=== PATIENT | female | born 1950 | race Caucasian/White ===

== ENCOUNTER 2021-08-31 09:58 | Day surgery (SDC) | payer MEDICARE, OTHER, SELFPAY ==
--- NOTE | 2021-08-31 | EMB_PTH ---
PATIENT: DIONNA BINGHAM [place] [facility] [place][id number] AGE/SX: 71/F ROOM: RE08/31/[address]: Dr. Parul Bangura, MDDOB: 1950 BED: DIS: 08/31/2021 SPEC #: [id number] RECD: 08/31/21 12:12 STATUS: PREMA ANURAG #: [id number] MAVERICK: 08/31/21 00:[address]: Parul Bangura DEPT: SURGICAL PATHOLOGY RECD BY: Sang Velasco ENTERED: 08/31/21 14:09 SP TYPE: ENDOM BX/C CHEPE DR: Dr. Shoshana Overton MD Tissues: Endometrium, NOS Procedures: Surgery Specimen Level IV HEADER OPERATION: Hysteroscopy, D & C Symphion, endometrial polypectomy PRE-OP DIAGNOSIS: PMB, endometrial polyp TISSUE SUBMITTED: Endometrial polyp and curettings MICROSCOPIC DIAGNOSIS Endometrial polyp and curettings: Simple and complex hyperplasia with focal atypia. See comment. DEEPALI:miller 09/01/2021 COMMENT Clinical correlation and appropriate follow up are necessary. Case has been reviewed in consultation with Dr. Lorenz who concurs with the above diagnosis. IDC:[facility] MICROSCOPIC DESCRIPTION Slides are reviewed. GROSS DESCRIPTION Received in fixative is one container labeled with the patient's name and designated endometrial polyp and curettings. The specimen consists of multiple irregular fragments of wiggins-pink soft tissue that in aggregate measure 5 x 3 x 0.6 cm. The entire specimen is submitted in four cassettes. / DEEPALI:miller 08/31/2021 TC:5 CPT: 35096 ADDENDUM ADDENDUM ADDENDUM ADDENDUM ADDENDUM ADDENDUM ADDENDUM ADDENDUM ADDENDUM ADDENDUM ADDENDUM ADDENDUM 10/18/2021 09:40 ADDENDUM 10/18/2021 09:40 ADDENDUM 10/18/2021 09:40 ADDENDUM 10/18/2021 09:40 ADDENDUM 10/18/2021 09:40 This addendum is added to incorporate an outside pathology consultation report. The case was examined at [facility] (#[id number]) and the following diagnosis was rendered. Endometrial polyp, curettings: Well differentiated endometrioid adenocarcinoma, FIGO 1, arising in a background of atypical complex endometrial hyperplasia. Benign endometrial polyp. Please see complete above mentioned consultation report in EMR
--- NOTE | 2021-08-31 10:15 | EKG12_ITS ---
Test Reason : PRE OP Blood Pressure : / mmHG Vent. Rate : 070 BPM Atrial Rate : 070 BPM P-R Int : 154 ms QRS Dur : 076 ms QT Int : 422 ms P-R-T Axes : 066 047 060 degrees QTc Int : 455 ms Normal sinus rhythm Normal ECG Confirmed by SIRISHA ARTEAGA, PEYMAN ([id number]), video editor RICK CORDERO ([id number]) on 09/05/2021 1:16:19 PM Referred By: Parul Bangura Confirmed By:PEYMAN GRIMM MD
[2021-08-31 10:41] VITALS: BP 159/76; PULSE 76; RESP 16; TEMP 37.2; O2SAT 96; BMI 37.0
[2021-08-31] MEDS: Lactated Ringers 1,000 ML 15 ML IV (11:06)
[2021-08-31 11:17] LABS: Hematocrit 45.6 % (37-47); Hemoglobin 15.2 g/dL (12.0-15.0); Mean Corp Hgb Conc 33.3 g/dL (32-36); Mean Platelet Vol. 9.5 fl (6.2-12.0); Platelet Count 367 K/mm3 (150-450); RBC Distribution Width CV 13.1 % (11.6-14.6); RBC Distribution Width SD 41.6 fl (35.1-43.9); Red Blood Count 5.24 M/mm3 (4.2-5.4); White Blood Count 9.3 K/mm3 (4.4-11.0)
--- NOTE | 2021-08-31 11:19 | PCM.PN.BLA ---
Progress Note I have re-examined the patient. There are no clinical changes since date of exam.
[2021-08-31 11:29] LABS: Anion Gap 5 (5-15); BUN 14 mg/dL (7-18); BUN/Creat Ratio 17.5 RATIO (10-20); Calcium,Total 9.1 mg/dL (8.5-10.1); Chloride 107 mmol/L (98-107); EST Glomerular Filtration Rate 75 mL/min (>60); Est Glom Filt Rate - Afr Amer 91 mL/min (>60); Estimated Creatinine Clearance 54.13 ml/min; Glucose 107 mg/dL (74-106); Potassium 4.2 mmol/L (3.5-5.1); Sodium Level 140 mmol/L (136-145)
--- NOTE | 2021-08-31 11:50 | OP.PCM_ITS ---
Report of Operation Date of Procedure: 08/31/21 Pre-Operative Diagnosis: Thickened Endometrium, PMB, Endometrial Polyp Post-Operative Diagnosis: Same Surgery/Procedure Performed:: hysteroscopy, D&C, polypectomy Description of Surgical Findings:: Large endometrial polyp and thickened tissue. both tubal ostia visualized after removal of tissue. Surgeon: Parul Bangrua Type of Anesthesia: MAC Specimen's removed: endometrial polyp, endometrial curettings Drains: none Estimated Blood Loss (mL): <5cc Fluids Replaced: 400 Description of Procedure: informed consent was obtained the patient was taken the operating room she was placed in supine position. She was given anesthesia. She was then placed in the [facility] where she was prepped and draped in the normal sterile fashion. At this time the weighted speculum was placed in the posterior fornix of vagina. Single-tooth tenaculum was used to gently grasp the anterior lip the cervix. At this time the uterine cavity was sounded to approximately 8 cm. Gentle dilatation was performed once adequate dilatation of the cervix was achieved the hysteroscope using normal saline as a distention medium was placed. large endometrial polyp and thickened tissue present. Symphion resecting device used to obtain endometrial curettings and to perform polypectomy. Tissue will be sent to pathology for evaluation. after removal of polypoid tissue bilateral tubal ostia visualized. Tenaculum removed. Good hemostasis. Instrument, lap count correct x 2. fluid deficet 800cc Vaginal Sweep was negative. Grafts/Implants Used: none Procedure Start Time: 11:37 Procedure Stop Time: 11:50 Complications none Admit VTE Documentation VTE Present on Admission: Yes VTE Mechan Device Prophylaxis: SCD's VTE Pharm Prophylaxis ordered?: No Reason prophylaxis not ordered:: Procedure Not Indicated
--- NOTE | 2021-08-31 11:53 | EX.PCM.DISCH ---
Discharge Instructions Procedure D&C Diet Discharge Diet: No restrictions Activity May resume sexual activity in: 1 week Dressing / Incision Call your doctor if you observe: Fever of 101 or Higher, Inability to urinate, Using more than 1 pad per hour and Uncontrolled pain Follow Up Care Please Follow Up With: Parul Bangura MD When: 1-2 weeks post OP if you need an appointment please call [phone] Test Results: Test results from this visit will be discussed in further detail at your follow-up appointment, if applicable. Discharge Plan Admission Attending Provider: Parul Bangura Primary Care Provider: Shoshana Overton Discharge Orders/Prescriptions Prescriptions: No Action losartan 50 mg Tablet 50 mg PO DAILY RF: 0 carbidopa-levodopa 50-200 mg Tablet Extended Release 1 tab PO TID RF: 0 selegiline HCl 5 mg Capsule 5 mg PO BID RF: 0
[2021-08-31 12:00] VITALS: BP 125/70; BP 159/76; PULSE 71; RESP 16; TEMP 36.8; O2SAT 98
[2021-08-31 12:05] VITALS: BP 132/74; BP 159/76; PULSE 71; RESP 16; O2SAT 96
[2021-08-31 12:10] VITALS: BP 130/74; BP 159/76; PULSE 69; RESP 16; O2SAT 95
[2021-08-31 12:15] VITALS: BP 126/71; BP 159/76; PULSE 68; TEMP 37.1; O2SAT 95
[2021-08-31] MEDS: Acetaminophen 500 MG Tablet 1000 MG PO (12:38)
[2021-08-31 12:59] VITALS: BP 115/73; BP 159/76; PULSE 71; RESP 16; TEMP 36.3; O2SAT 96
== END 2021-08-31 23:59 | disposition home or self-care (01) ==
LOC: SDC 10:06 → AC 10:06
PROVIDERS: PCP Internal Medicine; Referring Provider Obstetrics & Gynecology; Visit Provider Obstetrics & Gynecology
PROC: 0UB98ZZ Excision of Uterus, Via Natural or Artificial Opening Endoscopic (ICD-10-PCS; CPT 58558; principal; 2021-08-31 11:10)
DX: N84.0 Polyp of corpus uteri (principal); G20 Parkinson's disease; N95.0 Postmenopausal bleeding; R93.89 Abnormal findings on diagnostic imaging of other specified body structures; I10 Essential (primary) hypertension; N83.202 Unspecified ovarian cyst, left side
CPT/HCPCS: 58558; 00952; 80048; 85027; 88305; 93005; J7120; J2405

== ENCOUNTER → 2025-02-02 | Outpatient (CLI) | payer MEDICARE, OTHER, SELFPAY ==
[2025-02-02 11:15] VITALS: PULSE 103; PULSE 60; PULSE 61; PULSE 66; PULSE 88; PULSE 93; PULSE 95; PULSE 96; O2SAT 91; O2SAT 92; O2SAT 93; O2SAT 95; O2SAT 96
--- NOTE | 2025-02-04 08:53 | PCM.PSN.6M ---
PSN 6 Minute Walk Test 6 Minute Walk Test 6 Minute Walk Test: 6 Minute Walk Test PSN:6-Minute Walk Test Start: 02/02/25 11:33 Freq: Status: Active Protocol: RESP.6MINW Document 02/02/25 11:15 AEH (Rec: 02/02/25 11:37 AEH [id number]) 6 Minute Walk Test Date Performed 02/02/25 Time Performed 11:15 Height 5 ft 3 in Weight: 200 lb Weight in Pounds 200.[address]: Dr. Ham Assistive device None used: Pre-test Oxygen Delivery Room Air Method Pulse Ox (%) 92 Pulse Rate (60-100 60 beats/min) Dyspnea Gretchen Scale ( 0.5 0-10) Exertion Gretchen Scale 6 (6-20) 1st minute Oxygen Delivery Room Air Method Pulse Ox (%) 91 Pulse Rate (60-100 66 beats/min) 2nd minute Oxygen Delivery Room Air Method Pulse Ox (%) 91 Pulse Rate (60-100 88 beats/min) 3rd minute Oxygen Delivery Room Air Method Pulse Ox (%) 93 Pulse Rate (60-100 93 beats/min) 4th minute Oxygen Delivery Room Air Method Pulse Ox (%) 93 Pulse Rate (60-100 96 beats/min) 5th minute Oxygen Delivery Room Air Method Pulse Ox (%) 95 Pulse Rate (60-100 103 H beats/min) 6th minute Oxygen Delivery Room Air Method Pulse Ox (%) 96 Pulse Rate (60-100 95 beats/min) Dyspnea Gretchen Scale ( 1 0-10) Exertion Gretchen Scale 13 (6-20) Post-test Oxygen Delivery Room Air Method Pulse Ox (%) 95 Pulse Rate (60-100 61 beats/min) Full Laps Walked 16 Partial Lap, Number 0 of Tiles Walked Total Distance 944 Walked (ft) Interpretation Interpretation: The patient ambulated 944 feet over the course of 6 minutes beginning on room air without assistive devices. Pretesting oxygen saturation was noted to be 92% on room air. With ambulation, the anne oxygen saturation was 91%. There was no significant exertional oxygen desaturation. Recommendations Recommendations: There is no indication for the use of supplemental oxygen at this time.
== END | disposition home or self-care (01) ==
LOC: PSN 11:11
PROVIDERS: PCP Internal Medicine; Referring Provider Internal Medicine Critical Care Medicine; Visit Provider Internal Medicine Critical Care Medicine
DX: R06.02 Shortness of breath (principal)
CPT/HCPCS: 94618

== ENCOUNTER → 2025-02-09 | Outpatient (CLI) | payer MEDICARE, OTHER, SELFPAY ==
--- OUTSIDE RECORDS SUMMARY | 2025-02-09 19:51 | XMS RPT_ITS | CCD ---
Author Organization [facility] Care Team Providers Care Oxygen Equipment Aide Name Role Phone Meir Overton MD Primary Care Provider LATOUF, BUTROS Primary Care Unavailable ION, SEBASTIEN Referring Unavailable SHANICE DESIR Attending Unavailable NEYALEJOT PARUL ZAFAR Referring Unavail able LATOUF, BUTROS Primary Care Unavailable NEMERRILLT PARUL ZAFAR Referring Unavail able LATOUF, BUTROS Primary Care Unavailable NEMERRILLT PARUL ZAFAR Referring Unavail able LATOUF, BUTROS Primary Care Unavailable PARUL CHANDRA Attending Unavail able LATOUF, BUTROS Primary Care Unavailable PIETER JOHNSTON Attending Unavailable LATOUF, BUTROS Primary Care Unavailable ION, SEBASTIEN Referring Unavailable LATOUF, BUTROS Primary Care Unavailable ION, SEBASTIEN Referring Unavailable ION, SEBASTIEN Referring Unavailable ION, SEBASTIEN Attending Unavailable LATOUF, BUTROS Primary Care Unavailable NASHT RADHA ZAFARRE Attending Unavail able LATOUF, BUTROS Primary Care Unavailable MEIR OVERTON MD Primary Care Unavailable MEIR OVERTON MD Consulting Unavailable MEIR OVERTON MD Attending Unavailable MEIR OVERTON MD Admitting Unavailable PROVIDER, UNKNOWN Consulting Unavailable PROVIDER, UNKNOWN Consulting Unavailable PROVIDER, UNKNOWN Consulting Unavailable MEIR OVERTON MD Primary Care Unavailable MEIR OVERTON MD Consulting Unavailable MEIR OVERTON MD Attending Unavailable MEIR OVERTON MD Admitting Unavailable PROVIDER, UNKNOWN Consulting Unavailable PROVIDER, UNKNOWN Consulting Unavailable PROVIDER, UNKNOWN Consulting Unavailable MEIR OVERTON MD Admitting Unavailable MEIR OVERTON MD Primary Care Unavailable MEIR OVERTON MD Consulting Unavailable MEIR OVERTON MD Attending Unavailable PROVIDER, UNKNOWN Consulting Unavailable PROVIDER, UNKNOWN Consulting Unavailable PROVIDER, UNKNOWN Consulting Unavailable MEIR OVERTON MD Primary Care Unavailable LATOUF, BUTROS MD Consulting Unavailable MEIR OVERTON MD Attending Unavailable MEIR OVERTON MD Admitting Unavailable PROVIDER, UNKNOWN Consulting Unavailable PROVIDER, UNKNOWN Consulting Unavailable PROVIDER, UNKNOWN Consulting Unavailable Tian ARTEAGA, Dr. Anna Primary Care Provider Dr. Meir Oevrton MD Referring Provider Dr. Jose Ham DO Attending Provider [phone] Meir Overton MD Primary Care Provider Meir Overton Referring Unavailable Latouf, Butros Primary Care Unavailable Brown, Jose Attending Unavailable Brown, Jose Attending Unavailable Latouf, Butros Primary Care Unavailable Brown, Jose Consulting Unavailable Brown, Jose Referring Unavailable Brown, Jose Attending Unavailable Latouf, Butros Primary Care Unavailable Brown, Jose Referring Unavailable Brown, Jose Attending Unavailable Latouf, Butros Primary Care Unavailable Jitendra, Jose Referring Unavailable Dr. Jose Ham DO Referring Provider [phone] Dr. Jose Ham DO Other Provider [phone] Allergies Allergy Classification Reported Allergen(s) Allergy Type Date of Onset Reaction(s) Facility (20 sources) Primidone; Translations: [PRIMIDONE] Drug Allergy 09-29-2021 Intolerance [facility] Work Phone: Medications Current Medications Medication Drug Class(es) Dates Sig (Normalized) Sig (Original) [id number] 200 actuat albuterol 0.09 mg/actuat metered dose inhaler (2 sources) beta2-Adrenergi c Agonist Start: 12-23-2024 Albuterol Sulfate (Ventolin Hfa) 90 mcg/actuation HFA aerosol inhaler Active 2 NMA INHALATION EVERY 6 HOURS as needed December 23, 2024 12:00am cholecalciferol 0.125 mg oral capsule (2 sources) Vitamin D Start: 12-23-2024 take 1 capsule by mouth once daily Cholecalciferol (Vitamin D3) 125 mcg (5,000 unit) capsule Active 125 ug PO daily December 23, 2024 12:00am escitalopram 20 mg oral tablet (20 sources) Serotonin Reuptake Inhibitor Start: 03-29-2022 End: 05-01-2025 take 1 tablet by mouth once daily Escitalopram Oxalate 20 mg tablet Active 20 mg PO daily December 23, 2024 12:00am Start: 12-04-2021 End: 12-04-2022 take 1 tablet by mouth once daily escitalopram oxalate (LEXAPRO) 10 mg tablet Take 1 tablet by mouth once daily. 90 tablet 3 12/04/2021 03/29/2022 Discontinued Comment on above: Take 1 tablet by [facility] once daily. iv contrast (will be provided with radiology test) (1 source) Start: 03-16-20 End: 03-17-20 inject 1 dose intravenously once iv contrast (will be provided with radiology test) Indications: Essential tremor MRI Brain Inject, intravenously, once for 1 dose.No IV access, insert saline lock prior to beginning of sedation, infusion, injection of imaging exam.Discontinue saline lock post exam. If Pt. has a central line or IVAD, may access for administration according to line specific nursing protocol.Once exam is complete flush line and de-access according to line specific nursing protocol in the MR contrast administration guidelines link 1 Each 03/16/2024 03/17/2024 Active losartan potassium 50 mg oral tablet (20 sources) Angiotensin 2 Receptor Amelie Start: 08-25-19 take 1 tablet by mouth once daily Losartan 50 mg Tablet Active 50 mg PO DAILY August 25, 2021 1:00am Start: 11-29-2018 take 3 tablets by mo [facility] once daily losartan (COZAAR) 50 mg tablet Take by mouth once daily. 3 11/29/2018 Active Comment on above: Take by mouth once d aily. melatonin 5 mg oral capsule (4 sources) Start: 12-23-2024 End: 12-30-2024 Melatonin 5 mg capsule Active mg PO as needed December 30, 2024 10:15am propranolol hydrochloride 20 mg oral tablet (20 sources) beta-Adrenergic Amelie Start: 05-22-2023 End: 07-04-2025 take 1 tablet by mouth twice daily Propranolol 20 mg tablet Active 20 mg PO TWICE A DAY December 30, 2024 12:00am Start: 10-24-2022 End: 11-20-2022 take 3 tablets by mouth twice daily propranolol (INDERAL) 10 mg tablet Take 3 tablets by mouth twice daily. 180 tablet 5 10/24/2022 11/20/2022 Discontinued Start: 09-18-2022 End: 10-18-2022 take 1 tablet by mouth twice daily propranolol (INDERAL) 20 mg tablet Indications: Parkinsonism, unspecified Parkinsonism type (HCC) Take 1 tablet by mouth twice daily. 60 tablet 0 09/18/2022 10/18/2022 Active Comment on above: Take 1 tablet by marisa twice daily. Take 3 tablets by mo [facility] twice daily. Take 1 tablet by marisa th two times a day. sodium chloride 0.111 meq/ml nasal spray (4 sources) Start: 12-23-2024 End: 12-30-2024 Sodium Chloride (Hankinson Saline) 0.65 % aerosol,spray Active 2 NMA INTRANASAL Q4H as needed December 30, 2024 10:15am while awake Completed/Discontinued Medications Medication Drug Class(es) Dates Sig (Normalized) Sig (Original) acetaminophen 325 mg oral tablet (1 source) Start: 10-18-2021 End: 11-02-2021 take 2 tablets by mouth every six hours as needed acetaminophen (TYLENOL) 325 mg tablet Take 2 tablets by mouth every 6 hours as needed for pain. 60 tablet 1 10/18/2021 11/02/2021 Discontinued Comment on above: Take 2 tablets by mo [facility] every 6 hours as needed for pain. augmented betamethasone 0.0005 mg/mg topical ointment (14 sources) Corticosteroid Start: 06-23-2021 End: 11-20-2022 Aug Betamethasone Dipropionate (DIPROLENE) 0.05 % ointment Apply to affected area as needed. 0 06/23/2021 11/20/2022 Discontinued Comment on above: Apply to affected ar ea as needed. carbidopa 25 mg / levodopa 100 mg oral tablet (20 sources) Aromatic Amino Acid Decarboxylation Inhibitor, Aromatic Amino Acid Start: 05-15-2022 End: 11-20-2022 take 1 tablet by mouth four times daily carbidopa-levodopa (SINEMET) 25-100 mg per tablet Indications: Parkinsonism, unspecified Parkinsonism type (HCC) Take 1 tablet by mouth four times daily. 120 tablet 0 09/18/2022 11/20/2022 Discontinued Start: 02-01-2022 End: 02-01-2023 take 1 tablet by mouth four times daily carbidopa-levodopa CR (SINEMET CR) 50-200 mg per tablet Take 1 tablet by mouth four times daily. 360 tablet 3 02/01/2022 02/01/2023 Active Start: 02-06-2019 End: 12-23-2024 Carbidopa-Levodopa 50-200 mg Tablet Extended Release Discontinued 1 {tbl} PO THREE TIMES A DAY August 25, 2021 1:00am December 23, 2024 3:22pm Comment on above: Take 1 tablet by marisa th three times daily. Take 1 tablet by marisa th four times daily. Take 0.5 tablets by mouth four times daily. Take WITH Sinemet CR doses. ibuprofen 600 mg oral tablet (1 source) Nonsteroidal Anti-inflammatory Drug Start: 10-19-19 End: 11-03-19 take 1 tablet by mouth every six hours as needed ibuprofen (MOTRIN) 600 mg tablet Take 1 tablet by mouth every 6 hours as needed for pain. 30 tablet 1 10/18/2021 11/02/2021 Discontinued Comment on above: Take 1 tablet by marisa th every 6 hours as needed for pain. ondansetron 4 mg oral tablet (1 source) Serotonin-3 Receptor Antagonist Start: 10-19-19 End: 11-03-19 take 1 tablet by mouth every eight hours as needed ondansetron (ZOFRAN) 4 mg tablet Take 1 tablet by mouth every 8 hours as needed for nausea/vomiting. 30 tablet 0 10/18/2021 11/02/2021 Discontinued Comment on above: Take 1 tablet by marisa th every 8 hours as needed for nausea/vomiting. oxyCODONE hydrochloride 5 mg oral tablet (1 source) Opioid Agonist Start: 10-19-19 End: 11-03-19 take 1 tablet by mouth every six hours as needed for pain oxyCODONE IR (ROXICODONE) 5 mg immediate release tablet Indications: Postoperative pain Take 1 tablet by mouth every 6 hours as needed for pain. 20 tablet 0 10/18/2021 11/02/2021 Discontinued Comment on above: Take 1 tablet by marisa th every 6 hours as needed for pain. pantoprazole 40 mg delayed release oral tablet (12 sources) Proton Pump Inhibitor Start: 11-18-19 End: 11-21-19 take 1 tablet by mouth once daily pantoprazole DR (PROTONIX) 40 mg tablet Take 40 mg by mouth once daily. 0 11/17/2021 11/20/2022 Discontinued Comment on above: Take 40 mg by mouth once daily. selegiline hydrochloride 5 mg oral capsule (5 sources) Monoamine Oxidase Inhibitor, Monoamine Oxidase Type B Inhibitor Start: 08-25-19 End: 12-24-19 take 1 capsule by mouth twice daily Selegiline Hcl 5 mg Capsule Discontinued 5 mg PO TWICE A DAY August 25, 2021 1:00am December 23, 2024 3:22pm End: 12-04-2021 take 1 tablet by mouth twice daily at mealtime selegiline (ELDEPRYL) 5 mg tablet Take 5 mg by mouth twice daily with meals. 0 12/04/2021 Discontinued Comment on above: Take 5 mg by mouth t wice daily with meals. topiramate 25 mg oral tablet (7 sources) Start: 11-20-2022 End: 05-22-2023 topiramate (TOPAMAX) 25 mg tablet Indications: migraine prevention Start taking 25 mg at bedtime x1 week. Then increase to 25 mg twice daily x1 week. Then increase to 25 mg in AM and 50 mg at bedtime x1 week. Then increase to 50 mg twice daily and stay at that dose 120 tablet 5 11/20/2022 05/22/2023 Discontinued Comment on above: Start taking 25 mg a t bedtime x1 week. Then increase to 25 mg twice daily x1 week. Then increase to 25 mg in AM and 50 mg at bedtime x1 week. Then increase to 50 mg twice daily and stay at that dose Problems Active Problems Problem Classification Problem Date Documented Da te Episodic/Chronic Cancer of uterus (20 sources) Malignant neoplasm of endometrium of corpus uteri ; Translations: [Malignant neoplasm of endometrium] Onset: 10-17-2021 Chronic Cancer of uterus (1 source) History of malignant neoplasm of endometrium; Translations: [Personal history of malignant neoplasm of other parts of uterus] Episodic Chronic obstructive pulmonary disease and bronchiectasis (1 source) Chronic obstructive pulmonary disease, unspecified; Translations: [Chronic obstructive pulmonary disease, unspecified] Onset: 12-30-2024 Chronic Diabetes mellitus without complication (3 sources) Hyperglycemia, unspecified; Translations: [Hyperglycemia] Onset: 11-19-2024 12-23-2024 Episodic Essential hypertension (20 sources) Essential hypertension; Translations: [Essential (primary) hypertension] Onset: 04-08-2018 02-17-2019 Chronic Genitourinary symptoms and ill-defined conditions (2 sources) Dysuria; Translations: [Dysuria] Episodic Nutritional deficiencies (1 source) Vitamin D deficiency, unspecified; Translations: [Vitamin D deficiency, unspecified] Onset: 11-19-2024 Chronic Other aftercare (1 source) Surgical follow-up; Translations: [Encounter for follow-up examination after completed treatment for conditions other than malignant neoplasm] Episodic Other female genital disorders (20 sources) Endometrial intraepithelial neoplasia; Translations: [Endometrial intraepithelial neoplasia [EIN]] Onset: 10-02-2021 10-02-2021 Chronic Other gastrointestinal disorders (1 source) Diarrhea; Translations: [Diarrhea, unspecified] Episodic Other gastrointestinal disorders (1 source) Abdominal bloating; Translations: [Abdominal distension (gaseous)] Episodic Other gastrointestinal disorders (1 source) Fecal incontinence due to anorectal disorder; Translations: [Full incontinence of feces] Episodic Other gastrointestinal disorders (2 sources) Constipation; Translations: [Constipation, unspecified] 12-23-2024 Episodic Other hereditary and degenerative nervous system conditions (20 sources) Essential tremor; Translations: [Essential tremor] Onset: 07-17-2007 Chronic Other hereditary and degenerative nervous system conditions (1 source) Essential tremor; Translations: [Essential tremor] Onset: 11-20-2022 Chronic Other hereditary and degenerative nervous system conditions (2 sources) Abnormal movement; Translations: [Extrapyramidal and movement disorder, unspecified] 12-23-2024 Chronic Other lower respiratory disease (4 sources) Dyspnea; Translations: [Shortness of breath] 12-30-2024 Episodic Other lower respiratory disease (2 sources) Shortness of breath; Translations: [Shortness of breath] Onset: 12-30-2024 Episodic Other nervous system disorders (2 sources) Tremor; Translations: [Tremor, unspecified] 01-08-2025 Episodic Other nutritional; endocrine; and metabolic disorders (4 sources) Obese class II; Translations: [Class 2 obesity] 12-23-2024 Chronic Other screening for suspected conditions (not mental disorders or infectious disease) (12 sources) Patient encounter status; Translations: [Encounter for screening mammogram for malignant neoplasm of breast] Onset: 05-18-2024 Episodic Residual codes; unclassified (4 sources) Obstructive sleep apnea syndrome; Translations: [Obstructive sleep apnea (adult) (pediatric)] 12-23-2024 Chronic Residual codes; unclassified (2 sources) Insomnia; Translations: [Insomnia, unspecified] 12-23-2024 Episodic Unclassified (3 sources) Parkinsonism; Translations: [Parkinsonism, unspecified Parkinsonism type] 05-22-2023 Chronic Past or Other Problems Problem Classification Problem Date Documented Da te Episodic/Chronic Other non-traumatic joint disorders (1 source) Pain in right wrist; Translations: [Pain in right wrist] Onset: 05-11-2024 Episodic Parkinson`s disease (20 sources) Parkinson's disease; Translations: [Parkinson's disease] Onset: 07-16-2018 Resolved: 11-20-2022 09-29-2021 Chronic Residual codes; unclassified (1 source) Asymptomatic menopausal state; Translations: [Asymptomatic menopausal state] Onset: 05-11-2024 Episodic Results Test Name Value Interpretation Reference Range Facility 6 Minute Walk Teston 025 6 Minute Walk Test y [facility] Pulmonary Services/Neurology [address] [place] [address] MR#: [id number] Acct: [id number] Name: DIONNA BINGHAM Rep #: [id number] : 1950 74 From: Jose Ham DO Referring Dr: Jose Ham DO Status: REG CLI Location: PSN Date: Sex: F C PSN 6 Minute Walk Test 6 Minute Walk Test 6 Minute Walk Test: 6 Minute Walk Test PSN:6-Minute Walk Test Start: 02/02/25 11:33 Freq: Status: Active Protocol: [id number].[id number] Document 02/02/25 11:15 AEH (Rec: 02/02/25 11:37 AEH [id number]) 6 Minute Walk Test Date Performed 02/02/25 Time Performed 11:15 Height 5 ft 3 in Weight: 200 lb Weight in Pounds 200.[address]: Dr. Ham Assistive device None used: Pre-test Oxygen Delivery Room Air Method Pulse Ox (%) 92 Pulse Rate (60-100 60 beats/min) Dyspnea Gretchen Scale ( 0.5 0-10) Exertion Gretchen Scale 6 (6-20) 1st minute Oxygen Delivery Room Air Method Pulse Ox (%) 91 Pulse Rate (60-100 66 beats/min) 2nd minute Oxygen Delivery Room Air Method Pulse Ox (%) 91 Pulse Rate (60-100 88 beats/min) 3rd minute Oxygen Delivery Room Air Method Pulse Ox (%) 93 Pulse Rate (60-100 93 beats/min) 4th minute Oxygen Delivery Room Air Method Pulse Ox (%) 93 Pulse Rate (60-100 96 beats/min) 5th minute Oxygen Delivery Room Air Method Pulse Ox (%) 95 Pulse Rate (60-100 103 H beats/min) 6th minute Oxygen Delivery Room Air Method Pulse Ox (%) 96 Pulse Rate (60-100 95 beats/min) Dyspnea Gretchen Scale ( 1 0-10) Exertion Gretchen Scale 13 (6-20) Post-test Oxygen Delivery Room Air Method Pulse Ox (%) 95 Pulse Rate (60-100 61 beats/min) Full Laps Walked 16 Partial Lap, Number 0 of Tiles Walked Total Distance 944 Walked (ft) Interpretation Interpretation: The patient ambulated 944 feet over the course of 6 minutes beginning on room air without assistive devices. Pretesting oxygen saturation was noted to be 92% on room air. With ambulation, the anne oxygen saturation was 91%. There was no significant exertional oxygen desaturation. Recommendations Recommendations: There is no indication for the use of supplemental oxygen at this time. 02/04/25 0854 Date Jose Ham DO CC: Date Dictated: 02/04/2553 Date Transcribed: 02/04/25852 [place]: Dr. Jose Ham DO Signed Normal [facility] Pulmonary Visit Reporton Pulmonary Visit Report [facility] Pulmonary Medicine of [address] [place] [address] OFFICE VISIT Date of Service: 12/30/24 MR#: [id number] Acct: [id number] Name: DIONNA BINGHAM Rep #: [id number] : 1950 Provider: Dr. Jose Ham DO Age/Sex: 74/F Location: [facility].PMW Status: Signed Assessment and Plan Assessment and Plan (1) SOB (shortness of breath): Status: Acute Plan: The patient presented today for the evaluation of shortness of breath, wheezing and cough, apparently following a recent pneumonia which was treated with antimicrobials and as needed bronchodilator therapy. The patient has never been previously diagnosed with asthma. She is a lifelong non-smoker. Chest imaging demonstrated hyperinflated lung landry and cardiomegaly. While I do not necessarily suspect underlying COPD, based upon her non-smoking status, asthma would certainly be a consideration. At this time, we will obtain baseline pulmonary function studies along with a 6-minute walk test to assess for any exertional hypoxemia. The patient was encouraged to utilize her albuterol rescue inhaler for any symptoms including shortness of breath, wheezing or cough. The patient had a normal exhaled nitric oxide level at today's office visit. If the patient does not perceive any symptom improvement with the use of albuterol and her pulmonary workup is unremarkable, we will consider obtaining an echocardiogram as a neck step. Result: Oral exhaled NO (ppb): 14 Normal: 5-20 ppb (Adult) High Normal/Increased: 20-35 ppb (Adult). Moderately raised exhaled nitric oxide may indicate underlying inflammation, but notes that cold and influenza can raise exhaled nitric oxide in some patients have higher baseline levels than others. High: >35 ppb (Adult). Indicative of ongoing eosinophilic inflammation. Symptomatic patient likely to respond to steroids. Possible causes include: Poor compliance, recent allergen exposure, steroid dose inadequate, and steroid resistance. (2) Obesity, class 2: Status: Chronic Plan: Weight loss through dietary modification and a graded exercise regimen is strongly encouraged. (3) ETHEL (obstructive sleep apnea): Status: Chronic Plan: The patient has a longstanding history of obstructive sleep apnea and is currently prescribed nocturnal CPAP therapy with a pressure support of 11 cm of water. However, the patient is no longer compliant with its use. Orders: Orders Simple Pulmonary Exercise Test 02/02/25 R06.02 - Shortness of breath PFT Complete - DLCO, Spirometry b/a bronchodilators, lung volumes 02/09/25 R06.02 - Shortness of breath NIOX Today R06.02 - Shortness of breath HPI HPI Comments Details: The patient is a 74-year-old female who presents to the clinic today in referral for the evaluation of COPD. The patient reported that approximately 1.5 months ago she began to experience a cough and shortness of breath. The patient was subsequently treated for a presumptive infection by her PCP and placed on albuterol. The patient is a lifelong non-smoker, but she did grow up in a smoking household. She has never been diagnosed with asthma previously. While her symptoms initially resolved with the use of antibiotics and albuterol, she has continued to experience exertional dyspnea. In addition, there is also concerned about associated wheezing. She did report that when utilized, the albuterol did provide some interval symptom relief. She does not currently keep any animals as pets in her home environment. She was previously employed working for the [employer]. She last used her albuterol rescue inhaler a couple of weeks ago. In addition to the aforementioned, she has a known history of obstructive sleep apnea and is currently prescribed nocturnal CPAP therapy with a pressure support of 11 cm of water. However, the patient has been noncompliant with his use for quite some time. She reported that her last sleep study occurred in [place] 3 to 4 years ago. During her workup by her PCP in November, a chest x-ray was obtained through [facility], which apparently demonstrated evidence of cardiomegaly and hyperinflated lung landry, which prompted the primary care provider to be concerned for the presence of COPD. Intake Vital Signs 08/31/21 10:41 12/30/24 08:43 Height 5 ft 3 in 5 ft 3 in Weight: 216 lb BMI 38.2 BP 142/80 H Blood Pressure Location Rt brachial Position Sitting Respiration 20 H Pulse 48 L Pulse Source Monitor Temp 97.5 F L Temperature Source Temporal Artery Pulse Oximetry (%) 96 Oxygen Delivery Method room air Intake Visit Reasons: COPD Campaign Developer Required: No DME Vendor: [place] - Accompanied by: Daughter Allergies No Known Allergies Allergy (Verified 12/30/24 10:15) Medications ???Medicati (more content not included)... Normal [facility] CHEST 2 VIEWSon 11-19-2024 CHEST [address] [address] Patient: DIONNA BINGHAM Phone#: : 1950 Age: 74 Gender: F Pt. Type: Out Account: [id number] Location: 010 Ordering: MEIR OVERTON Exam Date: 11/19/2024/15:37 Family Phys: Charge Code: [id number] Physician: [place] Order #: [id number] Dose#: PROCEDURE: X-RAY CHEST 2 VIEWS COMPARISON: [facility], XR, CHEST 2 VIEWS, 03/24/2018, 15:06. INDICATIONS: Cough. FINDINGS: LUNGS: Hyperaeration of the lung field. No significant pulmonary parenchymal abnormalities. VASCULATURE: Normal. Unremarkable pulmonary vasculature. CARDIAC: Cardiomegaly MEDIASTINUM: Normal. No visible mass or adenopathy. PLEURA: Normal. No effusion or pleural thickening. BONES: Degenerative changes of the spine OTHER: Negative. CONCLUSION: 1. Hyperaeration lung landry, correlate for COPD 2. Cardiomegaly Dictated by: Mera Pickard MD on 11/19/2024 at 16:24 Approved by: Mera Pickard MD on 11/19/2024 at 16:26 Normal [facility] CNOVon 08-21-2024 CNOV Office Visit (OBGYWM ) BERNARDODIONNA Patel ([id number]) 1950 F Date Time Provider Department 08/21/24 11:20 AM PARUL CHANDRA OBGYWM During your visit today, we recorded the following information about you: Blood pressure Weight Height 146/82 100.2 kg 1.613 m Parul Chandra MD 08/21/2024 1:12 PM Signed Marketing Operations Specialist offered: Patient declinesSheri Caraballo is a 74 year old who presents for an annual gynecologic exam without complaints. Still with diarrhea - will make appt with GI Postmenopausal: Yes Sexually active: No Last mammogram: 2023 f/u views History of abnormal mammogram: No Sexually active: No History of industrial specialist malignancy: ENDOMETRIAL CANCER OB History T3 L3 SAB0 IAB0 Ectopic0 Multiple0 Live Births0 Comment: 3 vaginal deliveries Computator History LMP: Hysterectomy Age at Menarche: Age at First : Age at Menopause: Computator History Comments: Sexual Activity: Not Currently; No partner data on record Contraception: No contraception data on record PAST MEDICAL HISTORY Diagnosis Date Depression Endometrial cancer (HCC) Hypertension PONV (postoperative nausea and vomiting) Post-operative nausea and vomiting Sleep apnea + cpap PAST SURGICAL HISTORY Procedure Laterality Date ARTHRP KNE CONDYLEANDPLATU MEDIALANDLAT COMPARTMENTS Right 2012 Knee replacement, total CATARACT EXTRACTION HX Bilateral 2019 CHOLECYSTECTOMY 1972 Cholecystectomy DANDC, DIAG AND/OR THERAPEUTIC 08/31/2021 Polypectomy DANDC- simple and complex with atypia REMOVAL OF OVARY/TUBE(S) 10/18/2021 TLH, UTERUS 250 G OR LES 10/18/2021 w/ sentinel lymph node mapping and dissection UNSPECIFIED ORAL SURGERY PROCEDURE, BY REPORT FAMILY HISTORY Problem Relation Age of Onset No Known Problems Father unknown history Breast Cancer Mother 80 other (macular degeneration) Mother No Known Problems Brother Cancer Brother due to exposure in No Known Problems Sister Uterine Cancer No Family History Ovarian cancer No Family History Prostate Cancer No Family History Colon Cancer No Family History SOCIAL HISTORY Social History Tobacco Use Smoking status: Never Smokeless tobacco: Never Vaping Use Vaping status: Never Used Substance Use Topics Alcohol use: Yes Comment: occasionally Drug use: No REVIEW OF SYSTEMS Abdomen: No bloating, early satiety, indigestion, or increased flatulence. ++ diarrhea Bladder: No dysuria, gross hematuria, urinary frequency, urinary urgency, or incontinence Breast: No breast lumps, nipple d/c, overlying skin changes, redness or skin retraction Allergies and current medication updated:Yes SENSITIVE EXAM: The sensitive examination was discussed with the Patient or Patient's Authorized Home Service Technician. As applicable, any other physician, advance practice provider, medical student, or other health professional student that will be observing or involved in the sensitive examination for educational or training purposes was discussed with the Patient or Authorized Home Service Technician. The Patient or Authorized Home Service Technician has agreed to proceed with the sensitive examination. (Sensitive examination includes inspection and/or palpation of the breasts, pelvis, prostate and anorectal regions). EXAM: BP 146/82 Ht 5' 3.5 (1.61m) Wt 221 lb (100.2kg) BMI 38.53 kg/(m2). GENERAL: pleasant, female in no apparent distress HEENT: Normocephalic, atraumatic, mucus membranes moist, and no lesions NECK: Supple, full range of motion, no adenopathy, and thyroid normal DERMATOLOGY: Normal, without lesions, non-icteric, and non-hirsute BREAST: soft, non-tender, symmetric, no dominant mass, normal nipple-areolar complex, no lymphadenopathy, and no nipple discharge CHEST: Normal inspiratory effort ABDOMEN: soft, non-tender, and no masses PELVIC: external genitalia normal, normal Bartholin's glands, urethra, Geneseo's glands, no vulvar lesions, good vaginal support, physiologic discharge present, normal appearing perineal body and perianal region, cervix surgically absent BIMANUAL: no adnexal masses, non-tender, and uterus surgically absent RECTOVAGINAL: deferred. NEURO: alert and oriented x3,exam grossly non-focal EXTREMITIES: normal ASSESSMENT/PLAN: 1) Health maintenance: Pap/HPV screening no longer needed Mammogram ordered Mammogram up to date Nutrition, exercise and routine health maintenance exams reviewed. Colon cancer screening: previously ordered- needs to schedule BMD: done in [place] 2) Follow up one year or sooner as needed Parul Bangura MD Allergies As of Date: 08/21/2024 Noted Allergy Reaction PRIMIDONE 09/29/2021 5 - Intolerance Date Reviewed: 08/21/2024 Reviewed by: Katherine Cortés MA - Fully Assessed Reason for Visit: Yearly Exam [187] Primary Visit Diagnosis:Encounte (more content not included)... [facility] DBT Breast - left diagnostic for implanton 07-14-2024 IMPRESSION: Complicated cyst in the left breast is probably benign. A follow-up in 6 months is recommended. BI-RADS Category 3: Probably Benign RISK: Based on the Tyrer-Cuzick (TC) risk assessment model, this patient has a 2.6% lifetime risk of developing breast cancer, meaning they are at average risk for developing breast cancer. However, this is only an estimate based on available history provided on the patient's questionnaire. We encourage all patients to talk with their providers about these results, further recommendations for managing breast health, and appropriate supplemental screening options if the patient has dense breast tissue. Interpreting Radiologist: Zev Johnston M.D. Electronically signed on: 07/14/2024 [place] Mason: NORBERTO Kumarrijefferson Date/Time: Jul 14 2024 10:01A Dictated by: ZEV JOHNSTON MD This examination was interpreted and the report reviewed and electronically signed by: ZEV JOHNSTON MD on Jul 14 2024 10:37AM [facility] DIVISION OF RADIOLOGY * * *Final Report* * * DATE OF EXAM: Jul 14 2024 10:05AM [facility] 0628 - ANTONELLA DIAG W MEKA LT / PROCEDURE REASON: Abnormal mammogram * * * * Physician Interpretation * * * * RESULT: [place] [address] #[id number] - ANTONELLA DIAG W MEKA LT #[id number] - ANTONELLA [employer] BREAST LTD LT HISTORY: Patient is 74 years old and is seen for diagnostic evaluation of callback in the left breast. The patient has a history of uterine cancer at age 71. COMPARISON STUDIES: The present examination has been compared to prior imaging studies dated 05/11/2022 (mammogram), 05/17/2023 (mammogram) and 05/18/2024 (mammogram). MAMMOGRAM TECHNIQUE: The study was acquired using full field digital technology and interpreted from soft copy. Digital Breast Tomosynthesis (DBT) images were obtained and used to assist in the interpretation of this examination. Computer-aided detection was utilized by the radiologist in the interpretation of this examination. MAMMOGRAM FINDINGS: There are scattered areas of fibroglandular density. There is an isodense asymmetry measuring 0.9 cm with circumscribed margins in the left breast. ULTRASOUND TECHNIQUE: Targeted ultrasound of the indicated area was performed. Lopes scale images were saved. ULTRASOUND FINDINGS: Ultrasound demonstrates a complicated cyst measuring 0.9 cm in the left breast at 11 o'clock. Internal echotexture is hypoechoic. Color flow imaging demonstrates vascularity is not present. DIVISION OF RADIOLOGY Provider, [facility] - 07/14/2024 * * *Final Report* * * DATE OF EXAM: Jul 14 2024 10:05AM [facility] 0628 - ANTONELLA DIAG W MEKA LT / PROCEDURE REASON: Abnormal mammogram * * * * Physician Interpretation * * * * RESULT: [facility] [address] [place] [address] #[id number] - [facility] JASMINE Brito MEKA LT #[id number] - [facility] US BREAST LTD LT HISTORY: Patient is 74 years old and is seen for diagnostic evaluation of callback in the left breast. The patient has a history of uterine cancer at age 71. COMPARISON STUDIES: The present examination has been compared to prior imaging studies dated 05/11/2022 (mammogram), 05/17/2023 (mammogram) and 05/18/2024 (mammogram). MAMMOGRAM TECHNIQUE: The study was acquired using full field digital technology and interpreted from soft copy. Digital Breast Tomosynthesis (DBT) images were obtained and used to assist in the interpretation of this examination. Computer-aided detection was utilized by the radiologist in the interpretation of this examination. MAMMOGRAM FINDINGS: There are scattered areas of fibroglandular density. There is an isodense asymmetry measuring 0.9 cm with circumscribed margins in the left breast. ULTRASOUND TECHNIQUE: Targeted ultrasound of the indicated area was performed. Lopes scale images were saved. ULTRASOUND FINDINGS: Ultrasound demonstrates a complicated cyst measuring 0.9 cm in the left breast at 11 o'clock. Internal echotexture is hypoechoic. Color flow imaging demonstrates vascularity is not present. IMPRESSION IMPRESSION: Complicated cyst in the left breast is probably benign. A follow-up in 6 months is recommended. BI-RADS Category 3: Probably Benign RISK: Based on the Tyrer-Cuzick (TC) risk assessment model, this patient has a 2.6% lifetime risk of developing breast cancer, meaning they are at average risk for developing breast cancer. However, this is only an estimate based on available history provided on the patient's questionnaire. We encourage all patients to talk with their providers about these results, further recommendations for managing breast health, and appropriate supplemental screening options if the patient has dense breast tissue. Interpreting Radiologist: Zev Johnston M.D. Electronically signed on: 07/14/2024 [place] Mason: NORBERTO Transcribe Date/Time: Jul 14 2024 10:01A Dictated by: ZEV JOHNSTON MD This examination was interpreted and the report reviewed and electronically signed by: ZEV JOHNSTON MD on Jul 14 2024 10:37AM EST [facility] ANTONELLA OVIEDOG W MEKA LTon 024 ANTONELLA DIAG W MEKA LT * * *Final Report* * * DATE OF EXAM: Jul 14 2024 10:05AM [facility] 0628 - ANTONELLA DIAG W MEKA LT / PROCEDURE REASON: Abnormal mammogram * * * * Physician Interpretation * * * * RESULT: [address] [address] [place] [address] #[id number] - ANTONELLA DIAG W MEKA LT #[id number] - [facility] US BREAST LTD LT HISTORY: Patient is 74 years old and is seen for diagnostic evaluation of callback in the left breast. The patient has a history of uterine cancer at age 71. COMPARISON STUDIES: The present examination has been compared to prior imaging studies dated 05/11/2022 (mammogram), 05/17/2023 (mammogram) and 05/18/2024 (mammogram). MAMMOGRAM TECHNIQUE: The study was acquired using full field digital technology and interpreted from soft copy. Digital Breast Tomosynthesis (DBT) images were obtained and used to assist in the interpretation of this examination. Computer-aided detection was utilized by the radiologist in the interpretation of this examination. MAMMOGRAM FINDINGS: There are scattered areas of fibroglandular density. There is an isodense asymmetry measuring 0.9 cm with circumscribed margins in the left breast. ULTRASOUND TECHNIQUE: Targeted ultrasound of the indicated area was performed. Lopes scale images were saved. ULTRASOUND FINDINGS: Ultrasound demonstrates a complicated cyst measuring 0.9 cm in the left breast at 11 o'clock. Internal echotexture is hypoechoic. Color flow imaging demonstrates vascularity is not present. IMPRESSION: Complicated cyst in the left breast is probably benign. A follow-up in 6 months is recommended. BI-RADS Category 3: Probably Benign RISK: Based on the Tyrer-Cuzick (TC) risk assessment model, this patient has a 2.6% lifetime risk of developing breast cancer, meaning they are at average risk for developing breast cancer. However, this is only an estimate based on available history provided on the patient's questionnaire. We encourage all patients to talk with their providers about these results, further recommendations for managing breast health, and appropriate supplemental screening options if the patient has dense breast tissue. Interpreting Radiologist: Zev Johnston M.D. Electronically signed on: 07/14/2024 [place] Mason: NORBERTO Kumarrijefferson Date/Time: Jul 14 2024 10:01A Dictated by: ZEV JOHNSTON MD This examination was interpreted and the report reviewed and electronically signed by: ZEV JOHNSTON MD on Jul 14 2024 10:37AM EST [id number] [facility] [place] US BREAST LTD LTon 07-14 ANTONELLA US BREAST LTD LT * * *Final Report* * * DATE OF EXAM: Jul 14 2024 10:31AM [facility] 0593 - [facility] BREAST LTD LT / PROCEDURE REASON: Abnormal mammogram * * * * Physician Interpretation * * * * [place] [address] #[id number] - [facility] DIAG W MEKA LT #[id number] - [facility] [employer] BREAST LTD LT HISTORY: Patient is 74 years old and is seen for diagnostic evaluation of callback in the left breast. The patient has a history of uterine cancer at age 71. COMPARISON STUDIES: The present examination has been compared to prior imaging studies dated 05/11/2022 (mammogram), 05/17/2023 (mammogram) and 05/18/2024 (mammogram). MAMMOGRAM TECHNIQUE: The study was acquired using full field digital technology and interpreted from soft copy. Digital Breast Tomosynthesis (DBT) images were obtained and used to assist in the interpretation of this examination. Computer-aided detection was utilized by the radiologist in the interpretation of this examination. MAMMOGRAM FINDINGS: There are scattered areas of fibroglandular density. There is an isodense asymmetry measuring 0.9 cm with circumscribed margins in the left breast. ULTRASOUND TECHNIQUE: Targeted ultrasound of the indicated area was performed. Lopes scale images were saved. ULTRASOUND FINDINGS: Ultrasound demonstrates a complicated cyst measuring 0.9 cm in the left breast at 11 o'clock. Internal echotexture is hypoechoic. Color flow imaging demonstrates vascularity is not present. IMPRESSION: Complicated cyst in the left breast is probably benign. A follow-up in 6 months is recommended. BI-RADS Category 3: Probably Benign RISK: Based on the Tyrer-Cuzick (TC) risk assessment model, this patient has a 2.6% lifetime risk of developing breast cancer, meaning they are at average risk for developing breast cancer. However, this is only an estimate based on available history provided on the patient's questionnaire. We encourage all patients to talk with their providers about these results, further recommendations for managing breast health, and appropriate supplemental screening options if the patient has dense breast tissue. Interpreting Radiologist: Zev Johnston M.D. Electronically signed on: 07/14/2024 [place] Mason: NORBERTO Transcribe Date/Time: Jul 14 2024 10:22A Dictated by : ZEV JOHNSTON MD This examination was interpreted and the report reviewed and electronically signed by: ZEV JOHNSTON MD on Jul 14 2024 10:37AM EST [id number] [facility] No Panel InformationOrdered By: [facility] Provider on 07-14-2024 [facility] No Panel Informationon 07-14 Radiology Study observation (narrative) [facility] US Breast - left limitedon 1 09-14-2023 IMPRESSION: Complicated cyst in the left breast is probably benign. A follow-up in 6 months is recommended. BI-RADS Category 3: Probably Benign RISK: Based on the Tyrer-Cuzick (TC) risk assessment model, this patient has a 2.6% lifetime risk of developing breast cancer, meaning they are at average risk for developing breast cancer. However, this is only an estimate based on available history provided on the patient's questionnaire. We encourage all patients to talk with their providers about these results, further recommendations for managing breast health, and appropriate supplemental screening options if the patient has dense breast tissue. Interpreting Radiologist: Zev Johnston M.D. Electronically signed on: 07/14/2024 [place] Mason: NORBERTO Transcrijefferson Date/Time: Jul 14 2024 10:22A Dictated by : ZEV JOHNSTON MD This examination was interpreted and the report reviewed and electronically signed by: ZEV JOHNSTON MD on Jul 14 2024 10:37AM EST DIVISION OF RADIOLOGY * * *Final Report* * * DATE OF EXAM: Jul 14 2024 10:31AM [facility] 0593 - ANT[facility]A US BREAST LTD LT / PROCEDURE REASON: Abnormal mammogram * * * * Physician Interpretation * * * * [id number] #[id number] - ANT[facility]LLA DIAG W MEKA LT #[id number] - [facility] US BREAST LTD LT HISTORY: Patient is 74 years old and is seen for diagnostic evaluation of callback in the left breast. The patient has a history of uterine cancer at age 71. COMPARISON STUDIES: The present examination has been compared to prior imaging studies dated 05/11/2022 (mammogram), 05/17/2023 (mammogram) and 05/18/2024 (mammogram). MAMMOGRAM TECHNIQUE: The study was acquired using full field digital technology and interpreted from soft copy. Digital Breast Tomosynthesis (DBT) images were obtained and used to assist in the interpretation of this examination. Computer-aided detection was utilized by the radiologist in the interpretation of this examination. MAMMOGRAM FINDINGS: There are scattered areas of fibroglandular density. There is an isodense asymmetry measuring 0.9 cm with circumscribed margins in the left breast. ULTRASOUND TECHNIQUE: Targeted ultrasound of the indicated area was performed. Lopes scale images were saved. ULTRASOUND FINDINGS: Ultrasound demonstrates a complicated cyst measuring 0.9 cm in the left breast at 11 o'clock. Internal echotexture is hypoechoic. Color flow imaging demonstrates vascularity is not present. DIVISION OF RADIOLOGY Provider, [facility] - 07/14/2024 * * *Final Report* * * DATE OF EXAM: Jul 14 2024 10:31AM [facility] 0593 - ANTONELLA [employer] BREAST LTD LT / PROCEDURE REASON: Abnormal mammogram * * * * Physician Interpretation * * * * [place] [place] [id number] #[id number] - ANT[facility]LLA DIAG W MEKA LT #[id number] - [facility] US BREAST LTD LT HISTORY: Patient is 74 years old and is seen for diagnostic evaluation of callback in the left breast. The patient has a history of uterine cancer at age 71. COMPARISON STUDIES: The present examination has been compared to prior imaging studies dated 05/11/2022 (mammogram), 05/17/2023 (mammogram) and 05/18/2024 (mammogram). MAMMOGRAM TECHNIQUE: The study was acquired using full field digital technology and interpreted from soft copy. Digital Breast Tomosynthesis (DBT) images were obtained and used to assist in the interpretation of this examination. Computer-aided detection was utilized by the radiologist in the interpretation of this examination. MAMMOGRAM FINDINGS: There are scattered areas of fibroglandular density. There is an isodense asymmetry measuring 0.9 cm with circumscribed margins in the left breast. ULTRASOUND TECHNIQUE: Targeted ultrasound of the indicated area was performed. Lopes scale images were saved. ULTRASOUND FINDINGS: Ultrasound demonstrates a complicated cyst measuring 0.9 cm in the left breast at 11 o'clock. Internal echotexture is hypoechoic. Color flow imaging demonstrates vascularity is not present. IMPRESSION IMPRESSION: Complicated cyst in the left breast is probably benign. A follow-up in 6 months is recommended. BI-RADS Category 3: Probably Benign RISK: Based on the Tyrer-Cuzick (TC) risk assessment model, this patient has a 2.6% lifetime risk of developing breast cancer, meaning they are at average risk for developing breast cancer. However, this is only an estimate based on available history provided on the patient's questionnaire. We encourage all patients to talk with their providers about these results, further recommendations for managing breast health, and appropriate supplemental screening options if the patient has dense breast tissue. Interpreting Radiologist: Zev Johnston M.D. Electronically signed on: 07/14/2024 [place] Mason: NORBERTO Transcribe Date/Time: Jul 14 2024 10:22A Dictated by : ZEV JOHNSTON MD This examination was interpreted and the report reviewed and electronically signed by: ZEV JOHNSTON MD on Jul 14 2024 10:37AM EST [facility] 05-20-2024 [facility] Telephone [facility] DION[facility] BINGHAM ([id number]) 1950 F Date Time Provider Department 05/20/24 ANTONELLA RODRIGUEZ During your visit today, we recorded the following information about you: Allergies As of Date: 05/20/2024 Noted Allergy Reaction PRIMIDONE 09/29/2021 5 - Intolerance Date Reviewed: 05/08/2024 Reviewed by: Shanice Desir APRN.VISUAL ARTS TEACHER - Fully Assessed Reason for Visit: Mammogram Result Call Back [[id number]] Prescriptions as of 05/20/2024 - escitalopram oxalate (LEXAPRO) 20 mg tablet Take 1 tablet by mouth once daily. - propranolol (INDERAL) 20 mg tablet Take 1 tablet by mouth two times a day. - losartan (COZAAR) 50 mg tablet Take by mouth once daily. 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 Patient's comments on the Web/Netragonhart cancellations: I do not want to be considered for this procedure now. Sending message to referring provider to notify. Allergies As of Date: 05/18/2024 Noted Allergy Reaction PRIMIDONE 09/29/2021 5 - Intolerance Date Reviewed: 05/08/2024 Reviewed by: Shanice Desir APRN.VISUAL ARTS TEACHER - Fully Assessed Reason for Visit: DBS Eval Cancellation [Other] Prescriptions as of 05/18/2024 - escitalopram oxalate (LEXAPRO) 20 mg tablet Take 1 tablet by mouth once daily. - propranolol (INDERAL) 20 mg tablet Take 1 tablet by mouth two times a day. - losartan (COZAAR) 50 mg tablet Take by mouth once daily. 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 Endometrial cancer (HCC) [C54.1] 10/17/2021 Encounter Status:Closed by FAUSTO BARNES on 05/18/24 [facility] ANTONELLA SCREENING W Obed 05-18 ANTONELLA SCREENING W MEKA * * *Final Report* * * DATE OF EXAM: May 18 2024 11:52AM [facility] 0582 - ANTONELLA SCREENING W MEKA / PROCEDURE REASON: Encounter for screening mammogram for breast cancer * * * * Physician Interpretation * * * * RESULT: [facility] [place] [address] HISTORY: Patient is 74 years old and is seen for screening and is asymptomatic in both breasts. The patient has a history of uterine cancer at age 71. COMPARISON STUDIES: The present examination has been compared to prior imaging studies dated 05/11/2022 (mammogram) and 05/17/2023 (mammogram). MAMMOGRAM TECHNIQUE: The study was acquired using full field digital technology and interpreted from soft copy. Digital Breast Tomosynthesis (DBT) images were obtained and used to assist in the interpretation of this examination. Computer-aided detection was utilized by the radiologist in the interpretation of this examination. MAMMOGRAM FINDINGS: There are scattered areas of fibroglandular density. There is a focal asymmetry in the upper inner quadrant of the left breast. No suspicious masses, calcifications or other abnormalities are seen in the right breast. IMPRESSION: Focal asymmetry in the left breast requires additional evaluation. Diagnostic mammogram and possible ultrasound is recommended. No suspicious masses, calcifications or other abnormalities are seen in the right breast. BI-RADS Category 0: Incomplete: Needs Additional Imaging Evaluation RISK: Based on the Tyrer-Cuzick (TC) risk assessment model, this patient has a 2.6% lifetime risk of developing breast cancer, meaning they are at average risk for developing breast cancer. However, this is only an estimate based on available history provided on the patient's questionnaire. We encourage all patients to talk with their providers about these results, further recommendations for managing breast health, and appropriate supplemental screening options if the patient has dense breast tissue. Interpreting Radiologist: Antonella Rodriguez M.D. Electronically signed on: 05/19/2024 [place] Mason: NORBERTO Transcribe Date/Time: May 18 2024 11:24A Dictated by: ANTONELLA RODRIGUEZ MD This examination was interpreted and the report reviewed and electronically signed by: ANTONELLA RODRIGUEZ MD on May 19 2024 8:26AM EST [id number] [facility] CBC + DIFFon 05-11-2024 Baso # 0.03 x10EE3/UL Normal 0.00 - 0.10 [facility] Comment on above: Performed By: #### 2 77593 #### [place] [address] Basophils/100 WBC (Bld) 0.3 % Normal 0.0 - 2.0 [facility] Comment on above: Performed By: #### 2 10111 #### [facility],[address] [place] [address] CBC + DIFF Normal [facility] Comment on above: Result Comment: CBC- COMPLETE BLOOD COUNT Performed By: #### 2 97474 #### [facility],[address] [place] [address] 45816 EO # 0.40 x10EE3/UL Normal 0.00 - 0.50 [facility] Comment on above: Performed By: #### 2 14835 #### [facility],[address] [place] [address] 61762 Eosinophils/100 WBC (Bld) 4.9 % Normal 0.0 - 7.0 [facility] Comment on above: Performed By: #### 2 35469 #### [facility],[address] [place] [address] 52256 Erythrocyte distribution width (RBC) [Ratio] 14.1 % Normal 12.0 - 15.6 [facility] Comment on above: Performed By: #### 2 37207 #### [facility],[address] [place] [address] 18408 Hematocrit (Bld) [Volume fraction] 45.0 % Normal 34.0 - 46.0 [facility] Comment on above: Performed By: #### 2 75070 #### [facility],[address] [place] [address] 35735 Hemoglobin (Bld) [Mass/Vol] 15.0 g/dL Normal 12.0 - 16.0 [facility] Comment on above: Performed By: #### 2 70383 #### [facility],[address] [place] [address] 58350 Lymph # 2.40 x10EE3/UL Normal 0.80 - 2.80 [facility] Comment on above: Performed By: #### 2 15508 #### [facility],[address] [place] [address] 74038 Lymphocytes/100 WBC (Bld) 28.8 % Normal 20.0 - 45.0 [facility] Comment on above: Performed By: #### 2 57199 #### [facility],[address] [place] [address] 68227 MANUAL DIFF N/A Normal [facility] Comment on above: Performed By: #### 2 09429 #### [facility],[address] [place] [address] MCH (RBC) [Entitic mass] 29 pg Normal 27 - 33 [facility] Comment on above: Performed By: #### 2 98211 #### [facility],[address] [place] [address] MCHC 33 X10 3 Normal 32 - 36 [facility] Comment on above: Performed By: #### 2 27544 #### [facility],[address] [place] [address] MCV (RBC) [Entitic vol] 88 fL Normal 80 - 99 [facility] Comment on above: Performed By: #### 2 69596 #### [facility],[address] [place] [address] [place] # 0.55 x10EE3/UL Normal 0.20 - 1.00 [facility] Comment on above: Performed By: #### 2 19892 #### [facility],[address] [place] [address] MONOS % 6.5 % Normal 0.0 - 10.0 [facility] Comment on above: Performed By: #### 2 18299 #### [facility],[address] [place] [address] Morphology Anton (Bld) [Interp] N/A Normal [facility] Comment on above: Performed By: #### 2 42606 #### [facility],[address] [place] [address] Neut # 4.96 x10EE3/UL Normal 1.50 - 7.10 [facility] Comment on above: Performed By: #### 2 72329 #### [facility],[address] [place] [address] Neutrophils/100 WBC (Bld) 59.5 % Normal 46.0 - 76.0 [facility] Comment on above: Performed By: #### 2 38858 #### [facility],[address] [place] [address] 41518 PLATELET 326 x10EE3/UL Normal 150 - 450 [facility] Comment on above: Performed By: #### 2 70787 #### [facility],[address] [place] [address] 78797 Platelet mean volume (Bld) [Entitic vol] 7.7 fL Normal 6.6 - 10.5 [facility] Comment on above: Result Comment: AUTO MATED DIFFERENTIAL Performed By: #### 2 61615 #### [facility],[address] [place] [address] 98879 RBC 5.14 x 10EE6/UL Normal 4.10 - 5.30 [facility] Comment on above: Performed By: #### 2 75888 #### [facility],[address] [place] [address] 60990 WBC 8.3 x 10EE3/UL Normal 4.5 - 10.8 [facility] Comment on above: Performed By: #### 2 88659 #### [facility],[address] [place] [address] 77889 CMP with eGFRon 05-11-2024 AGE 74 years Normal [facility] Comment on above: Performed By: #### 2 77383 #### [facility],[address] [place] [address] 25325 Albumin [Mass/Vol] 3.1 g/dL Low 3.4 - 5.0 [facility] Comment on above: Performed By: #### 2 02572 #### [facility],[address] [place] [address] 85961 Albumin/Globulin [Mass ratio] 0.7 {ratio} Low 0.9 - 1.6 [facility] Comment on above: Performed By: #### 2 34151 #### [facility],[address] [place] [address] 48123 ALK PHOS 76 U/L Normal 46 - 116 [facility] Comment on above: Performed By: #### 2 06436 #### [facility],[address] [place] [address] 10841 ALT [Catalytic activity/Vol] 24 U/L Normal 16 - 63 [facility] Comment on above: Performed By: #### 2 74608 #### [facility],[address] [place] [address] 79759 Anion gap [Moles/Vol] 11 mmol/L Normal 10 - 20 [facility] Comment on above: Performed By: #### 2 65805 #### [facility],[address] [place] [address] 08215 AST [Catalytic activity/Vol] 23 U/L Normal 13 - 39 [facility] Comment on above: Performed By: #### 2 62870 #### [facility],[address] [place] [address] 44394 B/C RATIO 19 ratio Normal 0 - 30 [facility] Comment on above: Performed By: #### 2 47125 #### [facility],[address] [place] [address] 46595 Bilirubin [Mass/Vol] 0.5 mg/dL Normal 0.2 - 1.0 [facility] Comment on above: Performed By: #### 2 48178 #### [facility],[address] [place] [address] 64043 Calcium [Mass/Vol] 8.9 mg/dL Normal 8.5 - 10.1 [facility] Comment on above: Performed By: #### 2 53342 #### [facility],[address] [place] [address] 13917 Chloride [Moles/Vol] 107 mmol/L Normal 98 - 107 [facility] Comment on above: Performed By: #### 2 77837 #### [facility],[address] [place] [address] 46550 CMP with eGFR Normal [facility] Comment on above: Result Comment: COMP REHENSIVE METABOLIC PANEL Performed By: #### 2 66106 #### [facility],[address] [place] [address] 42396 CO2 [Moles/Vol] 30.1 mmol/L Normal 21.0 - 32.0 [facility] Comment on above: Performed By: #### 2 33285 #### [facility],[address] [place] [address] 15866 Creatinine [Mass/Vol] 0.83 mg/dL Normal 0.55 - 1.02 [facility] Comment on above: Performed By: #### 2 48303 #### [facility],[address] [place] [address] 86110 GFR/1.73 sq M.predicted among non-blacks MDRD (S/P/Bld) [Vol rate/Area] mL/min/{1.73_m2} Normal 60 - 999 [facility] Comment on above: Performed By: #### 2 08948 #### [facility],[address] [place] [address] 79414 Result Comment: ACCO RDING TO THE NATIONAL KIDNEY DISEASE EDUCATION PROGRAM(NKDE), A NORMAL eGFR IS A VALUE GREATER THAN OR EQUAL TO 60 ML/MIN/1.73 SQ METERS. CHRONIC KIDNEY DISEASE: <60mL/MIN/1.73 SQ METERS KIDNEY FAILURE: <15mL/MIN/1.73 SQ METERS THIS TEST SHOULD ONLY BE USED FOR PATIENTS 18 YEARS OF AGE AND OLDER. Globulin (S) [Mass/Vol] 4.4 g/dL High 1.5 - 3.8 [facility] Comment on above: Performed By: #### 2 21399 #### [facility],[address] [place] [address] 99309 Glucose [Mass/Vol] 120 mg/dL High 74 - 106 [facility] Comment on above: Performed By: #### 2 28755 #### [facility],[address] [place] [address] 76212 Potassium [Moles/Vol] 4.3 mmol/L Normal 3.5 - 5.1 [facility] Comment on above: Performed By: #### 2 08830 #### [address] [address] Protein [Mass/Vol] 7.5 g/dL Normal 6.4 - 8.2 [facility] Comment on above: Performed By: #### 2 94539 #### [facility],[address] [place] [address] Sodium [Moles/Vol] 144 mmol/L Normal 136 - 145 [facility] Comment on above: Performed By: #### 2 47256 #### [place] [address] Urea nitrogen [Mass/Vol] 16 mg/dL Normal 7 - 18 [facility] Comment on above: Performed By: #### 2 39874 #### [place] [address] HEMOGLOBIN A1C (POM)on 05-11 Glucose [Mass/Vol] 134.1 mg/dL High 0.0 - 0.0 [facility] Comment on above: Result Comment: BLDo HEMOGLOBIN A1C REFERENCE RANGESBLDo Suggested Diagnosis HbA1c(%) HbA1C (mmol/mol Diabetic >/=6.5 >/=48 Prediabetes 5.7 - 6.4 39 - 47 Normal <5.7 <39 Performed By: #### 2 49182 #### [facility],[address] [place], [place] [id number] HbA1c (Bld) [Mass fraction] 6.3 % Normal 0.0 - 6.5 [facility] Comment on above: Performed By: #### 2 85638 #### [place] [id number] LIPID PROFILEon 05-11-2024 Cholesterol [Mass/Vol] 177 mg/dL Normal 0 - 240 [facility] Comment on above: Performed By: #### 2 86249 #### [facility],[address] [place] [address] 07585 Cholesterol in HDL [Mass/Vol] 65 mg/dL High 40 - 60 [facility] Comment on above: Performed By: #### 2 61744 #### [facility],[address] [place] [address] 03862 Cholesterol in LDL [Mass/Vol] 94 mg/dL Normal 0 - 129 [facility] Comment on above: Performed By: #### 2 63572 #### [facility],[address] [place] [address] 72958 Cholesterol.total/Cho lesterol in HDL [Mass ratio] 2.7 {ratio} Normal 0.0 - 5.0 [facility] Comment on above: Performed By: #### 2 94869 #### [facility],[address] [place] [address] 23596 Lipid 1996 panel Normal [facility] Comment on above: Result Comment: LIPI D PROFILE Performed By: #### 2 37403 #### [facility],[address] [place] [address] 76190 Triglyceride [Mass/Vol] 89 mg/dL Normal 0 - 150 [facility] Comment on above: Performed By: #### 2 92095 #### [facility],[address] [place] [address] 22699 TSHon 05-11-2024 TSH Qn 2.46 m[IU]/L Normal 0.35 - 3.74 [facility] Comment on above: Performed By: #### 2 61367 #### [facility],[address] [place] [address] 37499 VITAMIN B-12on 05-11-2024 Cobalamin (Vitamin B12) [Mass/Vol] 774 pg/mL Normal 193 - 986 [facility] Comment on above: Performed By: #### 2 04813 #### [facility],[address] [place] [address] 22351 VITAMIN D, 25 HYDROXYon 04-22 VitD 13.40 ng/mL Low 30.00 - 100 [facility] Comment on above: Result Comment: 25-O HD3 indicates both endogenous production and supplementation. 25-OHD2 is an indicator of exogenous sources, such as diet or supplementation. Therapy is based on measurement of Total 25-OHD, with levels <20 ng/mL indicative of Vitamin D deficiency, while levels between 20 ng/mL and 30 ng/mL suggest insufficiency. Optimal levels are >=30ng/mL. Vitamin D, 25-OH D3 Not Established Vitamin D, 25-OH D2 Not Established Performed By: #### 2 95750 #### [facility],[address] [place], [place] [id number] CNOVon 05-08-2024 CNOV Office Visit (NREUS2 ) OTILIADIONNA L ([id number]) 1950 F Date Time Provider Department 05/08/24 1:00 PM PIETER JOHNSTON NREUS2 During your visit today, we recorded the following information about you: Pieter Johnston PA-C 05/08/2024 2:40 PM Signed Referring physician: Dr. Lemon CC: tremor HPI: Dionna Bingham presents for the evaluation of her tremor. She reports tremor since childhood that has worsened over time. She is right handed and feels the tremor is a little worse on the left side. Her priority is for treatment on the right side. She feels the internal tremor is improved with meds. She denies a family history of tremor. She does not know if there is improvement with alcohol. She reports difficulties with pouring, cooking, eating, drinking, writing, and crocheting due to tremor. Past Surgical History: PAST SURGICAL HISTORY Procedure Laterality Date ARTHRP KNE CONDYLEANDPLATU MEDIALANDLAT COMPARTMENTS Right 2012 Knee replacement, total CATARACT EXTRACTION HX Bilateral 2019 CHOLECYSTECTOMY 1972 Cholecystectomy DANDC, DIAG AND/OR THERAPEUTIC 08/31/2021 Polypectomy DANDC- simple and complex with atypia REMOVAL OF OVARY/TUBE(S) 10/18/2021 TLH, UTERUS 250 G OR LES 10/18/2021 w/ sentinel lymph node mapping and dissection UNSPECIFIED ORAL SURGERY PROCEDURE, BY REPORT Past Medical History: PAST MEDICAL HISTORY Diagnosis Date Depression Endometrial cancer (HCC) Hypertension PONV (postoperative nausea and vomiting) Post-operative nausea and vomiting Sleep apnea + cpap Current Medications: Current Outpatient Medications Medication Sig escitalopram oxalate (LEXAPRO) 20 mg tablet Take 1 tablet by mouth once daily. propranolol (INDERAL) 20 mg tablet Take 1 tablet by mouth two times a day. losartan (COZAAR) 50 mg tablet Take by mouth once daily. No current facility-administered medications for this visit. Allergies: Primidone Social History: Social History Tobacco Use Smoking status: Never Smokeless tobacco: Never Vaping Use Vaping status: Never Used Substance Use Topics Alcohol use: Yes Comment: occasionally Drug use: No Family History: FAMILY HISTORY Problem Relation Age of Onset No Known Problems Father unknown history Breast Cancer Mother 80 other (macular degeneration) Mother No Known Problems Brother Cancer Brother due to exposure in No Known Problems Sister Uterine Cancer No Family History Ovarian cancer No Family History Prostate Cancer No Family History Colon Cancer No Family History REVIEW OF SYSTEMS: Constitutional: No recent fever or weight loss Skin: Reports psoriasis-usually right ear, elbow, stomach Eyes: Denies complaints of blurred vision and diplopia, Uses glasses and or contact lenses. History of cataract removal ENMT: Denies dysphagia. Does not use dentures. Reports hearing loss, tinnitus, dizziness Endocrine: Denies history of Type l or Type ll diabetes mellitus, Denies history of Thyroid disease CV: Denies history of chest pain, prior PA's, palpitations, heart failure, murmurs,, circulatory problems, leg swelling, hyperlipidemia. Reports HTN Respiratory: Denies history of paroxymal nocturnal dyspnea, recent cough, orthopnea, shortness of breath, COPD, emphysema, asthma, pneumonia, tuberculosis. Reports ETHEL Gastrointestinal: Denies history of nausea, vomiting, diarrhea, constipation, ulcers, heartburn, abdominal pain Genitourinary: Denies hematuria, dysuria, kidney disease. Reports some incontinence-stress Musculoskeletal: Denies complaint of arm / leg weakness, gout. Reports some unstable gait, arthritis Neurological: Denies history of syncope, memory changes, or disorientation Denies complaint of headache Denies complaint of diplopia or decreased visual acuity Denies complaint of arm / leg numbness Denies problem with limb coordination Denies history of seizures and strokes Denies loss of consciousness or other neurologic disease Psychiatric: Denies history of hallucinations, depression, substance abuse. Reports anxiety PHYSICAL EXAMINATION: Vitals: There were no vitals taken for this visit. Constitutional: Well developed, well nourished Skin: [place], warm, dry Head, Face, Neck: Normocephalic/atraumatic Eyes: Clear conjunctiva, non-icteric FOCUSED NEUROLOGIC EXAM Higher integrative function: Oriented to person, place and time, speech clear and fluent, fund of knowledge good CN II: Visual landry full to confrontation CN III, IV, : Pupils equal, round, full extraoccular movements, without nystagmus CN V: masseter 5/5 CN VII: Facial muscles symmetric and strong, No noted facial droop CN VIII: does not hear finger rub bilaterally CN IX: Gag reflex not tested CN X: Palate elevates symmetrically CN XI: Full strength shoulder shrug bilaterally CN XII: Tongue protru (more content not included)... [facility] CNOV Office Visit (NREUS2 ) DIONNA BINGHAM Lilia ([id number]) 1950 F Date Time Provider Department 05/08/24 11:00 AM SHANICE DESIR NREUS2 During your visit today, we recorded the following information about you: Pulse Blood pressure 62/minute 151/69 Shanice Desir APRN.[employer] 05/08/2024 12:59 PM Signed [facility] - DBS/HIFU VIDEO EVALUATION- ESSENTIAL TREMOR Meir Overton MD [address] [phone] Dear Meir Overton MD: I had the pleasure of seeing Ms. Bingham for follow-up today. As you know she is a 74 year old right-handed female with a history of tremor since all her life . Subjective Previous Plan-11/20/2023 Visit: Try cutting the propranolol dose in half for 2-3 weeks and see if the internal tremor is still manageable. - - Interval History: Interested in HIFU for right hand (dominant hand). Not interested in DBS because does not want to have traditional surgery with incisions. Has difficulty writing. Illegible. Has trouble measuring ingredients when cooking. Has trouble eating with utensils. Goals: Handwriting Carrying cup of water Cooking Movement Disorders Medications Schedule - as of the start of the visit: Medications propranolol 10 mg twice daily Lexapro 20 mg Prior Anti-Parkinson Therapies Carbidopa/Levodopa Selegiline Other Movement Disorder Prior Therapies Primidone, Propranolol, Topiramate Questionnaires: ALLERGIES Allergen Reactions Primidone Intolerance Current Outpatient Medications Medication Sig escitalopram oxalate (LEXAPRO) 20 mg tablet Take 1 tablet by mouth once daily. propranolol (INDERAL) 20 mg tablet Take 1 tablet by mouth two times a day. losartan (COZAAR) 50 mg tablet Take by mouth once daily. No current facility-administered medications for this visit. Objective Vital Signs: BP 151/69 (BP Site: Left Arm, BP Position: Sitting, BP Cuff Size: Large Adult) Pulse 62 SpO2 96% Orthostatic Vitals: None for this encounter No LMP recorded. Patient has had a hysterectomy. There is no height or weight on file to calculate BMI. General Physical Examination: She is accompanied by her child. General: Awake, alert, interactive, no acute distress, good nutritional status, normal development, well-kept woman. General Neurological Examination: Neurological Exam Movement Disorders Scales Performed: Lzoj-Rillef-Aqtxt Tremor Scale Medication OFF/ON OFF Time of Assessment 1115 Time of Last Medication 0630 (yesterday) Last Medication Taken DBS_Right N/A DBS_Left N/A Face Tremor At Rest: 1 - Slight. May be intermittent. Tongue Tremor At Rest: 0 - None. Posture Holdin - Slight. May be intermittent. Voice Tremor Action and Intention: 1 - Slight. May be intermittent. Head Tremor At Rest: 1 - Slight. May be intermittent. Posture Holdin - Slight. May be intermittent. RUE Tremor At Rest: 2 - Moderate amplitude. May be intermittent. Posture Holdin - Moderate amplitude. May be intermittent. Action and Intention: 3 - Marked amplitude. LUE Tremor At Rest: 1 - Slight. May be intermittent. Posture Holdin - Marked amplitude. Action and Intention: 3 - Marked amplitude. Trunk Tremor At Rest: 0 - None. Posture Holdin - None. RLE Tremor At Rest: 1 - Slight. May be intermittent. Posture Holdin - None. Action and Intention: 0 - None. LLE Tremor At Rest: 1 - Slight. May be intermittent. Posture Holdin - None Action and Intention: 0 - None. Tremor Exam Subscore: 21 Handwriting 3 - Marked abnormal. Illegible. Drawing Drawing A - Right 2 - Moderately tremulous or crosses lines frequently. Drawing A - Left 4 - Unable to complete drawing. Drawing B - Right 3 - Accomplishes the task with great difficulty. Many errors. Drawing B - Left 4 - Unable to complete drawing. Drawing C- Right 2 - Moderately tremulous or crosses lines frequently. Drawing C - Left 4 - Unable to complete drawing. Handwriting Subscore: 22 Pouring Right: 1 - More careful thatn a person without tremors, but no water is spilled. Left: 2 - Spills a small amount of water (up to 10% of the total amount). Pouring Subscore: 3 Speaking 0 - Normal. Feeding (non liquids) 2 - Moderately abnormal. Frequent spills of peas and similar foods. May bring head at least snf to meet food. Liquids to Mouth 2 - Moderately abnormal. Unable to use spoon, uses cup or glass. Hygiene 2 - Moderately abnormal. Able to do everythign, but with errors. Uses electric razor because of tremor. Dressing 2 - Moderately abnormal. Able to do everything, but with errors. Writing 3 - Markedly abnormal. Illegible. Working 2 - Able to do everything, but with errors. Poorer than ususal performance because of tremor. ADL Subscore: 13 TOTAL SCORE 59 Assessment and Plan: Assessment Ms. Bingham is a right (more content not included)... [facility] CT BRAIN WO IVCONon 05-08-20 CT BRAIN WO IVCON * * *Final Report* * * DATE OF EXAM: May 08 2024 2:36PM [facility] [place] [place] BRAIN WO IVCON / PROCEDURE REASON: Essential tremor * * * * Physician Interpretation * * * * EXAMINATION: CT BRAIN WO IVCON HISTORY: Essential tremor - HIFU evaluation TECHNIQUE: Axial high-resolution unenhanced CT head. M: [id number] CT Dose-Length Product (DLP): 615 mGy*cm CT Dose Reduction Employed: Automated exposure control (AEC) COMPARISON: None. RESULT: Acute change: No evidence of an acute intracranial process. Hemorrhage: No evidence of acute intracranial hemorrhage. Mass Lesion / Mass Effect: No evidence of an intracranial mass, extra-axial fluid collection, or significant localized mass effect. Chronic change: None apparent. Parenchyma: No significant parenchymal volume loss. Ventricles: Normal caliber and morphology. Other: Scattered mild paranasal sinus mucosal thickening. The calvarium, skull base, mastoids, orbits and extracranial soft tissues are unremarkable. Glove Presser (topogram) images: No additional findings. IMPRESSION: Examination performed for preoperative planning purposes. No acute intracranial process. [place]: ALONSO Transcribe Date/Time: May 08 2024 2:48P Dictated by : TERE CANTU MD This examination was interpreted and the report reviewed and electronically signed by: KENNY ROBISON MD on May 08 2024 3:27PM [facility] [id number] [facility] CT Head WO contraston 2023 IMPRESSION: Examination performed for preoperative planning purposes. No acute intracranial process. [place] Mason: [facility] Transcribe Date/Time: May 08 2024 2:48P Dictated by : TERE CANTU MD This examination was interpreted and the report reviewed and electronically signed by: KENNY ROBISON MD on May 08 2024 3:27PM [facility] DIVISION OF RADIOLOGY * * *Final Report* * * DATE OF EXAM: May 08 2024 2:36PM [facility] [place] BRAIN WO IVCON / PROCEDURE REASON: Essential tremor * * * * Physician Interpretation * * * * EXAMINATION: CT BRAIN WO IVCON HISTORY: Essential tremor - HIFU evaluation TECHNIQUE: Axial high-resolution unenhanced CT head. M: CTBWO_3 CT Dose-Length Product (DLP): 615 mGy*cm CT Dose Reduction Employed: Automated exposure control (AEC) COMPARISON: None. RESULT: Acute change: No evidence of an acute intracranial process. Hemorrhage: No evidence of acute intracranial hemorrhage. Mass Lesion / Mass Effect: No evidence of an intracranial mass, extra-axial fluid collection, or significant localized mass effect. Chronic change: None apparent. Parenchyma: No significant parenchymal volume loss. Ventricles: Normal caliber and morphology. Other: Scattered mild paranasal sinus mucosal thickening. The calvarium, skull base, mastoids, orbits and extracranial soft tissues are unremarkable. Glove Presser (topogram) images: No additional findings. DIVISION OF RADIOLOGY Provider, [facility] - 05/08/2024 * * *Final Report* * * DATE OF EXAM: May 08 2024 2:36PM [facility] [place] - CT BRAIN WO IVCON / PROCEDURE REASON: Essential tremor * * * * Physician Interpretation * * * * EXAMINATION: CT BRAIN WO IVCON HISTORY: Essential tremor - HIFU evaluation TECHNIQUE: Axial high-resolution unenhanced CT head. M: CTBWO_3 CT Dose-Length Product (DLP): 615 mGy*cm CT Dose Reduction Employed: Automated exposure control (AEC) COMPARISON: None. RESULT: Acute change: No evidence of an acute intracranial process. Hemorrhage: No evidence of acute intracranial hemorrhage. Mass Lesion / Mass Effect: No evidence of an intracranial mass, extra-axial fluid collection, or significant localized mass effect. Chronic change: None apparent. Parenchyma: No significant parenchymal volume loss. Ventricles: Normal caliber and morphology. Other: Scattered mild paranasal sinus mucosal thickening. The calvarium, skull base, mastoids, orbits and extracranial soft tissues are unremarkable. Glove Presser (topogram) images: No additional findings. IMPRESSION IMPRESSION: Examination performed for preoperative planning purposes. No acute intracranial process. [place] Mason: [facility] Transcribe Date/Time: May 08 2024 2:48P Dictated by : TERE CANTU MD This examination was interpreted and the report reviewed and electronically signed by: KENNY ROBISON MD on May 08 2024 3:27PM EST [facility] Radiology Study observation (narrative) [facility] CT Head WO contrastOrdered B y: [facility] Provider on 05-08-2024 [facility] CNOVon 03-04-2024 CNOV Office Visit (OBGYWM ) DIONNA BINGHAM ([id number]) 1950 F Date Time Provider Department 03/04/24 9:00 AM PARUL CHANDRA OBGYWGarth During your visit today, we recorded the following information about you: Blood pressure Weight 140/82 98.9 kg Parul Chandra MD 03/04/2024 9:12 AM Signed Marketing Operations Specialist offered: Patient declines. Dionna Bingham is a 74 year old female who presents for follow up pelvic exam for h/o Endometrial cancer. Per [facility] onc needs pelvic exam Q 6mo for next 5 yrs (until 2028) (Previously q3mo for first 2 yrs). Pt reports no vaginal bleeding, no pain, no changes in BMs or urinary habits. Pt offers no other concerns today. OB History T3 L3 SAB0 IAB0 Ectopic0 Multiple0 Live Births0 Comment: 3 vaginal deliveries Computator History LMP: Hysterectomy Age at Menarche: Age at First : Age at Menopause: Computator History Comments: Sexual Activity: Not Currently; No partner data on record Contraception: No contraception data on record PAST MEDICAL HISTORY No date: Depression No date: Endometrial cancer (HCC) No date: Hypertension No date: PONV (postoperative nausea and vomiting) No date: Post-operative nausea and vomiting No date: Sleep apnea Comment: + cpap PAST SURGICAL HISTORY 2013: ARTHRP KNE CONDYLEANDPLATU MEDIALANDLAT COMPARTMENTS; Right Comment: Knee replacement, total 2019: CATARACT EXTRACTION HX; Bilateral 1972: CHOLECYSTECTOMY Comment: Cholecystectomy 08/31/2021: DANDC, DIAG AND/OR THERAPEUTIC Comment: Polypectomy DANDC- simple and complex with atypia 10/18/2021: REMOVAL OF OVARY/TUBE(S) 10/18/2021: TLH, UTERUS 250 G OR LES Comment: w/ sentinel lymph node mapping and dissection No date: UNSPECIFIED ORAL SURGERY PROCEDURE, BY REPORT FAMILY HISTORY Problem Relation Age of Onset No Known Problems Father unknown history Breast Cancer Mother 80 other (macular degeneration) Mother No Known Problems Brother Cancer Brother due to exposure in No Known Problems Sister Uterine Cancer No Family History Ovarian cancer No Family History Prostate Cancer No Family History Colon Cancer No Family History Social History Tobacco Use Smoking status: Never Smokeless tobacco: Never Vaping Use Vaping Use: Never used Substance Use Topics Alcohol use: Yes Comment: occasionally Drug use: No Current Outpatient Medications Medication Sig escitalopram oxalate (LEXAPRO) 20 mg tablet Take 1 tablet by mouth once daily. propranolol (INDERAL) 20 mg tablet Take 1 tablet by mouth two times a day. losartan (COZAAR) 50 mg tablet Take by mouth once daily. No current facility-administered medications for this visit. Allergies As of Date: 03/04/2024 Allergen Noted Reaction PRIMIDONE 09/29/2021 Intolerance Fully Assessed 03/04/2024 REVIEW OF SYSTEMS Abdomen: No bloating, early satiety, indigestion, or increased flatulence. No abdominal pain, nausea, vomiting, diarrhea, or constipation. Bladder: no dysuira. .. Expanded ROS: GENERAL: Negative for fever Allergies and current medication updated:Yes EXAM: BP 140/82 Wt 218 lb (98.9kg) GENERAL: pleasant, female in no apparent distress HEENT: Normocephalic and atraumatic NECK: full range of motion DERMATOLOGY: Normal and without lesions ABDOMEN: soft, non-tender, and no masses PELVIC: external genitalia normal, normal Bartholin's glands, urethra, Geneseo's glands, no vulvar lesions, good vaginal support, physiologic discharge present, normal appearing perineal body and perianal region, cervix surgically absent, no masses at vaginal cuff BIMANUAL: no adnexal masses, non-tender, and no masses NEURO: alert and oriented x3,exam grossly non-focal EXTREMITIES: normal ASSESSMENT AND PLAN: Encounter Diagnosis ICD-10-CM 1. Endometrial cancer (HCC) C54.1 2. Pelvic exam Q6mo until 2028 I spent a total of 20 minutes on the date of the service which included preparing to see the patient, [id number] patient care, completing clinical documentation, obtaining and/or reviewing separately obtained history, performing a medically appropriate examination, and counseling and educating the patient/family/caregiver. Parul Bangura MD Allergies As of Date: 03/04/2024 Noted Allergy Reaction PRIMIDONE 09/29/2021 5 - Intolerance Date Reviewed: 03/04/2024 Reviewed by: Katherine Cortés MA - Fully Assessed Reason for Visit: Follow Up [171] Cmt: Pelvic exam Primary Visit Diagnosis:Endometrial cancer (HCC) [C54.1] Prescriptions as of 03/04/2024 - escitalopram oxalate (LEXAPRO) 20 mg tablet Take 1 tablet by mouth once daily. - propranolol (INDERAL) 20 mg tablet Take 1 tablet by mouth two times a day. - losartan (COZAAR) 50 mg tablet Take by mouth once daily. Problem List As Of Date 03/04/2024 Noted Resolved Essential tremor [G25.0] 07/17/2007 (more content not included)... [facility] BONE DENSITY STUDYon 024 Bone density scan [place] [id number] Patient: DIONNA BINGHAM Phone#: : 1950 Age: 73 Gender: F Pt. Type: Out Account: [id number] Location: [facility] Ordering: MEIR OVERTON Exam Date: 01/30/2024/12:55 Family Phys: Charge Code: [id number] Physician: [place] Order #: [id number] Dose#: PROCEDURE: BONE DENSITY STUDY TECHNIQUE: Lumbar vertebral and proximal femoral dual-energy X-ray absorptiometry (DXA) was performed on a central Control de Pacientes device. COMPARISON: [facility], BONE DENSITY STUDY, 05/10/2022, 11:33. SPINE ANALYSIS RESULTS: Average lumbar bone mineral density (BMD) (g/cm2): 1.443 Lumbar T-score (standard deviation relative to young adult mean BMD): 2.2 Lumbar Z-score (standard deviation relative to age matched control group): 2.7 Change since prior spine examination: Increased bone density consistent with therapeutic response. SPINE CLASSIFICATION: Normal (T-score > -1.0). HIP ANALYSIS RESULTS: Left femoral bone mineral density (BMD) (g/cm2): 1.091 Right femoral bone mineral density (BMD) (g/cm2): 1.166 Femur T-score (standard deviation relative to young adult mean BMD): 1.0 Femur Z-score (standard deviation relative to age matched control group): 1.7 Change since prior hip examination: No significant change. HIP CLASSIFICATION (World Health Organization): Normal (T-score > -1.0). Note: The 2007 International Society for Clinical Densitometry (ISCD) Official Positions state that osteoporosis in stas-menopausal and post-menopausal women and in men age 50 and older may be diagnosed if the T-score of the lumbar spine, total hip, or femoral neck is -2.5 or less. Hip BMD is reported from the femoral neck or total proximal femur whichever is lowest. In pre-menopausal women and in men younger than age 50, T-scores may be used but Z-scores are preferred. In this patient group, a Z-score of -2.0 or lower is defined as below the expected range for age. FRAX is a computer-based algorithm which uses easily obtained clinical risk factors combined with femoral neck BMD or T-score to estimate an individual 10-year fracture probability. FRAX with BMD predicts fracture risk better than clinical risk factors or BMD alone. It is not appropriate to use FRAX to monitor treatment response. ADDITIONAL FINDINGS: No significant additional findings. Continued Report - Page 2 of 2 Patient: DIONNA BINGHAM Phone#: : 1950 Age: 73 Gender: F Pt. Type: Out Account: [id number] Location: [facility] Ordering: MEIR OVERTON Exam Date: 01/30/2024/12:55 Family Phys: Charge Code: [id number] Physician: [place] Order #: [id number] Dose#: Ten year probability of major osteoporotic fracture 10.9%. Ten year probability of hip fracture 0.7%. Dictated by: Tabatha Castañeda MD on 01/30/2024 at 13:01 Approved by: Tabatha Castañeda MD on 01/30/2024 at 13:02 [facility] CNOVon 11-20-2023 CNOV Office Visit (NRMDN) DIONNA BINGHAM ([id number]) 1950 F Date Time Provider Department 11/20/23 1:30 PM SEBASTIEN LEMONN During your visit today, we recorded the following information about you: Pulse Blood pressure Weight Height 46/minute 171/78 101.3 kg 1.613 m Sebastien Lemon MD 11/20/2023 3:56 PM Signed [facility] - FOLLOW UP EVALUATION Meir Overton MD [address] [facility] [id number] Dear Meir Overton MD: I had the pleasure of seeing Ms. Bingham for follow-up today. As you know she is a 73 year old right-handed female with a history of tremor since all her life . She is seen with a daughter. Subjective Previous Plan-05/22/2023 Visit: Restart propranolol for the internal tremor - Let us know if you want to do the surgical evaluation. Information in the ultrasound procedure is below - Interval History: Propranolol helped the internal tremor. HR was 49 at PCP recently. No change recommended. Rare lightheadedness. Off balance in the morning but not lightheaded. Outside tremors still bother her. Given order for EMG to evaluate for CTS. Tingling right median nerve distribution. Movement Disorders Medications Schedule - as of the start of the visit: Medications propranolol 20 mg twice daily Lexapro 20 mg Prior Anti-Parkinson Therapies Carbidopa/Levodopa Selegiline Other Movement Disorder Prior Therapies Primidone, Propranolol, Topiramate Questionnaires: In addition, the following activities of daily living that may be affected by tremors were evaluated: Speaking: Affected (mild constant) Feeding: Affected (moderate) Bringing Liquids to Mouth: Affected (marked) Hygiene: Affected (mild) Dressing: Affected (mild) Writing: Affected (marked) Working: Affected (moderate) Number of falls in the Last Month: none Mood/Behavior Depression: PHQ-9 Score: 14 usually representing moderate (10-14) depression. Anxiety: Finally, the following table shows the patient's overall global physical and mental health using the PROMIS scale: PROMIS-10 Flowsheet Row Office Visit from 09/18/2022 in Neurology Office Visit from 05/15/2022 in Neurology Global Physical Health T Score 44.9 44.9 Global Mental Health T Score 33.8 36.3 0-10 Standard Pain Scale 5 4 *PROMIS-10 scoring scale: mean = 50, over 50 is above average, under 50 is below average ALLERGIES Allergen Reactions Primidone Intolerance Current Outpatient Medications Medication Sig escitalopram oxalate (LEXAPRO) 20 mg tablet Take 1 tablet by mouth once daily. propranolol (INDERAL) 20 mg tablet Take 1 tablet by mouth two times a day. losartan (COZAAR) 50 mg tablet Take by mouth once daily. No current facility-administered medications for this visit. Objective Vital Signs: BP 171/78 (BP Site: Left Arm, BP Position: Sitting, BP Cuff Size: Large Adult) Pulse (!) 46 Ht 161.3 cm (5' 3.5) Wt 101.3 kg (223 lb 5.2 oz) SpO2 96% BMI 38.94 kg/m? Orthostatic Vitals: None for this encounter Weight: 101.3 kg (223 lb 5.2 oz) Height: 161.3 cm (5' 3.5) No LMP recorded. Patient has had a hysterectomy. Body mass index is 38.94 kg/m?. General Physical Examination: General: Awake, alert, interactive, no acute distress, good nutritional status, normal development, well-kept General Neurological Examination: Neurological Exam Mental Status Awake and alert. Language is fluent with no aphasia. Movement Disorders Scales Performed: MDS-UPDRS Motor subscale condition of exam Medication Off/On/Naiive OFF Time of UPDRS Time of Last Medication 0630 Last Medication Taken Sinemet CR 50/200 DBS Right N/A DBS Left N/A MDS-UPDRS Motor subscale scores Speech 0-Normal. No speech problems. Facial Expression 0-Normal. Normal facial expression. Rigidity Neck 0-Normal. No rigidity. Rigidity Right Upper Extremity 0-Normal. No rigidity. Rigidity Left Upper Extremity 0-Normal. No rigidity. Rigidity Right Lower Extremity 0-Normal. No rigidity. Rigidity Left Lower Extremity 0-Normal. No rigidity. Finger Taps Right 0-Normal. No problems. ` Finger Taps Left 0-Normal. No problems. Hand Movements Right 0-Normal. No problem. Hand Movements Left 0-Normal. No problem. Arm Movements Right 0-Normal. No problems. Arm Movements Left 0-Normal. No problems. Toe Taps Right 0-Normal. No problem. Toe Taps Left 0-Normal. No problem. Leg Agility Right 0-Normal. No problems. Leg Agility Left 0-Normal. No problems. Arise From Chair 0-Normal. No problems. Able to arise quickly without hesitation. Gait 0-Normal. No problems. Gait Freezing 0-Normal. No freezing. Posture Stability 0-Normal. No problems: recovers with one or two steps. Posture 0-Normal. No problems. Body Bradykinesia 0-Normal. No problems. Postural Tremor Hand Right 0-Normal. No tremor. Postural Tremor Hand (more content not included)... [facility] ANTONELLA SCREENING W [facility] 05-17 [facility] UA DIP, URINE (POC)on 2022 BILIRUBIN UA (POCT) Negative Negative [facility] CLARITY UA (POCT) Clear [facility] COLOR UA (POCT) Yellow [facility] GLUCOSE UA (POCT) Negative Negative mg/dL [facility] HEMOGLOBIN/BLOOD UA (POCT) Trace-intact Abnormal Negative [facility] KETONE UA (POCT) Negative Negative mg/dL [facility] LEUKOCYTES UA (POCT) Negative Negative [facility] NITRITE UA (POCT) Negative Negative [facility] PH UA (POCT) 6.0 4.5 - 8.0 [facility] Protein Ql (U) Negative Negative mg/dL [facility] SPECIFIC GRAVITY UA (POCT) 1.015 1.005 - 1.030 [facility] UROBILINOGEN UA (POCT) 0.2 E.U./dL Normal E.U./dL [facility] CN[facility] 12-01-2021 [facility] ([id number]) 1950 F Date Time Provider Department 12/01/21 10:00 AM NINI VILLEDA During your visit today, we recorded the following information about you: NiniADIN Resendiz 12/01/2021 11:07 AM Signed [facility] Consultation Note Genetic Counselor: Nini Villeda MS, [facility] [place]: Dionna Bingham Patient Name and confirmed at initiation of visit HIGH LEVEL SUMMARY: ? 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 ? The patient provided informed consent for Custom Cancer Panel through [employer]. Results are expected in 2-3 weeks. IDENTIFICATION AND CHIEF COMPLAINT: Dr. Jennifer Jensen requested a consultation for genetic counseling and risk assessment for Dionna Bingham, a 71 year old female, for discussion of her recent diagnosis of endometrial cancer. She presents to clinic today to discuss the possibility of a genetic predisposition to cancer, and to further clarify her risks, as well as her family members' risks for cancer. 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 This was treated with TLH-BSO. As part of universal screening for Falcon Syndrome, the patient's tumor was tested for mismatch repair protein expression. 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 PAST MEDICAL HISTORY Diagnosis Date - Depression - Endometrial cancer (HCC) - Hypertension - Parkinson's disease (HCC) - PONV (postoperative nausea and vomiting) - Post-operative nausea and vomiting - Sleep apnea + cpap PAST SURGICAL HISTORY Procedure Laterality Date - ARTHRP KNE CONDYLEANDPLATU MEDIALANDLAT COMPARTMENTS Right 2013 Knee replacement, total - CATARACT EXTRACTION HX Bilateral 2019 - CHOLECYSTECTOMY 1971 Cholecystectomy - DANDC, DIAG AND/OR THERAPEUTIC 08/31/2021 Polypectomy DANDC- simple and complex with atypia - REMOVAL OF OVARY/TUBE(S) 10/18/2021 - TLH, UTERUS 250 G OR LES 10/18/2021 w/ sentinel lymph node mapping and dissection - UNSPECIFIED ORAL SURGERY PROCEDURE, BY REPORT CANCER SURVEILLANCE HISTORY: Mammograms: Yes / regular Breast MRI's: No Breast Biopsies: No Colonoscopy: Yes EGD: No GI Polyps: No Dermatology: Yes / psoriasis and had full body exam SOCIAL HISTORY: Social History Tobacco Use - Smoking status: Never Smoker - Smokeless tobacco: Never Used Vaping Use - Vaping Use: Never used Substance Use Topics - Alcohol use: Yes Comment: occasionally - Drug use: No FAMILY HISTORY: We obtained a detailed, 4-generation family history. Significant diagnoses are listed below: FAMILY HISTORY Problem Relation Age of Onset - Breast Cancer Mother 80 - No Known Problems Father - No Known Problems Sister - No Known Problems Brother - Cancer Brother due to exposure in - Uterine Cancer No Family History - Ovarian cancer No Family History - Prostate Cancer No Family History - Colon Cancer No Family History A copy of the patient's pedigree will be available under the scanned documents tab following today's visit. GENETIC COUNSELING RISK ASSESSMENT, DISCUSSION, AND SUGGESTED FOLLOW UP: We reviewed the natural history and genetic etiology of sporadic, familial and hereditary cancer syndromes. 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 We discussed that identification of a hereditary cancer syndrome may help her care providers tailor her medical management. If a mutation is detected, the National Comprehensive Cancer Network and/or expert opinion recommendations could include increased cancer surveillance options. If a mutation is detected, the patient will be referred back to the referring provider and to any additional appropriate care providers to discuss the relevant options. Inheritance of hereditary cancer syndromes was discussed with the patient. If a mutation is not found in the patient, this will decrease the likelihood of a hereditary cancer syndrome as the explanation for the patient's recent diagnosis of endometrial cancer. However, it cannot completely rule out this possibility. Cancer surveillance options would be discussed for the patient according to the appropriate standard National Comprehensive Cancer Network and [place] [employer] guidelines, with consideration of their personal and family history risk factors. In this case, the patient will be referred back to their care providers for discussions of management. Base (more content not included)... [facility] 11-15-2021 SANDOVAL Telephone (BUDDY Dunn) DIONNA BINGHAM ([id number]) 1950 F Date Time Provider Department 11/15/21 JENNIFER JENSEN During your visit today, we recorded the following information about you: Jennifer Jensen MD 11/15/2021 11:12 AM Signed Called re MMR. Equivocal PMS2. I suspect likely lab/sampling issue rather than germline mutation. However, will refer to genetics to discuss paired testing for confirmation. Jennifer Jensen MD, MPH Gynecologic Oncologist Allergies As of Date: 11/15/2021 Noted Allergy Reaction PRIMIDONE 09/29/2021 5 - Intolerance Date Reviewed: 11/02/2021 Reviewed by: Yolie Santizo RN - Fully Assessed Reason for Visit: Results [95] Primary Visit Diagnosis:Endometrial cancer (HCC) [C54.1] Order(s):CONSULT TO MEDICAL GENETICS - CANCER [[id number]] Order #: [id number]: 1 FUTURE Prescriptions as of 11/15/2021 - Feb Betamethasone Dipropionate (DIPROLENE) 0.05 % ointment Apply to affected area as needed. - selegiline (ELDEPRYL) 5 mg tablet Take 5 mg by mouth twice daily with meals. - losartan (COZAAR) 50 mg tablet Take by mouth once daily. - carbidopa-levodopa CR (SINEMET CR) 50-200 mg per tablet Take 1 tablet by mouth three times daily. Problem List As Of Date 11/15/2021 Noted Resolved Essential and other specified forms of tremor [*07/17/2007 10/02/2021 Essential (primary) hypertension [I10] 04/08/2018 Parkinson's disease (HCC) [G20] 07/16/2018 EIN (endometrial intraepithelial neoplasia) [N8*10/02/2021 Endometrial cancer (HCC) [C54.1] 10/17/2021 Encounter Status:Closed by JENNIFER JENSEN on 11/15/21 [facility] CNOVSPon 11-02-2021 CNOVSP Visit (SP) Office (SHO) OTILIADIONNA ([id number]) 1950 F Date Time Provider Department 11/02/21 2:30 PM JENNIFER JENSEN During your visit today, we recorded the following information about you: Temperature Pulse Blood pressure Weight 98.8 degrees 76/minute 150/81 95.3 kg Height 1.613 m Jennifer Jensen MD 11/02/2021 2:23 PM Signed Gynecologic Oncology Note [facility] Chief complaint: Post-op HPI: This is a 71 year old with stage IA FIGO grade 1 EAC of the uterus here for her post-operative visit. Doing very well. Had some reflux on pain meds but much better now that she is off. Feels a pulling sensation occasionally up by ribs but it is not severe. NO N/V/C/D. No bleeding or discharge. No fevers. Oncology History Endometrial cancer (HCC) 10/17/2021 Initial Diagnosis TLH/BSO/sentinel lymph node mapping, cystoscopy. FIGO grade 1 EAC, no myovasion, no cervical stromal involvement, no LVSI. 0/1 positive SLN. Non-mapping of left --> intraoperative frozen section sent. ROS: 14 point ROS negative unless indicated in above HPI. Medical history: PAST MEDICAL HISTORY Diagnosis Date - Depression - Endometrial cancer (HCC) - Hypertension - Parkinson's disease (HCC) - PONV (postoperative nausea and vomiting) - Post-operative nausea and vomiting - Sleep apnea + cpap Surgical history: PAST SURGICAL HISTORY Procedure Laterality Date - ARTHRP KNE CONDYLEANDPLATU MEDIALANDLAT COMPARTMENTS Right 2013 Knee replacement, total - CATARACT EXTRACTION HX Bilateral 2019 - CHOLECYSTECTOMY 1972 Cholecystectomy - DANDC, DIAG AND/OR THERAPEUTIC 08/31/2021 Polypectomy DANDC- simple and complex with atypia - REMOVAL OF OVARY/TUBE(S) 10/18/2021 - TLH, UTERUS 250 G OR LES 10/18/2021 w/ sentinel lymph node mapping and dissection - UNSPECIFIED ORAL SURGERY PROCEDURE, BY REPORT [facility] [facility] history: (). Menopause early to mid 50s. No h/o of abnormal Pap smears. Family history: Family History Problem Relation Age of Onset - Breast Cancer Mother 80 - No Known Problems Father - No Known Problems Sister - No Known Problems Brother - Cancer Brother due to exposure in - Uterine Cancer No Family History - Ovarian cancer No Family History - Prostate Cancer No Family History - Colon Cancer No Family History Social history: Social History Tobacco Use - Smoking status: Never Smoker - Smokeless tobacco: Never Used Vaping Use - Vaping Use: Never used Substance Use Topics - Alcohol use: Yes Comment: occasionally - Drug use: No Medications: Current Outpatient Medications Medication Sig Dispense Refill - acetaminophen (TYLENOL) 325 mg tablet Take 2 tablets by mouth every 6 hours as needed for pain. 60 tablet 1 - ibuprofen (MOTRIN) 600 mg tablet Take 1 tablet by mouth every 6 hours as needed for pain. 30 tablet 1 - oxyCODONE IR (ROXICODONE) 5 mg immediate release tablet Take 1 tablet by mouth every 6 hours as needed for pain. 20 tablet 0 - ondansetron (ZOFRAN) 4 mg tablet Take 1 tablet by mouth every 8 hours as needed for nausea/vomiting. 30 tablet 0 - Aug Betamethasone Dipropionate (DIPROLENE) 0.05 % ointment Apply to affected area as needed. - selegiline (ELDEPRYL) 5 mg tablet Take 5 mg by mouth twice daily with meals. - losartan (COZAAR) 50 mg tablet Take by mouth once daily. 3 - carbidopa-levodopa CR (SINEMET CR) 50-200 mg per tablet Take 1 tablet by mouth three times daily. 6 No current facility-administered medications for this visit. Healthcare maintenance: Colonoscopy: Reports up to date Mammogram: Reports up to date Pap smear: See HPI PE: EGOG PS 1 BP 150/81 (BP Site: Left Arm, BP Position: Sitting, BP Cuff Size: Large Adult) Pulse 76 Temp 37.1 ?C (98.8 ?F) (Temporal) Ht 161.3 cm (5' 3.5) Wt 95.3 kg (210 lb) SpO2 97% BMI 36.62 kg/m? Gen: well-appearing, NAD Abd: obese, soft, NTTP, tegederms removed from port sites - incisions c/d/i, no separation, no redness, healing well Pelvic: deferred Labs/Imaging: A. Uterus, cervix, bilateral fallopian tubes and bilateral ovaries, hysterectomy and bilateral salpingo-oophorectomy: Cervix: ?Nabothian cysts, negative for neoplasm. Lower uterine segment: ?Negative for neoplasm. Endometrium: ?Endometrial adenocarcinoma, endometrioid type, FIGO grade 1. ?Background of endometrial hyperplasia with atypia. ?Tumor is confined to the endometrium. ?Please see comment and synoptic report. Myometrium: ?Leiomyomata (1.5 cm in greatest dimension, intramural). ?Adenomyosis. ?Negative for involvement by carcinoma. Serosa: ?Fibrous adhesions. ?Negative for neoplasm. Right and left fallopian tubes: ?Unremarkable fallopian tubes. Right and left ovaries: ?Unremarkable ovaries. B. [place] lymph node, left pelvic, (more content not included)... [facility] ANES POSTPROC EVALon 022 ANES POSTPROC EVAL HNO ID: [id number] Author: Yunior Upton MD Service: ? Author Type: Physician Type: Anesthesia Postprocedure Evaluation Filed: 10/19/2021 8:25 AM Note Text: POST ANESTHESIA EVALUATION NOTE : 1950 Procedure Summary Date: 10/18/21 Room / Location: [facility] OR / [facility] OR Anesthesia Start: 0837 Anesthesia Stop: 1219 Procedures: EXAM UNDER ANESTHESIA PELVIC / VAGINAL (N/A Pelvis) CYSTOSCOPY (N/A Abdomen) LAPAROSCOPIC HYSTERECTOMY TOTAL FOR UTERUS 250 G OR LESS W/REMOVAL TUBE(S) AND/OR OVARY(S) (Bilateral Abdomen) LAPAROSCOPY SURGICAL W/RETROPERITONEAL LYMPH NODE SAMPLING SINGLE OR MULTIPLE (N/A ) Diagnosis: Endometrial intraepithelial neoplasia (EIN) Surgeons: Jennifer Jensen MD Responsible Provider: Yunior Upton MD Anesthesia Type: general ASA Status: 3 Anesthesia Type: general Airway Type: ETT Last Vitals Vitals Value Taken Time BP 125/78 10/18/21 1645 Temp 36.6 ?C (97.9 ?F) 10/18/21 1602 HR SpO2 87 10/18/21 1645 Resp 18 10/18/21 1645 SpO2 96 % 10/18/21 1645 Post Anesthesia Patient Status Patient Evaluation: PACU. PACU/ICU Patient Condition: stable. Anticipated Disposition: phase 2 then home. Neurological Status: aware and responsive. Pulmonary Status: breathing comfortably on room air Airway Control: returned to baseline unsupported. Cardiovascular Status: stable. Pain Management: clinically adequate Postoperative Hydration: acceptable. Intraoperative Events: no significant anesthesia events Post Operative Nausea/Vomiting Status: no significant post operative nausea or vomiting Anesthetic Observations: Recommendation: continue current plan of care. Anesthesia Observations No Documentation SIGNATURE: Yunior Upton MD PATIENT NAME: Dionna Bingham DATE: October 19, 2021 TIME: 8:24 AM CSN: [id number] [facility] ANES PRE-OPon 10-18-2021 ANES PRE-OP HNO ID: [id number] Author: Yunior Upton MD Service: ? Author Type: Physician Type: Anesthesia Preprocedure Evaluation Filed: 10/18/2021 8:01 AM Note Text: ANESTHESIOLOGY DAY OF SURGERY NOTE : 1950 Procedure Information Date/Time: 10/18/21829 Procedures: EXAM UNDER ANESTHESIA PELVIC / VAGINAL (N/A Pelvis) CYSTOSCOPY (N/A Abdomen) LAPAROSCOPIC HYSTERECTOMY TOTAL FOR UTERUS 250 G OR LESS W/REMOVAL TUBE(S) AND/OR OVARY(S) (Bilateral Abdomen) TRANSFUSION BLOOD (N/A Abdomen) LAPAROSCOPY SURGICAL W/RETROPERITONEAL LYMPH NODE SAMPLING SINGLE OR MULTIPLE (N/A ) Location: [facility] OR / [facility] OR Surgeons: Jennifer Jensen MD Estimated body mass index is 36.56 kg/m? as calculated from the following: Height as of 10/11/21: 162.6 cm (5' 4). Weight as of 10/11/21: 96.6 kg (213 lb). Most recent hematocrit and potassium results: Hematocrit 42.9 10/11/2021 Potassium 4.6 10/11/2021 Relevant Problems CARDIO (+) Essential (primary) hypertension I - PHYSICAL EVALUATION AIRWAY Patient intubated: No. Tracheostomy tube not present Mallampati: II. TM distance: >3 FB. Neck ROM: full ROM without neurological symptoms. Mouth opening: adequate. Short neck: no. Thick neck: no DENTAL Normal dental observations. Additional exam findings: no II - ANESTHESIA PLAN ASA Score: 3 Anesthetic Plan: general Airway type: ETT NPO Status: adequate Monitoring plan: standard ASA. Postoperative analgesic plan: parenteral or oral opioids. Patient / Surrogate agrees to blood products: Yes Significant changes in the patient condition since the History and Physical, not otherwise documented in primary service progress note: no. Potential Anesthesia issues that may suggest increased risk of complications or contraindication to planned procedure: none. Vitals Value Taken Time BP 146/65 10/18/21 0755 Pulse 66 10/18/21 0755 Resp 18 10/18/21754 Temp 36.8 ?C (98.2 ?F) 10/18/21 075 SpO2 96 % 10/18/21754 No current facility-administered medications on file as of 10/18/2021. Outpatient Medications as of 10/18/2021 Medication Sig - Aug Betamethasone Dipropionate (DIPROLENE) 0.05 % ointment Apply to affected area as needed. - selegiline (ELDEPRYL) 5 mg tablet Take 5 mg by mouth twice daily with meals. - losartan (COZAAR) 50 mg tablet Take by mouth once daily. - carbidopa-levodopa CR (SINEMET CR) 50-200 mg per tablet Take 1 tablet by mouth three times daily. I have interviewed and examined the patient. I have reviewed the medical record and/or the pre-anesthesia evaluation, pertinent labs, and test results. This contains updated information obtained within 48 hours of Surgery/Procedure. SIGNATURE: Yunior Upton MD PATIENT NAME: Dionna Bingham DATE: October 18, 2021 TIME: 8:00 AM CSN: [id number] [facility] BRIEF OP NOTon 10-18-2021 BRIEF OP NOT HNO ID: [id number] Author: Rivas Flores DO Service: Gynecology Oncology Author Type: Resident Type: Brief Op Note Filed: 10/18/2021 12:26 PM Note Text: BRIEF OPERATIVE / PROCEDURE NOTE LOG ID: [id number] SURGERY/PROCEDURE DATE: 10/18/2021 INCISION/PROCEDURE START TIME: 9:07 AM INCISION CLOSE/PROCEDURE END TIME: 12:05 PM SURGEON(S)/PROCEDURALIST(S) AND ESL PROFESSOR(S): Surgeon(s) and Role: * Jennifer Jensen MD - Primary * Rivas Flores DO - Resident - Assisting * Reshma Brown DO - Resident - Assisting No Additional Staff SURGERY/PROCEDURE(S): Exam under anesthesia, total laparoscopic hysterectomy, bilateral salpingo-oophorectomy, sentinel lymph node mapping with left dissection, cystoscopy ANESTHESIA: General FINDINGS: Enlarged globular uterus, approximately 10cm; frozen section without evidence of myometrial invasion Normal cervix Left adnexa adherent to left pelvic sidewall Right fallopian tube adherent to posterior uterus Right ovary: Normal Filmy adhesions from sigmoid colon to posterior uterus Uterosacral ligaments: fibrotic overlying peritoneum Left external iliac sentinel lymph node Right sentinel lymph node did not map with ICG Omental adhesions to right upper quadrant No evidence of extrauterine disease UOP: 150 mLs clear yellow urine IVF: 1800 mLs crystalloid ESTIMATED BLOOD LOSS: 75 mls SPECIMENS: ID Type Source Tests Collected by Time A : left pelvic sentinal lymph node Tissue LYMPH NODE SURGICAL PATHOLOGY Jennifer Jensen MD 10/18/2021 9:43 AM B : UTERUS, CERVIX, BILATERAL FALLOPIAN TUBES, BILATERAL OVARIES, ENDOMETRIUM (FROZEN) Tissue UTERUS, CERVIX, BILATERAL FALLOPIAN TUBES AND BILATERAL OVARIES SURGICAL PATHOLOGY Jennifer Jensen MD 10/18/2021 10:11 AM COMPLICATIONS: None PRE-OP/PRE-PROCEDURE DIAGNOSIS: FIGO 1 endometrial adenocarcinoma POST-OP/POST-PROCEDURE DIAGNOSIS: Same as Preop SIGNATURE: Rivas Flores DO PATIENT NAME: Dionna Bingham DATE: October 18, 2021 TIME: 12:21 PM [facility] NURSING PROGon 10-18-2021 NURSING PROG HNO ID: [id number] Author: Rachele Woodruff RN Service: Family Practice Author Type: Registered Nurse Type: Nursing Progress Note Filed: 10/18/2021 3:17 PM Note Text: Patient back form bathroom. States states that nausea is coming and going. States that she needs a little more time prior to taking pain pill [facility] NURSING PROG HNO ID: [id number] Author: Chirag English RN Service: ? Author Type: Registered Nurse Type: Nursing Progress Note Filed: 10/18/2021 2:40 PM Note Text: The pt is now attempting to void on the bedpan. 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 Mobile, globular uterus 10-12 weeks in size. 2) Upper abdomen with moderately dense omental adhesions to midline. Otherwise upper abdomen grossly normal. 3) Normal appearing adnexa however left stuck to broad ligament and right fallopian tube adherent to posterior uterus. 4) Sigmoid adhesions to left pelvic side wall 5) Left pelvic sentinel lymph node mapping to external iliac vein. No right sentinel node mapped - clear channel but no evidence of node despite opening up spaces and tracing to distal common. 6) Intact and hemostatic vaginal cuff. Rectum free of sutures. 7) Intact bladder with suture, brisk efflux from bilateral ureteral orifices EBL: 75 cc UOP: 150 cc COMPLICATIONS: None INDICATIONS FOR PROCEDURE: This is a 71 yo referred for EIN - pathology slides reviewed at [facility] consistent with grade 1 endometrioid adenocarcinoma arising in a background of EIN. We discussed treatment options and decided to proceed with definitive surgery. SURGERY DETAILS: Huddle was performed in preop. She received heparin. She was taken to the OR, where general anesthesia was found to be adequate. She was placed in dorsal lithotomy position and arms carefully tucked at her sides. She was prepped and draped in the usual sterile fashion. Ancef was given. OG was placed. Hanna was placed. A 5 mm incision was made at Pradhan's point and Veress needle introduced with opening pressure of 6. Once a pressure of 15 was reached, 5 mm trocar was used using Optiview technique. Abdominal survey was performed with findings as noted above. Two additional 5 mm ports were placed in bilateral lower quadrants. Next, speculum was inserted and 4 cc of ICG was injected at 3 and 9 oclock, at depths of 1cm and 1-2 mm. Large Vcare was placed. A 10 mm suprapubic port was placed as well. We then took the left round ligament and opened up the retropertineoum. It was somewhat scarred and friable consistent with a possible prior infection. Ureter was identified. With the AIM scope, we visualized a sentinel lymph node along side the external iliac vein. This was removed with sharp and blunt dissection and removed for permanent. Left IP was coagulated and cut. We then performed the same procedure on the right. We were able to see a channel but no lymph node despite opening up paravesical, pararectal spaces and tracing internal iliac and proximal along common iliac vessels. We re-identified the ureter and coagulated and cut the right IP. The vesicouterine peritoneum was incised and bladder flap developed past the ring. The left and then right uterine arteries were coagulated, cut, and lateralized with Ligasure. Colpotomy was made and specimen removed via the vagina. Uterus was sent for frozen section. The vaginal cuff was closed with 0-V lock in a two layer closure. Bimanual exam confirmed an intact cuff. Rectal exam confirmed no suture in the vagina. Irrigation was performed. Raw edge of peritoneum on the left pelvic side wall was coagulated. All vascular pedicles were inspected and hemostatic. Pneumoperitoneum was allowed to escape. Hanna was removed and cystoscopy performed with findings as noted above. CO2 insuffulation restarted and good hemostasis was appreciated. Surgicel tape was laid over cuff and raw peritoneum and Mai placed over dissection beds. 10 mm suprapubic port had fascia closure with Iván Kessler and 0-Vicryl suture. 4-0 Monocryl used to close ports. Patient was extubated and taken to PACU in good condition. Counts were correct x 2. A digital sweep of the vaginal canal was performed by Dr. Brown and it was ascertained that no instruments or other foreign bodies are retained within the cavity. PARTICIPATION IN SURGERY/PROCEDURE: I/primary surgeon/proceduralist performed the procedure with assistance. Jennifer Jensen MD, MPH Gynecologic Oncologist SIGNATURE: Jennifer Jensen MD PATIENT NAME: Dionna Bingham DATE: October 18, 2021 TIME: 2:36 PM [facility] SURGICAL PATHOLOGYon 022 ADDENDUM 1: [facility] Comment on above: Order Comment: Speci men Type: TISSUE SPECIMEN Ordering Facility: [facility] Address: [address] [place] [address] [place] [id number] Result Comment: This addendum is being performed to report the results of mismatch repair (MMR) and p53 immunohistochemistry as indicated in the original report. Immunohistochemical stains for p53, MLH1, PMS2, MSH6 and MSH2 were preformed at the [facility] and interpreted at [facility]. The results are reported below. The p53 immunostain shows wild-type staining. MMR Status Report - Immunohistochemistry Mismatch repair (MMR) interpretation: Indeterminate (See comment) Results Mismatch Repair Protein Immunohistochemistry Results: MLH1: Normal/Intact Nuclear Expression PMS2: Equivocal MSH2: Normal/Intact Nuclear Expression MSH6: Normal/Intact Nuclear Expression Tissue Analyzed: Endometrium Block evaluated: A10 MLH1 promoter methylation assay ordered: No Comment: Immunohistochemical stains for mismatch repair proteins were performed and show indeterminate expression of PMS2 in carcinoma nuclei with retained expression of MLH1, MSH2 and MSH6. Controls were appropriately positive for each immunohistochemical stain. Loss of protein expression for any of the mismatch repair genes helps to identify the causative gene for the MSI-H phenotype and makes further mutation testing more efficient, if indicated following genetic counseling. Immunohistochemical results are not definitive evidence of germline versus a tumor-acquired alteration with many tumors previously considered to be highly suggestive of Falcon syndrome based on molecular and/or immunohistochemical analyses, arise due to tumor-acquired mutations rather than germline mutations. In a phase 2 study of patients with metastatic carcinoma, Stephanie et al (NEJ 2015;372:2509-20) reported that clinical benefit of pembrolizumab, an anti-programmed 1 (PD-1) immune checkpoint inhibitor, was predicted by the tumor's mismatch repair status; mismatch repair deficient (dMMR) tumors are more responsive to PD-1 blockade than mismatch repair proficient tumors. Pembrolizumab is FDA-approved for the treatment of adult and pediatric patients with unresectable or metastatic solid tumors that display microsatellite instability-high (MSI-H) by PCR assay or dMMR by immunohistochemistry (IHC). The FDA does not distinguish between PCR and IHC-based assays, as these are considered equivalent and complimentary tests. As clinically indicated, and in the appropriate setting of genetic counseling with informed patient consent, further genetic testing may be helpful. For more information or questions about this result, please call the [facility] at . Methods: Immunohistochemistry was performed on formalin fixed paraffin-embedded tissue using the following clones: MLH1 (clone M1 mouse monoclonal); PMS2 (A16-4 mouse monoclonal); MSH2 ([id number] mouse monoclonal); and MSH6 (SP93 rabbit monoclonal); followed by ultrasensitive bright field detection (Optiview with amplification) from [[employer]]. Laboratory Developed Test (LDT) Disclaimer: Performance characteristics of immunohistochemical, immunofluorescent and chromogenic in-situ hybridization tests have been determined by the performing laboratory within [facility]???s Demarcus Arce [facility]ology and [facility] [place] ([facility] [place], [facility], [facility] or [facility]) in a manner consistent with CLIA requirements. One or more of these tests have not been cleared or approved by the FDA. [facility] is regulated under CLIA as qualified to perform high-complexity testing. These tests are used for clinical purposes. They should not be regarded as investigational or for research. Positive and negative controls stain appropriately. The diagnostic interpretation was performed at [facility], [address] [place] [address] CLIA# [id number] Addendum electronically signed by Ruben Araujo MD on 11/14/2021 at 2:14 PM Performed By: #### S #### [facility] CLIA [id number] [address] [place] [address] [place] CASE REPORT [facility] Comment on above: Order Comment: Speci men Type: TISSUE SPECIMEN Ordering Facility: [facility] Address: [address] [place] [phone] Result Comment: Surg ica Pathology Report Case: [id number] Authorizing Provider: Jennifer Jensen MD Collected: 10/18/2021 09:43 AM Ordering Location: [facility] Received: 10/18/2021 01:13 PM Pathologist: Ruben Araujo MD Specimens: A) - UTERUS, CERVIX, BILATERAL FALLOPIAN TUBES AND BILATERAL OVARIES, UTERUS, CERVIX, BILATERAL FALLOPIAN TUBES, BILATERAL OVARIES, ENDOMETRIUM (FROZEN) B) - LYMPH NODE, left pelvic sentinal lymph node Performed By: #### S #### [facility] CLIA [id number] [address] DIAGNOSIS COMMENT [facility] Comment on above: Order Comment: Speci men Type: TISSUE SPECIMEN Ordering Facility: [facility] Address: [address] [place] [address] Result Comment: A. I mmunohistochemical staining for P53 and mismatch repair proteins will be performed and reported in an addendum. B. The sentinel lymph node was examined using the sentinel lymph node protocol including deeper H&E sections and 2 cytokeratin AE1/3 immunostains which are negative. Laboratory Developed Test (LDT) Disclaimer: Performance characteristics of immunohistochemical, immunofluorescent and chromogenic in-situ hybridization tests have been determined by the performing laboratory within [facility] Demarcus Claude [facility] [place] ([facility] [place], [facility], [facility] or [facility]) in a manner consistent with CLIA requirements. One or more of these tests have not been cleared or approved by the FDA. [facility] is regulated under CLIA as qualified to perform high-complexity testing. These tests are used for clinical purposes. They should not be regarded as investigational or for research. Positive and negative controls stain appropriately. Performed By: #### S #### [facility] CLIA [id number] [address] FINAL DIAGNOSIS [facility] Comment on above: Order Comment: Speci men Type: TISSUE SPECIMEN Ordering Facility: [facility] Address: [address] [place] [id number] Result Comment: A. U terus, cervix, bilateral fallopian tubes and bilateral ovaries, hysterectomy and bilateral salpingo-oophorectomy: Cervix: -Nabothian cysts, negative for neoplasm. Lower uterine segment: -Negative for neoplasm. Endometrium: -Endometrial adenocarcinoma, endometrioid type, FIGO grade 1. -Background of endometrial hyperplasia with atypia. -Tumor is confined to the endometrium. -Please see comment and synoptic report. Myometrium: -Leiomyomata (1.5 cm in greatest dimension, intramural). -Adenomyosis. -Negative for involvement by carcinoma. Serosa: -Fibrous adhesions. -Negative for neoplasm. Right and left fallopian tubes: -Unremarkable fallopian tubes. Right and left ovaries: -Unremarkable ovaries. B. [place] lymph node, left pelvic, excision: -1 lymph node, negative for neoplasm (0/1). See comment. Performed By: #### S #### [facility] CLIA [id number] [address] [place] [address] FINAL PERFORMING LAB [facility] Comment on above: Order Comment: Speci men Type: TISSUE SPECIMEN Ordering Facility: [facility] Address: [address] [place] [address] Result Comment: Diag nostic interpretation performed at [facility], [address] [place] [address] CLIA# [id number] Plant Engineering Manager: Woodrow Mulligan M.D. Performed By: #### S #### [facility] CLIA [id number] [address] GROSS DESCRIPTION [facility] Comment on above: Order Comment: Speci men Type: TISSUE SPECIMEN Ordering Facility: [facility] Address: [address] [place] [address] Result Comment: A. U TERUS, CERVIX, BILATERAL FALLOPIAN TUBES AND BILATERAL OVARIES. Received in formalin labeled uterus cervix bilateral fallopian tubes and bilateral ovaries is a uterus with attached cervix and attached bilateral fallopian tubes and ovaries weighing overall 175 g. The uterus and attached cervix measures 10 x 7 x 4 cm. The ectocervix is white-pink smooth and glistening. The serosal surface is purple and dull. The cervical os is [place] in contour. Upon opening, the endocervical canal measures 3.5 cm in length and is unremarkable. The endometrial cavity measures 6 cm in length and 3.5 cm in width. The endometrium demonstrates a white-wiggins raised fungating mass on the anterior and posterior aspects measuring approximately 4 x 3.5 x 1 cm (2 cm from the lower uterine segment, 5 cm from the external cervical os). Upon sectioning, the mass does not grossly invade the myometrium. The uninvolved endometrium is purple-wiggins and measures 0.2 cm in thickness. The myometrium is pink-wiggins slightly trabeculated and measures 2.5 cm in thickness. Multiple well-circumscribed intramural nodules are identified ranging in size from 0.4 to 1.5 cm. The cut surfaces are wiggins-pink and whorled with no areas of hemorrhage or necrosis grossly appreciated. The left fallopian tube with attached fimbriated end measures 5.8 cm in length and 0.6 cm in diameter. The fimbriated end is normal and villous. The outer surface of the tube is purple and dull with no paratubal cysts. Sectioning reveals an unremarkable lumen. The left ovary weighs 2 g and measures 2 x 1.5 x 1.3 cm. The outer surface is wiggins and wrinkled. Sectioning reveals fibrous ovarian parenchyma. The right fallopian tube with attached fimbriated end measures 6 cm in length and 0.5 cm in diameter. The fimbriated end is normal and villous. No paratubal cysts are identified. Sectioning reveals an unremarkable lumen. The right ovary weighs 2 g and measures 2.5 x 1.8 x 1 cm. The outer surface is wiggins and wrinkled. Sectioning reveals fibrous ovarian parenchyma. Home Service Technician sections are submitted as follows: A1-anterior cervix, 12:00 A2-posterior cervix, 6:00 A3-posterior lower uterine segment Q9-O7-cqtildqg uterine wall, full-thickness A7-A 11-posterior uterine wall, full-thickness (A8-A9 is a full-thickness section) A 12-A 13-left fimbriated end bisected A 14-left fallopian tube cross-sections A 15-left ovary A 16-right fallopian tube fimbriated end bisected A 17-right fallopian tube and cross-section A 18-right ovary B. LYMPH NODE. Received in formalin labeled left pelvic sentinel lymph node is a irregular fragment of wiggins soft tissue measuring 1 x 1 x 0.5 cm. The specimen is bisected and submitted entirely in cassette B1. Gross examination performed at [facility], [address] [place] [address] CLIA#[id number] OLS October 19, 2021 8:36 AM Performed By: #### S #### [facility] CLIA [id number] [address] [place] [id number] [place] INTRAOPERATIVE DIAGNOSIS Normal [facility] Comment on above: Order Comment: Speci men Type: TISSUE SPECIMEN Ordering Facility: [facility] Address: [address] [place] [address] Result Comment: A. U TERUS, CERVIX, BILATERAL FALLOPIAN TUBES AND BILATERAL OVARIES. Gross diagnosis??? Thickened lobulated endometrium. No definitive gross evidence of myometrial invasion (EAC) Performed By: #### S #### [facility] CLIA [id number] [address] OF [facility] SYNOPTIC REPORT ENDOMETRIUM Normal [facility] Comment on above: Order Comment: Speci men Type: TISSUE SPECIMEN Ordering Facility: [facility] Address: [address] [place] [address] Result Comment: ENDO METRIUM, HYSTERECTOMY - All Specimens 8th Edition - Protocol posted: 01/18/2021 SPECIMEN Procedure: Total hysterectomy and bilateral salpingo-oophorectomy Specimen Integrity: Intact TUMOR Tumor Site: Endometrium Histologic Type: Endometrioid carcinoma, NOS Histologic Grade: FIGO grade 1 Two-Tier Grading System: Low grade (encompassing FIGO 1 and 2) Myometrial Invasion: Not identified Adenomyosis: Present, uninvolved by carcinoma Uterine Serosa Involvement: Not identified Lower Uterine Segment Involvement: Not identified Cervical Stromal Involvement: Not identified Other Tissue / Organ Involvement: Not identified Peritoneal / Ascitic Fluid: Not submitted / unknown Lymphovascular Invasion (LVI): Not identified REGIONAL LYMPH NODES Regional Lymph Node Status: : All regional lymph nodes negative for tumor cells Lymph Nodes Examined: Total Number of Pelvic Nodes Examined: 1 Number of Pelvic [place] Nodes Examined: 1 Total Number of Para-aortic Nodes Examined: 0 PATHOLOGIC STAGE CLASSIFICATION (pTNM, AJCC 8th Edition) Reporting of pT, pN, and (when applicable) pM categories is based on information available to the pathologist at the time the report is issued. As per the AJCC (Chapter 1, 8th Ed.) it is the managing physician???s responsibility to establish the final pathologic stage based upon all pertinent information, including but potentially not limited to this pathology report. pT Category: pT1a Regional Lymph Nodes Modifier: (sn) pN Category: pN0 FIGO STAGE FIGO Stage: IA ADDITIONAL FINDINGS Additional Findings: Atypical hyperplasia / endometrial intraepithelial neoplasia (EIN) Performed By: #### S #### [facility] CLIA [id number] [address] OF [facility] Bacteria Ur Culton 2 Bacteria identified Cx Nom (U) CULTURE, URINE: Three or more urogenital raad organisms. No predominating uropathogen. Recollect if clinically indicated. Normal [facility] Comment on above: Performed By: #### 6 30-4 ####[facility] [id number] [address] OF [facility] Basic metabolic 2000 panelon 10-11-2021 Anion gap [Moles/Vol] 7 mmol/L Low 9-18 [facility] Comment on above: Order Comment: Speci men Type: BLOOD SPECIMEN Ordering Facility: [facility] Address: [address] [place] [address] Performed By: #### 2 4321-2 #### [facility] CLIA [id number] [address] [place] Calcium [Mass/Vol] 9.5 mg/dL Normal 8.5-10.2 [facility] Comment on above: Order Comment: Speci men Type: BLOOD SPECIMEN Ordering Facility: [facility] Address: [address] [address] Performed By: #### 2 4321-2 #### [facility] CLIA [id number] [address] [place] Chloride [Moles/Vol] 103 mmol/L Normal 97-105 [facility] Comment on above: Order Comment: Speci men Type: BLOOD SPECIMEN Ordering Facility: [facility] Address: [address] [address] Performed By: #### 2 4321-2 #### [facility] CLIA [id number] [address] [place] CO2 [Moles/Vol] 30 mmol/L Normal 22-30 [facility] Comment on above: Order Comment: Speci men Type: BLOOD SPECIMEN Ordering Facility: [facility] Address: [address] [place] [address] Performed By: #### 2 4321-2 #### [facility] CLIA [id number] [address] Creatinine [Mass/Vol] 0.75 mg/dL Normal 0.58-0.96 [facility] Comment on above: Order Comment: Speci men Type: BLOOD SPECIMEN Ordering Facility: [facility] Address: [address] [place] [address] Performed By: #### 2 4321-2 #### [facility] CLIA [id number] [address] ESTIMATED GLOMERULAR FILTRATION RATE 86 mL/min/1.73m??? Normal >=60 [facility] Comment on above: Order Comment: Speci men Type: BLOOD SPECIMEN Ordering Facility: [facility] Address: [address] [place] [address] Result Comment: Inga mated Glomerular Filtration Rate (eGFR) is calculated using the 2020 CKD-EPI creatinine equation. This equation utilizes serum creatinine, sex, and age as parameters. The creatinine assay has traceable calibration to isotope dilution-mass spectrometry. Refer to KDIGO guidelines for clinical interpretation. In patients with unstable renal function, e.g. those with acute kidney injury, the eGFR may not accurately reflect actual GFR. Performed By: #### 2 4321-2 #### [facility] CLIA [id number] [address] [place] Glucose [Mass/Vol] 105 mg/dL High 74-99 [facility] Comment on above: Order Comment: Speci men Type: BLOOD SPECIMEN Ordering Facility: [facility] Address: [address] [place] [address] Result Comment: The [place] Diabetes Association (ADA) provides guidance for cutoff values for fasting glucose and random glucose. The ADA defines fasting as no caloric intake for at least 8 hours. Fasting plasma glucose results between 100 to 125 mg/dL indicate increased risk for diabetes (prediabetes). Fasting plasma glucose results greater than or equal to 126 mg/dL meet the criteria for diagnosis of diabetes. In the absence of unequivocal hyperglycemia, results should be confirmed by repeat testing. In a patient with classic symptoms of hyperglycemia or hyperglycemic crisis, random plasma glucose results greater than or equal to 200 mg/dL meet the criteria for diagnosis of diabetes. Reference: Standards of Medical Care in Diabetes 2016, [place] [employer] Association. Diabetes Care. 2016.39(Suppl 1). Performed By: #### 2 4321-2 #### [facility] CLIA [id number] [address] Potassium [Moles/Vol] 4.6 mmol/L Normal 3.7-5.1 [facility] Comment on above: Order Comment: Britton stearns Type: BLOOD SPECIMEN Ordering Facility[facility] Address: [address] [place] [address] Performed By: #### 2 4321-2 #### [facility] CLIA [id number] [address] Sodium [Moles/Vol] 140 mmol/L Normal 136-144 [facility] Comment on above: Order Comment: Britton stearns Type: BLOOD SPECIMEN Ordering Facility[facility] Address: [address] [place] [address] Performed By: #### 2 4321-2 #### [facility] CLIA [id number] [address] [place] [address] [facility] Urea nitrogen [Mass/Vol] 12 mg/dL Normal 7-21 [facility] Comment on above: Order Comment: Britton stearns Type: BLOOD SPECIMEN Ordering Facility: [facility] Address: [address] [address] Performed By: #### 2 4321-2 #### [facility] CLIA [id number] [address] [place] CBC panel Auto (Bld)on 10-11 Erythrocyte distribution width (RBC) [Ratio] 13.2 % Normal 11.5-15.0 [facility] Comment on above: Order Comment: Speci men Type: BLOOD SPECIMEN Ordering Facility[facility] Address: [address] [place] [address] Performed By: #### 5 8410-2 #### [facility] CLIA [id number] [address] OF [facility] Hematocrit (Bld) [Volume fraction] 42.9 % Normal 36.0-46.0 [facility] Comment on above: Order Comment: Speci men Type: BLOOD SPECIMEN Ordering Facility[facility] Address: [address] [place] [address] Performed By: #### 5 8410-2 #### [facility] CLIA [id number] [address] Hemoglobin (Bld) [Mass/Vol] 13.8 g/dL Normal 11.5-15.5 [facility] Comment on above: Order Comment: Speci men Type: BLOOD SPECIMEN Ordering Facility: [facility] Address: [address] [place] [address] Performed By: #### 5 8410-2 #### [facility] CLIA [id number] [address] MCH (RBC) [Entitic mass] 28.5 pg Normal 26.0-34.0 [facility] Comment on above: Order Comment: Speci men Type: BLOOD SPECIMEN Ordering Facility[facility] Address: [address] [place] [address] Performed By: #### 5 8410-2 #### [facility] CLIA [id number] [address] [facility] MCHC (RBC) [Mass/Vol] 32.2 g/dL Normal 30.5-36.0 [facility] Comment on above: Order Comment: Speci men Type: BLOOD SPECIMEN Ordering Facility: [facility] Address: [address] [place], [place] [address] Performed By: #### 5 8410-2 #### [facility] CLIA [id number] [address] MCV (RBC) [Entitic vol] 88.5 fL Normal 80.0-100.0 [facility] Comment on above: Order Comment: Speci men Type: BLOOD SPECIMEN Ordering Facility: [facility] Address: [facility] [place] [address] Performed By: #### 5 8410-2 #### [facility] CLIA [id number] [address] Nucleated RBC (Bld) [#/Vol] 10*3/uL Normal <0.01 [facility] Comment on above: Order Comment: Speci men Type: BLOOD SPECIMEN Ordering Facility: [facility] Address: [address] [place] [address] Performed By: #### 5 8410-2 #### [facility] CLIA [id number] [address] Platelet mean volume (Bld) [Entitic vol] 9.6 fL Normal 9.0-12.7 [facility] Comment on above: Order Comment: Speci men Type: BLOOD SPECIMEN Ordering Facility[facility] Address: [address] [place] [address] Performed By: #### 5 8410-2 #### [facility] CLIA [id number] [address] Platelets (Bld) [#/Vol] 353 10*3/uL Normal 150-400 [facility] Comment on above: Order Comment: Speci men Type: BLOOD SPECIMEN [facility] Address: [facility] [place] [address] Performed By: #### 5 8410-2 #### [facility] CLIA [id number] [address] RBC (Bld) [#/Vol] 4.85 10*6/uL Normal 3.90-5.20 [facility] Comment on above: Order Comment: Speci men Type: BLOOD SPECIMEN Ordering Facility[facility] Address: [address] [place] [address] Performed By: #### 5 8410-2 #### [facility] CLIA [id number] [address] WBC (Bld) [#/Vol] 9.78 10*3/uL Normal 3.70-11.00 [facility] Comment on above: Order Comment: Speci men Type: BLOOD SPECIMEN Ordering Facility[facility] Address: [address] [place] [address] Performed By: #### 5 8410-2 #### [facility] CLIA [id number] [address] HISTORY PHYSICALon HISTORY PHYSICAL HNO ID: [id number] Author: Dayanara Galeana APRN.VISUAL ARTS TEACHER Service: ? Author Type: Nurse Practitioner Type: HANDP Filed: 10/11/2021 2:19 PM Note Text: HISTORY AND PHYSICAL EXAMINATION SERVICE DATE: 10/11/2021 SERVICE TIME: 2:04 PM PRIMARY CARE PHYSICIAN: Meir Overton MD REASON FOR VISIT: Dionna Bingham is a 71 year old female who is scheduled for Procedure(s): EXAM UNDER ANESTHESIA PELVIC / VAGINAL (N/A) CYSTOSCOPY (N/A) LAPAROSCOPIC HYSTERECTOMY TOTAL FOR UTERUS 250 G OR LESS W/REMOVAL TUBE(S) AND/OR OVARY(S) (Bilateral) TRANSFUSION BLOOD (N/A) LAPAROSCOPY SURGICAL W/RETROPERITONEAL LYMPH NODE SAMPLING SINGLE OR MULTIPLE (N/A) at the request of Dr. Jennifer Jensen for routine HANDP. My final recommendation will be communicated back to the requesting physician by way of shared medical record or letter. 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 She states she had post menopausal bleeding. She had a pap test and she was told she had cancer. She rates the pain 310. Surgery was recommended and she agrees to proceed as planned. She is scheduled for EXAM UNDER ANESTHESIA PELVIC / VAGINAL ,CYSTOSCOPY ,LAPAROSCOPIC HYSTERECTOMY TOTAL FOR UTERUS 250 G OR LESS W/REMOVAL TUBE(S) AND/OR OVARY(S) (Bilateral),TRANSFUSION BLOOD LAPAROSCOPY SURGICAL W/RETROPERITONEAL LYMPH NODE SAMPLING SINGLE OR MULTIPLE on 10/18/[address] Sharron Sims Surgery will be at [facility] Scheduled as an out patient Have you been in contact with someone with known coronavirus/Covid 19? no Have you had surgery or pre testing at [facility] in the past 3 years? no REVIEW OF SYSTEMS: General: No weight loss, malaise or fevers. Neurological: Positive for: Parkinson's disease. Negative for: headaches. Respiratory: Positive for: obstructive sleep apnea. Negative for: asthma, COPD and tobacco use. Cardiovascular: Positive for: hypertension Negative for: AICD/PPM, chest pain, CHF, recent PA and open heart surgery. GI: No history of GI symptoms or problems. No history of esophageal varices, recent ascites, or ETOH greater than 2 drinks per day. Negative for: abdominal pain, nausea and vomiting. : No history of dysuria, frequency or incontinence, stones or chronic kidney disease. No difficulty urinating, nocturia > 1 time per night or hematuria. PARTITION NOTCHER: S/p menopause Endocrine: No history of diabetes. Has not taken steroids within the past 30 days. No history of endocrinological symptoms or problems. Negative for: hypothyroidism. Hematology: No history of bleeding or clotting disorder. Patient is not taking anti-coagulation or platelet medications. No history of hematological symptoms or problems. Oncology: + endometrial cancer Psych: Positive for: depression. Negative for: anxiety. Musculoskeletal: Negative for joint pain or swelling, back pain or muscle pain. Skin: Negative for lesions, rash and itching. PAST MEDICAL HISTORY Diagnosis Date - Depression - EIN (endometrial intraepithelial neoplasia) - Hypertension - Parkinson's disease (HCC) - Post-operative nausea and vomiting - Sleep apnea + cpap PAST SURGICAL HISTORY Procedure Laterality Date - ARTHRP KNE CONDYLEANDPLATU MEDIALANDLAT COMPARTMENTS Right 2012 Knee replacement, total - CATARACT EXTRACTION HX Bilateral 2019 - CHOLECYSTECTOMY 1972 Cholecystectomy - DANDC, DIAG AND/OR THERAPEUTIC 08/31/2021 Polypectomy DANDC- simple and complex with atypia - UNSPECIFIED ORAL SURGERY PROCEDURE, BY REPORT FAMILY HISTORY Problem Relation Age of Onset - Breast Cancer Mother 80 - No Known Problems Father - No Known Problems Sister - No Known Problems Brother - Cancer Brother due to exposure in - Uterine Cancer No Family History - Ovarian cancer No Family History - Prostate Cancer No Family History - Colon Cancer No Family History Social History Tobacco Use - Smoking status: Never Smoker - Smokeless tobacco: Never Used Vaping Use - Vaping Use: Never used Substance Use Topics - Alcohol use: Yes Comment: occasionally - Drug use: No Prior to Admission medications as of 10/10/21 1012 Medication Sig Last Dose Taking Aug Betamethasone Dipropionate (DIPROLENE) 0.05 % ointment Apply to affected area as needed. selegiline (ELDEPRYL) 5 mg tablet Take 5 mg by mouth twice daily with meals. losartan (COZAAR) 50 mg tablet Take by mouth once daily. carbidopa-levodopa CR (SINEMET (more content not included)... Normal [facility] TYPE AND SCREEN,30 DAYon ABO AB Normal [facility] Comment on above: Order Comment: Speci men Type: BLOOD SPECIMENOrdering Facility: [facility] Address: [address] [place] [address] Performed By: #### T SCR30 ####[facility] [id number] [address] STATES OF [facility] HISTORICAL AB SCR STATUS Negative Normal [facility] Comment on above: Order Comment: Speci men Type: BLOOD SPECIMENOrdering Facility: [facility] Address: [address] [address] Performed By: #### T SCR30 ####[facility] [id number] [address] [place] Rh Nom (Bld) Positive Normal [facility] Comment on above: Order Comment: Speci men Type: BLOOD SPECIMENOrdering Facility: [facility] Address: [address] [place] [address] Performed By: #### T SCR30 ####[facility] [id number] [place] [address] [place] [facility] CNOVSPon 10-02-2021 CNOVSP Visit (SP) Office (SHO) DIONNA BINGHAM ([id number]) 1950 F Date Time Provider Department 10/02/21 1:00 PM JENNIFER JENSEN During your visit today, we recorded the following information about you: Temperature Pulse Blood pressure Weight 98.2 degrees 72/minute 138/72 96.6 kg Height 1.626 m Jennifer Jensen MD 10/02/2021 1:46 PM Signed Gynecologic Oncology Consultation Note [facility] Referring provider: Corrina Pitts Chief complaint: EIN HPI: This is a 71 year old patient with a new diagnosis of EIN here for surgical consultation. She has had spotting and intermittent cramping since April 2021. She had a pap smear that showed atypical glandular cells, endometrial type, HPV negative. Endometrial biopsy showed a polyp. Because of persistent spotting, she underwent a hysteroscopy, D+C, polypectomy in early Aug 2021. Results showed but simple and complex hyperplasia with atypia. She saw Corrina Pitts and desires surgery so was referred for consultation. Other than light spotting/cramping, she feels well. She denies N/V/C/D, no other pain. Good appetite. ROS: 14 point ROS negative unless indicated in above HPI. Medical history: PAST MEDICAL HISTORY Diagnosis Date - EIN (endometrial intraepithelial neoplasia) - Hypertension - Parkinson's disease (HCC) Surgical history: PAST SURGICAL HISTORY Procedure Laterality Date - ARTHRP KNE CONDYLEANDPLATU MEDIALANDLAT COMPARTMENTS Right Knee replacement, total - CATARACT EXTRACTION HX Bilateral 2019 - CHOLECYSTECTOMY Cholecystectomy - DANDC, DIAG AND/OR THERAPEUTIC 08/31/2021 Polypectomy DANDC- simple and complex with atypia - UNSPECIFIED ORAL SURGERY PROCEDURE, BY REPORT [place] Drier history: (). Menopause early to mid 50s. No h/o of abnormal Pap smears. Family history: Family History Problem Relation Age of Onset - Breast Cancer Mother 80 - No Known Problems Father - No Known Problems Sister - No Known Problems Brother - Cancer Brother due to exposure in - Uterine Cancer No Family History - Ovarian cancer No Family History - Prostate Cancer No Family History - Colon Cancer No Family History Social history: Social History Tobacco Use - Smoking status: Never Smoker - Smokeless tobacco: Never Used Vaping Use - Vaping Use: Never used Substance Use Topics - Alcohol use: Yes Comment: occasionally - Drug use: No Medications: Current Outpatient Medications Medication Sig Dispense Refill - Aug Betamethasone Dipropionate (DIPROLENE) 0.05 % ointment - miSOPROStol (CYTOTEC) 200 mcg tablet Insert 2 tablets vaginally night prior to procedure and 2 tablets morning of procedure. Each dose should be in vagina for 6-8 hours. (Patient not taking: Reported on 09/29/2021 ) 4 tablet 0 - selegiline (ELDEPRYL) 5 mg tablet Take 5 mg by mouth twice daily with meals. - losartan (COZAAR) 50 mg tablet 3 - carbidopa-levodopa CR (SINEMET CR) 50-200 mg per tablet Take 1 tablet by mouth three times daily. 6 - DAILY MULTIVITAMIN TAB Take one(1) tablet daily. (Patient not taking: Take one(1) tablet daily.) 0 - CALCIUM 600 600 MG TAB take one tablet daily (Patient not taking: ) 0 No current facility-administered medications for this visit. Healthcare maintenance: Colonoscopy: Reports up to date Mammogram: Reports up to date Pap smear: See HPI PE: EGOG PS 1 BP 138/72 (BP Site: Right Arm, BP Position: Sitting, BP Cuff Size: Large Adult) Pulse 72 Temp 36.8 ?C (98.2 ?F) (Temporal) Ht 162.6 cm (5' 4) Wt 96.6 kg (213 lb) SpO2 95% BMI 36.56 kg/m? Gen: well-appearing, NAD Abd: obese, soft, NTTP, RUQ subcostal incision Pelvic: normal external exam, speculum shows large cervix without lesions, scant white discharge, no blood, bimanual with smooth parous cervix, mobile uterus, free parametria Labs/Imaging: Pathology (09/06/21): Simple and complex hyperplasia with atypia Pelvic US (08/11/21): Uterus Uterus: Visualized Uterus position: anteverted Uterus long 108 mm Uterus ap 53 mm Uterus tr 55 mm Uterus Vol 164.7 cm? Endometrial thickness, total 29.5 mm Right Ovary Rt ovary: Not visualized Left Ovary Lt ovary: Visualized Lt ovary D1 44 mm Lt ovary D2 38?mm Lt ovary D3 27 mm Lt ovary Vol 23.7 cm? Lt ovarian cyst D1 38 mm Lt ovarian cyst D2 24 mm Lt ovarian cyst D3 25 mm Lt ovarian cyst mean 29.0 mm Lt ovarian cyst vol 11.938 cm? Lt ovarian cyst findings: simple cyst Cul de Sac Visualized. no free fluid visualized A/P: This is a 71 year old patient with a new diagnosis of EIN here for surgical consultation. EIN: - We reviewed the natural history of EIN and endometrial cancer: - Reviewed up to 40 % of patients have a concurrent endometrial cancer at time of surgery. - She was previously offered cons (more content not included)... Normal [facility] TYPE AND SCREEN,30 DAYon ABO AB Normal [facility] Comment on above: Order Comment: Speci men Type: BLOOD SPECIMEN Ordering Facility: [facility] Address: [address] [place] [address] Performed By: #### T SCR30 #### [facility] CLIA [id number] [address] OF [facility] HISTORICAL AB SCR STATUS Negative Normal [facility] Comment on above: Order Comment: Speci men Type: BLOOD SPECIMEN Ordering Facility: [facility] Address: [address] [place] [address] Performed By: #### T SCR30 #### [facility] CLIA [id number] [address] [place] Rh Nom (Bld) Positive Normal [facility] Comment on above: Order Comment: Speci men Type: BLOOD SPECIMEN Ordering Facility: [facility] Address: [address] [place] [address] Performed By: #### T SCR30 #### [facility] CLIA [id number] [address] [place] CA 125 BLDon 09-29-2021 Cancer Ag 125 Qn 17 [arb'U]/mL Normal <39 [facility] Comment on above: Order Comment: Speci men Type: BLOOD SPECIMEN Ordering Facility: [facility] Address: [address] [place] [address] Result Comment: CA 1 25 test methodology used is the Electrochemiluminescence Immunoassay by [employer]. The reference interval is based on the 95th percentile of 240 apparently healthy premenopausal and postmenopausal women. At a cutoff value of 65 U/mL, the test sensitivity to distinguish ovarian carcinoma (FIGO stage I to IV) versus benign gynecological disease is 79%, with a specificity of 82%. Reference: Cancer Antigen 125 (CA 125 II) [package insert V 1.0 Bangl[place]hi]. [facility], [place], [place] (April 2015) Performed By: #### C A125 #### [facility] CLIA [id number] [address] [place] [address] [id number] [place] CBC W Auto Differential pane l (Bld)on 09-29-2021 Basophils (Bld) [#/Vol] 0.06 10*3/uL Normal <0.11 [facility] Comment on above: Order Comment: Speci men Type: BLOOD SPECIMEN Ordering Facility: [facility] Address: [address] [place], [place] [address] Performed By: #### 5 7021-8 #### [facility] CLIA [id number] [address] [place] Basophils/100 WBC (Bld) 0.6 % Normal [facility] Comment on above: Order Comment: Speci men Type: BLOOD SPECIMEN Ordering Facility: [facility] Address: [address] [place], [place] [address] Performed By: #### 5 7021-8 #### [facility] CLIA [id number] [address] Differential cell count method Nom (Bld) Auto Normal [facility] Comment on above: Order Comment: Speci men Type: BLOOD SPECIMEN Ordering Facility: [facility] Address: [address] [place] [address] Performed By: #### 5 7021-8 #### [facility] CLIA [id number] [address] [place] Eosinophils (Bld) [#/Vol] 0.38 10*3/uL Normal <0.46 [facility] Comment on above: Order Comment: Speci men Type: BLOOD SPECIMEN Ordering Facility: [facility] Address: [address] [place] [address] Performed By: #### 5 7021-8 #### [facility] CLIA [id number] [address] Eosinophils/100 WBC (Bld) 4.0 % Normal [facility] Comment on above: Order Comment: Speci men Type: BLOOD SPECIMEN Ordering Facility: [facility] Address: [address] [place] [address] Performed By: #### 5 7021-8 #### [facility] CLIA [id number] [address] Erythrocyte distribution width (RBC) [Ratio] 13.2 % Normal 11.5-15.0 [facility] Comment on above: Order Comment: Speci men Type: BLOOD SPECIMEN Ordering Facility: [facility] Address: [address] [address] Performed By: #### 5 7021-8 #### [facility] CLIA [id number] [address] Hematocrit (Bld) [Volume fraction] 45.3 % Normal 36.0-46.0 [facility] Comment on above: Order Comment: Speci men Type: BLOOD SPECIMEN Ordering Facility: [facility] Address: [address] [place] [address] Performed By: #### 5 7021-8 #### [facility] CLIA [id number] [address] Hemoglobin (Bld) [Mass/Vol] 14.8 g/dL Normal 11.5-15.5 [facility] Comment on above: Order Comment: Speci men Type: BLOOD SPECIMEN Ordering Facility: [facility] Address: [address] [place] [address] Performed By: #### 5 7021-8 #### [facility] CLIA [id number] [address] IMMATURE GRAN % 0.3 % Normal [facility] Comment on above: Order Comment: Speci men Type: BLOOD SPECIMEN Ordering Facility: [facility] Address: [address] [place] [address] Performed By: #### 5 7021-8 #### [facility] CLIA [id number] [address] IMMATURE GRAN ABS 0.03 k/uL Normal <0.10 [facility] Comment on above: Order Comment: Speci men Type: BLOOD SPECIMEN Ordering Facility: [facility] Address: [address] [place] [address] Performed By: #### 5 7021-8 #### [facility] CLIA [id number] [address] [place] Lymphocytes (Bld) [#/Vol] 3.04 10*3/uL Normal 1.00-4.00 [facility] Comment on above: Order Comment: Speci men Type: BLOOD SPECIMEN Ordering Facility: [facility] Address: [address] [place] [address] Performed By: #### 5 7021-8 #### [facility] CLIA [id number] [address] Lymphocytes/100 WBC (Bld) 31.6 % Normal [facility] Comment on above: Order Comment: Speci men Type: BLOOD SPECIMEN Ordering Facility: [facility] Address: [address] [place] [address] Performed By: #### 5 7021-8 #### [facility] CLIA [id number] [address] MCH (RBC) [Entitic mass] 28.8 pg Normal 26.0-34.0 [facility] Comment on above: Order Comment: Speci men Type: BLOOD SPECIMEN Ordering Facility: [facility] Address: [address] [place] [address] Performed By: #### 5 7021-8 #### [facility] CLIA [id number] [address] [place] MCHC (RBC) [Mass/Vol] 32.7 g/dL Normal 30.5-36.0 [facility] Comment on above: Order Comment: Speci men Type: BLOOD SPECIMEN Ordering Facility: [facility] Address: [address] [place] [address] Performed By: #### 5 7021-8 #### [facility] CLIA [id number] [address] MCV (RBC) [Entitic vol] 88.3 fL Normal 80.0-100.0 [facility] Comment on above: Order Comment: Speci men Type: BLOOD SPECIMEN Ordering Facility: [facility] Address: [address] [place] [address] Performed By: #### 5 7021-8 #### [facility] CLIA [id number] [address] Monocytes (Bld) [#/Vol] 0.86 10*3/uL Normal <0.87 [facility] Comment on above: Order Comment: Speci men Type: BLOOD SPECIMEN Ordering Facility: [facility] Address: [address] [place] [address] Performed By: #### 5 7021-8 #### [facility] CLIA [id number] [address] Monocytes/100 WBC (Bld) 8.9 % Normal [facility] Comment on above: Order Comment: Speci men Type: BLOOD SPECIMEN Ordering Facility: [facility] Address: [address] [address] Performed By: #### 5 7021-8 #### [facility] CLIA [id number] [address] [place] [address] [place] Neutrophils (Bld) [#/Vol] 5.25 10*3/uL Normal 1.45-7.50 [facility] Comment on above: Order Comment: Speci men Type: BLOOD SPECIMEN Ordering Facility: [facility] Address: [address] [place] [address] Performed By: #### 5 7021-8 #### [facility] CLIA [id number] [address] [place] Neutrophils/100 WBC (Bld) 54.6 % Normal [facility] Comment on above: Order Comment: Speci men Type: BLOOD SPECIMEN Ordering Facility: [facility] Address: [address] [place] [address] Performed By: #### 5 7021-8 #### [facility] CLIA [id number] [address] [place] [address] [place] Nucleated RBC (Bld) [#/Vol] 10*3/uL Normal <0.01 [facility] Comment on above: Order Comment: Speci men Type: BLOOD SPECIMEN Ordering Facility: [facility] Address: [address] [place] [address] Performed By: #### 5 7021-8 #### [facility] CLIA [id number] [address] [place] Nucleated RBC/100 WBC (Bld) [Ratio] 0.0 /100 WBC Normal [facility] Comment on above: Order Comment: Speci men Type: BLOOD SPECIMEN Ordering Facility: [facility] Address: [address] [place] [address] Performed By: #### 5 7021-8 #### [facility] CLIA [id number] [address] [place] Platelet mean volume (Bld) [Entitic vol] 9.2 fL Normal 9.0-12.7 [facility] Comment on above: Order Comment: Speci men Type: BLOOD SPECIMEN Ordering Facility: [facility] Address: [address] [place] [address] Performed By: #### 5 7021-8 #### [facility] CLIA [id number] [address] Platelets (Bld) [#/Vol] 377 10*3/uL Normal 150-400 [facility] Comment on above: Order Comment: Speci men Type: BLOOD SPECIMEN Ordering Facility: [facility] Address: [address] [place] [address] Performed By: #### 5 7021-8 #### [facility] CLIA [id number] [address] [place] RBC (Bld) [#/Vol] 5.13 10*6/uL Normal 3.90-5.20 [facility] Comment on above: Order Comment: Speci men Type: BLOOD SPECIMEN Ordering Facility: [facility] Address: [address] [place] [address] Performed By: #### 5 7021-8 #### [facility] CLIA [id number] [address] WBC (Bld) [#/Vol] 9.62 10*3/uL Normal 3.70-11.00 [facility] Comment on above: Order Comment: Speci men Type: BLOOD SPECIMEN Ordering Facility: [facility] Address: [address] [place] [address] Performed By: #### 5 7021-8 #### [facility] CLIA [id number] [address] [place] Comprehensive metabolic 2000 panelon 09-29-2021 Albumin [Mass/Vol] 3.9 g/dL Normal 3.9-4.9 [facility] Comment on above: Order Comment: Speci men Type: BLOOD SPECIMEN Ordering Facility: [facility] Address: [address] [place] [address] Performed By: #### 2 4323-8 #### [facility] CLIA [id number] [address] [place] ALP [Catalytic activity/Vol] 89 U/L Normal 34-123 [facility] Comment on above: Order Comment: Speci men Type: BLOOD SPECIMEN Ordering Facility: [facility] Address: [address] [address] Performed By: #### 2 4323-8 #### [facility] CLIA [id number] [address] [place] [address] [place] ALT [Catalytic activity/Vol] 8 U/L Normal 7-38 [facility] Comment on above: Order Comment: Speci men Type: BLOOD SPECIMEN Ordering Facility: [facility] Address: [address] [address] Performed By: #### 2 4323-8 #### [facility] CLIA [id number] [address] [place] [address] [place] Anion gap [Moles/Vol] 10 mmol/L Normal 9-18 [facility] Comment on above: Order Comment: Speci men Type: BLOOD SPECIMEN Ordering Facility: [facility] Address: [address] [place] [address] Performed By: #### 2 4323-8 #### [facility] CLIA [id number] [address] [place] [address] [place] AST [Catalytic activity/Vol] 24 U/L Normal 13-35 [facility] Comment on above: Order Comment: Speci men Type: BLOOD SPECIMEN Ordering Facility: [facility] Address: [address] [address] Performed By: #### 2 4323-8 #### [facility] CLIA [id number] [address] [place] [address] [place] Bilirubin [Mass/Vol] 0.3 mg/dL Normal 0.2-1.3 [facility] Comment on above: Order Comment: Speci men Type: BLOOD SPECIMEN Order[facility] Facility: [facility] Address: [address] [place] [address] Performed By: #### 2 4323-8 #### [facility] CLIA [id number] [address] [place] [address] [place] Calcium [Mass/Vol] 9.7 mg/dL Normal 8.5-10.2 [facility] Comment on above: Order Comment: Speci men Type: BLOOD SPECIMEN Ordering Facility: [facility] Address: [address] [address] Performed By: #### 2 4323-8 #### [facility] CLIA [id number] [address] Chloride [Moles/Vol] 104 mmol/L Normal 97-105 [facility] Comment on above: Order Comment: Speci men Type: BLOOD SPECIMEN Ordering Facility: [facility] Address: [address] [place] [address] Performed By: #### 2 4323-8 #### [facility] CLIA [id number] [address] CO2 [Moles/Vol] 26 mmol/L Normal 22-30 [facility] Comment on above: Order Comment: Speci men Type: BLOOD SPECIMEN Ordering Facility: [facility] Address: [address] [place] [address] Performed By: #### 2 4323-8 #### [facility] CLIA [id number] [address] Creatinine [Mass/Vol] 0.67 mg/dL Normal 0.58-0.96 [facility] Comment on above: Order Comment: Speci men Type: BLOOD SPECIMEN Ordering Facility: [facility] Address: [address] [place] [address] Performed By: #### 2 4323-8 #### [facility] CLIA [id number] [address] ESTIMATED GLOMERULAR FILTRATION RATE 94 mL/min/1.73m??? Normal >=60 [facility] Comment on above: Order Comment: Speci men Type: BLOOD SPECIMEN Ordering Facility: [facility] Address: [address] [place] [address] Result Comment: Inga mated Glomerular Filtration Rate (eGFR) is calculated using the 2020 CKD-EPI creatinine equation. This equation utilizes serum creatinine, sex, and age as parameters. The creatinine assay has traceable calibration to isotope dilution-mass spectrometry. Refer to KDIGO guidelines for clinical interpretation. In patients with unstable renal function, e.g. those with acute kidney injury, the eGFR may not accurately reflect actual GFR. Performed By: #### 2 4323-8 #### [facility] CLIA [id number] [address] [place] [address] [place] Glucose [Mass/Vol] 102 mg/dL High 74-99 [facility] Comment on above: Order Comment: Britton stearns Type: BLOOD SPECIMEN Ordering Facility: [facility] Address: [address] [place] [address] Result Comment: The [place] [employer] (ADA) provides guidance for cutoff values for fasting glucose and random glucose. The ADA defines fasting as no caloric intake for at least 8 hours. Fasting plasma glucose results between 100 to 125 mg/dL indicate increased risk for diabetes (prediabetes). Fasting plasma glucose results greater than or equal to 126 mg/dL meet the criteria for diagnosis of diabetes. In the absence of unequivocal hyperglycemia, results should be confirmed by repeat testing. In a patient with classic symptoms of hyperglycemia or hyperglycemic crisis, random plasma glucose results greater than or equal to 200 mg/dL meet the criteria for diagnosis of diabetes. Reference: Standards of Medical Care in Diabetes 2016, [place] [employer] Association. Diabetes Care. 2016.39(Suppl 1). Performed By: #### 2 4323-8 #### [facility] CLIA [id number] [address] [place] [address] [place] Potassium [Moles/Vol] 4.4 mmol/L Normal 3.7-5.1 [facility] Comment on above: Order Comment: Britton stearns Type: BLOOD SPECIMEN Ordering Facility: [facility] Address: [address] [address] Performed By: #### 2 4323-8 #### [facility] CLIA [id number] [address] [place] [address] [place] Protein [Mass/Vol] 7.3 g/dL Normal 6.3-8.0 [facility] Comment on above: Order Comment: Britton stearns Type: BLOOD SPECIMEN Ordering Facility: [facility] Address: [address] [place] [address] Performed By: #### 2 4323-8 #### [facility] CLIA [id number] 1000 [place], [place] [address] [place] [address] [place] Sodium [Moles/Vol] 140 mmol/L Normal 136-144 [facility] Comment on above: Order Comment: Speci men Type: BLOOD SPECIMEN Ordering Facility: [facility] Address: [address] [place] [address] Performed By: #### 2 4323-8 #### [facility] CLIA [id number] [address] [place] Urea nitrogen [Mass/Vol] 12 mg/dL Normal 7-21 [facility] Comment on above: Order Comment: Speci men Type: BLOOD SPECIMEN Ordering Facility: [facility] Address: [address] [place] [address] Performed By: #### 2 4323-8 #### [facility] CLIA [id number] [address] [place] Hemoglobin A1con 07-27-2021 Glucose [Mass/Vol] 123 mg/dL Normal [facility] Comment on above: Performed By: #### H BA1C #### [facility] [address] [phone] HbA1c (Bld) [Mass fraction] 5.9 % High 4.3-5.6 [facility] Comment on above: Performed By: #### H BA1C #### [facility] [address] [address] Hemoglobin A1con 01-20-2021 Glucose [Mass/Vol] 123 mg/dL Normal [facility] Comment on above: Performed By: #### H BA1C #### [facility] [address] [address] HbA1c (Bld) [Mass fraction] 5.9 % High 4.3-5.6 [facility] Comment on above: Performed By: #### H BA1C #### [facility] [address] [phone] Vital Signs Date Time Vital Sign Value Performing Clinician Marcela dudley 02-02-2025 11:15-0400 Body height 160.[address] Meir Overton MD Work Phone: [facility] 02-02-2025 11:15-0400 Body weight 90.[address] Meir Overton MD Work Phone: [facility] 02-02-2025 11:15-0400 Heart rate 60 /min Dr. Meir Overton MD Work Phone: [facility] 02-02-2025 11:15-0400 SaO2% (BldA) [Mass fraction] 92 % Dr. Meir Overton MD Work Phone: [facility] 12-30-2024 08:43-0400 Body height 160.[address] Meir Overton MD Work Phone: [facility] 12-30-2024 08:43-0400 Body mass index (BMI) [Ratio] 38.2 kg/m2 Dr. Meir Overton MD Work Phone: [facility] 12-30-2024 08:43-0400 Body temperature 97.5 [degF] Dr. Meir Overton MD Work Phone: [facility] 12-30-2024 08:43-0400 Body weight 97.[address] Meir Overton MD Work Phone: [facility] 12-30-2024 08:43-0400 Diastolic blood pressure 80 mm[Hg] Dr. Meir Overton MD Work Phone: [facility] 12-30-2024 08:43-0400 Heart rate 48 /min Dr. Meir Overton MD Work Phone: [facility] 12-30-2024 08:43-0400 Respiratory rate 20 /min Dr. Meir Overton MD Work Phone: [facility] 12-30-2024 08:43-0400 SaO2% (BldA) [Mass fraction] 96 % Dr. Meir Overton MD Work Phone: [facility] 12-30-2024 08:43-0400 Systolic blood pressure 142 mm[Hg] Dr. Meir Overton MD Work Phone: [facility] 08-21-2024 11:03-0500 Body height 161.3 cm Parul Zafar MD Work Phone: [facility] 08-21-2024 11:03-0500 Body mass index (BMI) [Ratio] 38.53 kg/m2 Parul Zafar MD Work Phone: [facility] 08-21-2024 11:03-0500 Body weight 100.25 kg Parul Zafar MD Work Phone: [facility] 08-21-2024 11:03-0500 Diastolic blood pressure 82 mm[Hg] Parul Zafar MD Work Phone: [facility] 08-21-2024 11:03-0500 Systolic blood pressure 146 mm[Hg] Parul Zafar MD Work Phone: [facility] 05-08-2024 10:47-0400 Diastolic blood pressure 69 mm[Hg] Shanice Desir APRN.[employer] Work Phone: [facility] 05-08-2024 10:47-0400 Heart rate 62 /min Shanice Desir APRN.[employer] TE[employer] Work Phone: [facility] 05-08-2024 10:47-0400 SaO2% (BldA) [Mass fraction] 96 % Shanice Desir APRN.[employer] TE[employer]ER Work Phone: [facility] 05-08-2024 10:47-0400 Systolic blood pressure 151 mm[Hg] Shanice Desir APRN.[employer] TE[employer]ER Work Phone: [facility] 03-04-2024 08:58-0400 Body mass index (BMI) [Ratio] 38.01 kg/m2 Parul Zafar MD Work Phone: [facility] 03-04-2024 08:58-0400 Body weight 98.88 kg Parul Zafar MD Work Phone: [facility] 03-04-2024 08:58-0400 Diastolic blood pressure 82 mm[Hg] Parul Zafar MD Work Phone: [facility] 03-04-2024 08:58-0400 Systolic blood pressure 140 mm[Hg] Parul Zafar MD Work Phone: [facility] 11-20-2023 13:31-0400 Body height 161.3 cm Sebastien Lemon MD Work Phone: [facility] 11-20-2023 13:31-0400 Body mass index (BMI) [Ratio] 38.94 kg/m2 Sebastien Lemon MD Work Phone: [facility] 11-20-2023 13:31-0400 Body weight 101.3 kg Sebastien Lemon MD Work Phone: [facility] 11-20-2023 13:31-0400 Diastolic blood pressure 78 mm[Hg] Sebastien Lemon MD Work Phone: [facility] 11-20-2023 13:31-0400 Heart rate 46 /min Sebastien Lemon MD Work Phone: [facility] 11-20-2023 13:31-0400 SaO2% (BldA) [Mass fraction] 96 % Sebastien Lemon MD Work Phone: [facility] 11-20-2023 13:31-0400 Systolic blood pressure 171 mm[Hg] Sebastien Lemon MD Work Phone: [facility] 05-22-2023 12:33-0400 Body height 161.3 cm Sebastien Lemon MD Work Phone: [facility] 05-22-2023 12:33-0400 Body weight 104.01 kg Sebastien Lemon MD Work Phone: [facility] 05-22-2023 12:33-0400 SaO2% (BldA) [Mass fraction] 97 % Sebastien Lemon MD Work Phone: [facility] 05-08-2023 08:55-0400 Body weight 102.06 kg Parul Zafar MD Work Phone: [facility] 05-08-2023 08:55-0400 Diastolic blood pressure 86 mm[Hg] Parul Zafar MD Work Phone: [facility] 05-08-2023 08:55-0400 Systolic blood pressure 140 mm[Hg] Parul Zafar MD Work Phone: [facility] 12-04-2022 09:02-0400 Body weight 103.87 kg Parul Zafar MD Work Phone: [facility] 12-04-2022 09:02-0400 Diastolic blood pressure 80 mm[Hg] Parul Zafar MD Work Phone: [facility] 12-04-2022 09:02-0400 Systolic blood pressure 158 mm[Hg] Parul Zafar MD Work Phone: [facility] 11-20-2022 14:11-0400 Body height 160 cm Sebastien Lemon MD Work Phone: [facility] 11-20-2022 14:11-0400 Diastolic blood pressure 70 mm[Hg] Sebastien Lemon MD Work Phone: [facility] 11-20-2022 14:11-0400 Heart rate 57 /min Sebastien Lemon MD Work Phone: [facility] 11-20-2022 14:11-0400 SaO2% (BldA) [Mass fraction] 94 % Sebastien Lemon MD Work Phone: [facility] 11-20-2022 14:11-0400 Systolic blood pressure 173 mm[Hg] Sebastien Lemon MD Work Phone: [facility] 09-04-2022 09:40-0500 Body weight 100.7 kg Parul Zafar MD Work Phone: [facility] 09-04-2022 09:40-0500 Diastolic blood pressure 84 mm[Hg] Parul Zafar MD Work Phone: [facility] 09-04-2022 09:40-0500 Systolic blood pressure 154 mm[Hg] Parul Zafar MD Work Phone: [facility] 05-30-2022 09:46-0500 Body weight 99.79 kg Parul Zafar MD Work Phone: [facility] 05-30-2022 09:46-0500 Diastolic blood pressure 72 mm[Hg] Parul Zafar MD Work Phone: [facility] 05-30-2022 09:46-0500 Systolic blood pressure 156 mm[Hg] Parul Zafar MD Work Phone: [facility] 05-15-2022 08:11-0400 Body weight 100.7 kg Allison Sheppard APRN.[employer] Work Phone: [facility] 05-15-2022 08:11-0400 Diastolic blood pressure 59 mm[Hg] Allison Sheppard APRN.[employer] TE[employer]ER Work Phone: [facility] 05-15-2022 08:11-0400 Heart rate 64 /min Allison Sheppard APRN.[employer] Work Phone: [facility] [facility] 05-15-2022 08:11-0400 SaO2% (BldA) [Mass fraction] 97 % Allison Sheppard APRN.VISUAL ARTS TEACHER Work Phone: [facility] 05-15-2022 08:11-0400 Systolic blood pressure 139 mm[Hg] Allison Sheppard APRN.VISUAL ARTS TEACHER Work Phone: [facility] 02-27-2022 09:03-0400 Body weight 98.43 kg Parul Zafar MD Work Phone: [facility] 02-27-2022 09:03-0400 Diastolic blood pressure 80 mm[Hg] Parul Zafar MD Work Phone: [facility] 02-27-2022 09:03-0400 Systolic blood pressure 136 mm[Hg] Parul Zafar MD Work Phone: [facility] 12-04-2021 16:05-0400 Body height 162.6 cm Sebastien Lemon MD Work Phone: [facility] 12-04-2021 16:05-0400 Body weight 97.52 kg Sebastien Lemon MD Work Phone: [facility] 12-04-2021 16:05-0400 Diastolic blood pressure 72 mm[Hg] Sebastien Lemon MD Work Phone: [facility] 12-04-2021 16:05-0400 Heart rate 82 /min Sebastien Lemon MD Work Phone: [facility] 12-04-2021 16:05-0400 SaO2% (BldA) [Mass fraction] 97 % Sebastien Lemon MD Work Phone: [facility] 12-04-2021 16:05-0400 Systolic blood pressure 134 mm[Hg] Sebastien Lemon MD Work Phone: [facility] 11-02-2021 13:55-0400 Body height 161.3 cm Jennifer Jensen MD Work Phone: [facility] 11-02-2021 13:55-0400 Body temperature 98.8 [degF] Jennfier Jensen MD Work Phone: [facility] 11-02-2021 13:55-0400 Body weight 95.25 kg Jennifer Jensen MD Work Phone: [facility] 11-02-2021 13:55-0400 Diastolic blood pressure 81 mm[Hg] Jennifer Jensen MD Work Phone: [facility] 11-02-2021 13:55-0400 Heart rate 76 /min Jennifer Jensen MD Work Phone: [facility] 11-02-2021 13:55-0400 SaO2% (BldA) [Mass fraction] 97 % Jennifer Jensen MD Work Phone: [facility] 11-02-2021 13:55-0400 Systolic blood pressure 150 mm[Hg] Jennifer Jensen MD Work Phone: [facility] Encounters Encounter Date Encounter Type Care Provider Facility Start: 02-09-2025 ambulatory Jose Ham Facility:[facility] Start: 02-04-2025 ambulatory Jose Ham Facility:[facility] Start: 02-04-2025 Non-patient / Non-visit Dr. Jose conde DO -[facility] Start: 02-02-2025 End: 02-02-[address] Jose Ham DO -Pulmonary Services/Neurology Work Phone: Start: 02-02-2025 End: 02-02-2025 ambulatory Jose Ham Facility:[facility] Start: 01-04-2025 End: 01-08-2025 Refill Sebastien Lemon MD Work Phone: Neurology Comment on above: Refill Request Start: 12-30-2024 End: 12-30-[address] Jose Ham DO -[facility] Work Phone: Start: 12-30-2024 End: 12-30-[address] Meir Overton MD Work Phone: [facility] Work Phone: Start: 11-19-2024 End: 11-19-2024 ambulatory MEIR OVERTON [facility] Start: 08-21-2024 End: 08-21-2024 ambulatory PARUL ZAFAR Facility:[facility] Start: 08-21-2024 End: 08-21-2024 Patient encounter procedure Parul Zafar MD Work Phone: OB/Gynecology Comment on above: Encounter for gyneco logical examination (general) (routine) without abnormal findings (Primary Dx); Encounter for screening mammogram for breast cancer Start: 08-21-2024 End: 08-21-2024 Patient encounter status Parul Zafar MD Work Phone: [facility] Start: 07-14-2024 End: 07-14-2024 Orders Only Parul Zafar MD Work Phone: Mammogram Comment on above: Abnormal mammogram ( Primary Dx) Abnormal mammogram [ R92.8] Start: 05-20-2024 End: 05-20-2024 Telephone encounter Antonella Rodriguez MD Work Phone: Mammography Comment on above: Mammogram Result Obinna l Back Start: 05-19-2024 End: 05-19-2024 Orders Only Parul Zafar MD Work Phone: Mammogram Comment on above: Abnormal mammogram ( Primary Dx) Start: 05-18-2024 End: 05-18-2024 Telephone encounter Sebastien Lemon MD Work Phone: [facility] Comment on above: DBS Eval Cancellatio n Start: 05-18-2024 End: 05-18-2024 ambulatory PARUL ZAFAR Facility:[facility] Start: 05-18-2024 End: 05-18-2024 Subsequent hospital visit by physician Screen Mammo [facility] Mammogram Comment on above: Encounter for screen ing mammogram for breast cancer [Z12.31] Start: 05-11-2024 End: 05-11-2024 [facility] Start: 05-08-2024 End: 05-08-2024 Subsequent hospital visit by physician Ct 2 Main Qb (I-Stat) Radiology Comment on above: Essential tremor [G2 5.0] Start: 05-08-2024 End: 05-08-2024 Patient encounter procedure Pieter Johnston PA-C Work Phone: [facility] Comment on above: Essential tremor Start: 05-08-2024 End: 05-08-2024 ambulatory MERI OVERTON Facility:[facility] Start: 05-08-2024 End: 05-08-2024 Office outpatient visit 40 minutes Shanice Desir APRN.VISUAL ARTS TEACHER Work Phone: [facility] Comment on above: Essential tremor (Pr imary Dx) Start: 05-01-2024 End: 05-01-2024 Refill Sebastien Lemon MD Work Phone: Neurology Comment on above: Refill Request Start: 03-16-2024 End: 03-16-2024 ambulatory Sebastien Lemon MD Work Phone: Neurology Comment on above: Focused Ultrasound Start: 03-12-2024 End: 03-13-2024 Refill Sebastien Lemon MD Work Phone: Neurology Comment on above: Refill Request Start: 03-04-2024 End: 03-04-2024 ambulatory PARUL ZAFAR Facility:[facility] Start: 03-04-2024 End: 03-04-2024 Patient encounter procedure Parul Zafar MD Work Phone: OB/Gynecology Comment on above: Endometrial cancer ( HCC) (Primary Dx) Start: 01-30-2024 End: 01-30-2024 ambulatory MEIR OVERTON [facility] Start: 11-20-2023 End: 11-20-2023 ambulatory SEBASTIEN LEMON Facility:[facility] Start: 11-20-2023 End: 11-20-2023 Office outpatient visit 15 minutes Sebastien Lemon MD Work Phone: Neurology Comment on above: Essential tremor Start: 05-22-2023 End: 05-22-2023 Office outpatient visit 25 minutes Sebastien Lemon MD Work Phone: Neurology Comment on above: Essential tremor (Pr imary Dx); Parkinsonism, unspecified Parkinsonism type Start: 05-17-2023 End: 05-17-2023 Subsequent hospital visit by physician Screen Mammo [facility] Mammogram Comment on above: Encounter for screen ing mammogram for malignant neoplasm of breast [Z12.31] Start: 05-08-2023 End: 05-08-2023 Patient encounter procedure Parul Zafar MD Work Phone: OB/Gynecology Comment on above: Endometrial cancer ( HCC) (Primary Dx); Encounter for screening mammogram for malignant neoplasm of breast Start: 02-21-2023 Refill Sebastien bustamante MD Work Phone: Neurology Comment on above: Refill Request Start: 02-19-2023 ambulatory Sebastien bustamante MD Work Phone: [facility] Comment on above: Topiramate Start: 12-04-2022 End: 12-04-2022 Patient encounter procedure Parul Zafar MD Work Phone: OB/Gynecology Comment on above: Endometrial cancer ( HCC) (Primary Dx); Diarrhea, unspecified type; Bloating; Rectal sphincter incontinence Start: 11-20-2022 End: 11-20-2022 Office outpatient visit 25 minutes Sebastien Lemon MD Work Phone: [facility] Comment on above: Essential tremor (Pr imary Dx) Start: 09-23-2022 ambulatory Allison crenshaw APRN.CNP Work Phone: Neurology Comment on above: Medication Reduction Update Start: 09-04-2022 End: 09-04-2022 Patient encounter procedure Parul Zafar MD Work Phone: OB/Gynecology Comment on above: Endometrial cancer ( HCC) (Primary Dx); Dysuria; Asymptomatic microscopic hematuria Start: 05-30-2022 End: 05-30-2022 Patient encounter procedure Parul Zafar MD Work Phone: OB/Gynecology Comment on above: Endometrial cancer, grade I (HCC) (Primary Dx); S/P hysterectomy with oophorectomy Start: 05-15-2022 End: 05-15-2022 Patient encounter procedure Allison Sheppard PROGRAMS ASSISTANT.VISUAL ARTS TEACHER Work Phone: Neurology Comment on above: Parkinsonism, unspec ified Parkinsonism type (HCC) (Primary Dx) Start: 05-11-2022 Documentation procedure Mammog abdiel Coordinator [facility] Start: 05-11-2022 Letter encounter Mammography Coordinator [facility] Department Start: 05-11-2022 End: 05-11-2022 Subsequent hospital visit by physician Screen Mammo [facility] Mammogram Comment on above: Encounter for screen ing mammogram for malignant neoplasm of breast [Z12.31] Start: 04-04-2022 Telephone encounter Sebastien barksdale MD Work Phone: Neurology Comment on above: Other (Escitalopram Approval from [employer]) Start: 03-20-2022 ambulatory Sebastien bustamante MD Work Phone: Neurology Comment on above: Medication Adjustmen t Start: 02-27-2022 End: 02-27-2022 Patient encounter procedure Parul Zafar MD Work Phone: OB/Gynecology Comment on above: History of endometri al cancer (Primary Dx); Encounter for screening mammogram for malignant neoplasm of breast Start: 12-13-2021 Telephone encounter Nini brush [facility] Work Phone: [facility] Comment on above: Results (genetic jazmine ting postive RAD51C) Start: 12-04-2021 End: 12-05-2021 Patient encounter procedure Sebastien Lemon MD Work Phone: Neurology Comment on above: Essential tremor (Pr imary Dx) Start: 12-01-2021 End: 12-01-2021 Patient encounter procedure Nini Villeda [facility] Work Phone: [facility] Comment on above: Endometrial cancer ( HCC) (Primary Dx) Start: 11-02-2021 End: 11-02-2021 ambulatory Jennifer Jensen MD Work Phone: [facility] Gynecology Oncology Comment on above: Endometrial cancer ( HCC) (Primary Dx); Postop check Start: 11-02-2021 End: 11-02-2021 Patient encounter procedure Jennifer Jensen MD Work Phone: [facility] Procedures Date Procedure Procedure Detail Performing Clinician Start: 07-14-2024 Us breast uni real t cirilo with image limited Parul Zafar MD Work Phone: Start: 07-14-2024 Digital breast tomosynthesis unilateral Parul Hilario Zafar MD Work Phone: Start: 05-08-2024 Ct head/brain w/o co ntrast material Sebastien Lemon MD Work Phone: Start: 05-17-2023 Screening digital br east tomosynthesis bi Parul Hilario Zafar MD Work Phone: Start: 09-04-2022 Urnls dip stick/tabl et rgnt auto w/o microscopy Parul Hilario Zafar MD Work Phone: Start: 05-11-2022 ANTONELLA SCREENING W MEKA De idre Hilario Zafar MD Work Phone: Start: 05-11-2022 Mammography Screen Wst r Start: 12-02-2021 Adult depression scr eening assessment Sebastien Lemon MD Work Phone: Start: 10-11-2021 Antibody screen Comment on above: Order Comment: Speci men Type: BLOOD SPECIMENOrdering Facility: [facility] Address: [address] [place] [address] Performed By: #### T SCR30 ####[facility] [id number] [address] Start: 10-02-2021 Antibody screen Comment on above: Order Comment: Speci men Type: BLOOD SPECIMEN [facility]ing Facility[facility] Address: [address] [place] [address] Performed By: #### T SCR30 #### [facility] CLIA [id number] 1 [place] [address] [place] Start: 11-09-2006 Lipid 1996 panel - S dave or Plasma Parul Zafar MD Work Phone: Start: 10-08-2006 Mammography Jennifer Lobo MD Work Phone: H/O: surgery S/P hysterectomy with oophorectomy Parul Zafar MD Work Phone: Plan of Treatment Date Care Activity Detail Author Start: 05-13-2026 Diabetes Screening Diabetes Screenin [facility] Start: 2026 RSV Vaccine (1 - 1-d ose 75+ series) RSV Vaccine (1 - 1-dose 75+ series) [facility] Start: 11-05-2025 DIABETES SCREEN DIABETES SCREEN [facility] Start: 11-05-2025 Diabetes Screening Diabetes Screenin g [facility] Start: 08-24-2025 End: 08-24-2025 Patient encounter procedure Mammogram Comment on above: Encounter for screen ing mammogram for breast cancer [Z12.31] Annual Start: 05-18-2025 Screening for malign ant neoplasm of breast Mammogram Screening [facility] Start: 03-22-2025 Influenza vaccination Influenz a Vaccine (Season Ended) [facility] Start: 02-19-2025 End: 02-19-2025 Patient encounter procedure 02/19/2025 1:40 PM EDT Office Visit OB/Gynecology [address] [place] [place] [address] Parul Chandra MD [address] [place] [address] 6m f/up OB/Gynecology Comment on above: 6m f/up Start: 02-09-2025 Measurement of respiratory function [facility] Start: 10-11-2024 DIABETES SCREEN DIABETES SCREEN [facility] Start: 09-08-2024 End: 09-08-2024 Patient encounter procedure 09/08/2024 11:20 AM EST Office Visit OB/Gynecology [address] [place] [address] Parul Chandra MD [address] [place] [address] ANNUAl OB/Gynecology Comment on above: ANNUAl Start: 08-21-2024 End: 08-21-2024 Patient encounter procedure 08/21/2024 11:20 AM EST Office Visit OB/Gynecology [address] [place] [place] [address] Parul Chandra MD [address] [place] [address] annual OB/Gynecology Comment on above: annual Start: 07-22-2024 Advance Directive Discussion Advance Directive Discussion [facility] Start: 07-14-2024 End: 07-14-2024 Patient encounter procedure Mammogram Comment on above: ANTONELLA DIAGNOSTIC LEFT CB PER LD US BREAST LTD LEFT C B PER LD Start: 05-18-2024 End: 05-18-2024 Patient encounter procedure 05/18/2024 11:30 AM EDT Appointment Mammogram [address] [place] [address] MAMMO W MEKA Mammogram Comment on above: MAMMO W MEKA Start: 05-17-2024 Mammography Mammogram Screening [facility] Start: 05-17-2024 Screening for malign ant neoplasm of breast Mammogram Screening [facility] Start: 05-12-2024 End: 05-12-2024 Patient encounter procedure 05/12/2024 4:40 PM EDT Appointment MRI Q [address] [address] MRI BRAIN WO/W IVCON for DBS/HIFU Eval MRI Q Comment on above: MRI BRAIN WO/W IVCON for DBS/HIFU Eval Start: 05-12-2024 End: 05-12-2024 Patient encounter procedure 05/12/2024 10:30 AM EDT Office Visit [facility] [address] [place] [address] Bianca Bagley, PhD [address] [place] [address] DBS/HIFU Eval - Psychology [facility] Comment on above: DBS/HIFU Eval - Psyc hology Start: 05-08-2024 End: 05-08-2024 Patient encounter procedure [facility] Comment on above: DBS/HIFU Eval - Vide o Testing DBS/HIFU Eval - Trac aggie appt only DBS/HIFU Eval - Neur osurgery CT BRAIN WO IVCON fo r DBS/HIFU Eval Start: 03-22-2024 Covid-19 Vaccine () Covid-19 Vaccine () [facility] Start: 03-22-2024 Influenza vaccination Influenza Vacc ine (#1) [facility] Start: 01-21-2024 End: 01-21-2024 Patient encounter procedure 01/21/2024 1:40 PM EDT Office Visit OB/Gynecology [address] [place], [place] [id number] Parul Chandra MD [address] [place], [place] [address] FOLLOW UP OB/Gynecology Comment on above: FOLLOW UP Start: 10-02-2023 Covid-19 Vaccine () Covid-19 Vaccine () [facility] Start: 07-22-2023 Advance Directive Discussion Advance Directive Discussion [facility] Start: 05-11-2023 Mammography [facility] Start: 03-22-2023 Covid-19 Vaccine () Covid-19 Vaccine () [facility] Start: 03-22-2023 Influenza vaccination C [facility] Start: 12-02-2022 Adult depression screening assessment DEPRESSION SCREENING [facility] Start: 08-20-2022 COVID-19 VACCINE (5 - Moderna series) COVID-19 VACCINE (5 - Moderna series) [facility] Start: 07-22-2022 ADVANCE DIRECTIVE DISCUSSION ADVANCE DIRECTIVE DISCUSSION [facility] Start: 07-22-2022 DEPRESSION ASSESSMENT DEPRESSION ASS ESSMENT [facility] Start: 10-15-2022 Screening for malign ant neoplasm of cervix Cervical Cancer Screening [facility] Start: 03-22-2022 Influenza vaccination C [facility] Start: 02-27-2022 End: 04-29-2022 Cancer Ag 125 [Units/volume] in Serum or Plasma [facility] Work Phone: Comment on above: Expected: 02/27/2022 , Expires: 04/29/2022 Start: 10-04-2021 COVID-19 VACCINE (4 - Booster for Moderna series) COVID-19 VACCINE (4 - Booster for Moderna series) [facility] Start: 08-01-2021 COVID-19 VACCINE (4 - Booster for Moderna series) COVID-19 VACCINE (4 - Booster for Moderna series) [facility] Start: 07-22-2021 ADVANCE DIRECTIVE DISCUSSION ADVANCE DIRECTIVE DISCUSSION [facility] Start: 07-22-2021 DEPRESSION ASSESSMENT DEPRESSION ASS ESSMENT [facility] Start: 02-16-2016 BONE DENSITY BONE DENSITY [facility] Start: 02-16-2016 Bone Density Screening Bone Density Screening [facility] Start: 02-16-2016 PNEUMOCOCCAL: 65+ (1 - PCV) PNEUMOCOCCAL: 65+ (1 - PCV) [facility] Start: 02-16-2016 PNEUMOVAX AGE 65 AND OVER WITH 5YR LOOKBACK (#1) PNEUMOVAX AGE 65 AND OVER WITH 5YR LOOKBACK (#1) [facility] Start: 02-16-2016 Screening for osteoporosis Bone Density Screening [facility] Start: 01-20-2016 Medicare Annual Wellness Visit Medicare Annual Wellness Visit [facility] Start: 11-10-2011 Lipid 1996 panel - Serum or Plasma Lipid Screening [facility] Start: 11-10-2011 Lipid panel Lipid Screening [facility] Start: 11-10-2011 LIPID SCREEN LIPID SCREEN [facility] Start: 2011 RSV Vaccine (1 - 1-d ose 60+ series) RSV Vaccine (1 - 1-dose 60+ series) [facility] Start: 10-09-2007 Mammography MAMMOGRAM [facility] Start: 2001 SHINGRIX VACCINE (1 of 2) SHINGRIX VACCINE (1 of 2) [facility] Start: 02-16-1996 COLOGUARD (FIT-DNA) COLOGUARD (FIT-D NA) [facility] Start: 02-16-1996 Colonoscopy COLONOSCOPY [facility] Start: 02-16-1996 COLORECTAL CANCER SCREENING COLORECTAL CANCER SCREENING [facility] Start: 02-16-[address] COLONOGRAPHY [facility] Start: 02-16-1996 FECAL OCCULT BLOOD FECAL OCCULT BLOO D [facility] Start: 02-16-1996 Screening for malign ant neoplasm of colon [facility] Start: 02-16-1996 [facility] Start: 1970 Urine microalbumin profile [facility] Start: 1969 ANNUAL PCP TEAM HVAC CONTROLS TECHNICIAN MILLIE DISEASE VISIT ANNUAL PCP TEAM CHRONIC DISEASE VISIT [facility] Start: 1969 Anxiety Screening Anxiety Screening [facility] Start: 1969 BP CONTROLLED (<130/80) BP CONTROLLE D (<130/80) [facility] Start: 1969 Depression Screening Depression Scre ening [facility] Start: 1969 HEPATITIS C SCREENING HEPATITIS C SC [facility] Start: 1969 Hepatitis C screening Hepatitis C [facility] Start: 1963 Adult depression screening assessment DEPRESSION SCREENING [facility] Start: 1957 PNEUMOCOCCAL: 65+ (1 - PCV) PNEUMOCOCCAL: 65+ (1 - PCV) [facility] Bacteria identified in Urine by Culture URINE CULTURE Microbiology Routine Dysuria Asymptomatic microscopic hematuria 09/04/2022 11:01 AM EST [facility] Work Phone: End: 04-15-2025 CT Head WO contrast CT BRAIN WO IVCON Radiology Routine Essential tremor 1 Occurrences starting 03/16/2024 until 04/15/2025 [facility] Comment on above: 1 Occurrences starti ng 03/16/2024 until 04/15/2025 DBT Breast - bilater al screening ANTONELLA SCREENING W MEKA Radiology Routine Encounter for screening mammogram for breast cancer 05/18/2024 11:52 AM EDT [facility] Work Phone: End: 09-20-2025 DBT Breast - bilateral screening ANTONELLA SCREENING W MEKA Radiology Routine Encounter for screening mammogram for breast cancer 1 Occurrences starting 08/21/2024 until 09/20/2025 [facility] Work Phone: Comment on above: 1 Occurrences starti ng 08/21/2024 until 09/20/2025 End: 03-29-2023 ANTONELLA SCREENING W MEKA ANTONELLA SCREENING W MEKA Radiology Routine Encounter for screening mammogram for malignant neoplasm of breast 1 Occurrences starting 02/27/2022 until 03/29/2023 [facility] Work Phone: Comment on above: 1 Occurrences starti ng 02/27/2022 until 03/29/2023 End: 06-06-2024 ANTONELLA SCREENING W MEKA ANTONELLA SCREENING W MEKA Radiology Routine Encounter for screening mammogram for malignant neoplasm of breast 1 Occurrences starting 05/08/2023 until 06/06/2024 [facility] Work Phone: Comment on above: 1 Occurrences starti ng 05/08/2023 until 06/06/2024 Measurement of respiratory function [facility] End: 06-18-2025 MG Breast - left Diagnostic for implant ANTONELLA DIAGNOSTIC LEFT Radiology Routine Abnormal mammogram 1 Occurrences starting 05/19/2024 until 06/18/2025 [facility] Work Phone: Comment on above: 1 Occurrences starti ng 05/19/2024 until 06/18/2025 End: 08-13-2025 MG Breast - left Diagnostic for implant ANTONELLA DIAGNOSTIC LEFT Radiology Routine Abnormal mammogram 1 Occurrences starting 07/14/2024 until 08/13/2025 [facility] Work Phone: Comment on above: 1 Occurrences starti ng 07/14/2024 until 08/13/2025 End: 04-15-2025 MR Brain WO and W contrast IV MRI BRAIN WO/W IVCON Radiology Routine Essential tremor 1 Occurrences starting 03/16/2024 until 04/15/2025 [facility] Work Phone: Comment on above: 1 Occurrences starti ng 03/16/2024 until 04/15/2025 End: 06-18-2025 US Breast - left limited US BREAST LTD LEFT Radiology Routine Abnormal mammogram 1 Occurrences starting 05/19/2024 until 06/18/2025 [facility] Comment on above: 1 Occurrences starti ng 05/19/2024 until 06/18/2025 End: 08-13-2025 US Breast - left limited US BREAST LTD LEFT Radiology Routine Abnormal mammogram 1 Occurrences starting 07/14/2024 until 08/13/2025 [facility] Comment on above: 1 Occurrences starti ng 07/14/2024 until 08/13/2025 Walking distance 6 minutes [facility] Immunizations Immunization Date Immunization Notes Care Provider Fa [facility] 05-09-2023 Influenza, injectabl e, Madin Herminia Canine Kidney, quadrivalent with preservative Parul Zafar MD Work Phone: [facility] 05-09-2023 influenza virus vacc ine, unspecified formulation Parul Zafar MD Work Phone: [facility] 07-24-2022 Influenza, injectabl e, Madin Herminia Canine Kidney, quadrivalent with preservative Parul Zafar MD Work Phone: [facility] 07-24-2022 influenza virus vacc ine, unspecified formulation Parul Zafar MD Work Phone: [facility] 08-09-2020 zoster vaccine recombinant Parul Zafar MD Work Phone: [facility] 06-01-2020 influenza (HD-IIV4) vaccine, age 65+ yr, high dose, quadrivalent, PF (FLUZONE HIGH-DOSE) Parul Zafar MD Work Phone: [facility] 05-10-2020 zoster vaccine recombinant Parul Zafar MD Work Phone: [facility] 03-21-2020 pneumococcal conjuga te vaccine, 13 valent Parul Zafar MD Work Phone: [facility] 08-26-2017 pneumococcal polysaccharide vaccine, 23 valent Parul Zafar MD Work Phone: [facility] 05-22-2017 influenza, seasonal, injectable Parul Zafar MD Work Phone: [facility] Payers Date Payer Category Payer Self-pay 2020 Private Health Insurance MMO MED ICARE SUPPLEMENT [id number] 2020 Unknown MMO MMO MEDICARE SUPPLEMENT [id number] 2020-Present [phone] [address] [place] [address] Indemnity [id number] 2020 Unknown MMO MMO MEDICARE SUPPLEMENT [id number] 2020-Present [phone] [address] [place] [address] Indemnity [id number] 2016 Medicare MEDICARE MEDICAR E A AND B [id number] 2016-Present [phone] [address] [address] [place] [address] Medicare [id number] 2016 Medicare [id number] 2016 Medicare [id number] 2015 Medicare [id number] 1950 Unknown [id number] 1951 Unknown [id number] 1950 Unknown [id number] 1951 Unknown [id number] Unknown [id number] Unknown [id number] Unknown [id number] Unknown [id number] Unknown [id number] Social History Date Type Detail Facility Start: 02-27-2022 End: 12-23-2024 Tobacco smoking status NHIS Never smoked tobacco [facility] Work Phone: Start: 11-02-2021 End: 08-21-2024 Alcohol intake Current drinker of alcohol (finding) [facility] Start: 1950 Sex Assigned At Female C [facility] Start: 10-23-2021 End: 05-15-2022 Exposure to SARS-CoV-2 (event) Not sure [facility] Start: 02-27-2022 Tobacco use and exposure Smokeless tobacco non-user [facility] Start: 12-04-2022 End: 11-20-2023 History of Social function [facility] Start: 12-04-2022 End: 11-20-2023 Tobacco use panel [facility] Adult Depression Screening Assessment 3 [facility] Start: 08-14-2021 Gender identity Identifies as female gender (finding) [facility] Clinical Notes 07-17-2007 to 02-04-2025 Telephone Encounter - Sebastien Lemon MD - 01/05/2025 10:53 AM EDTTelephone Encounter - Sebastien Lemon MD - 01/05/2025 10:53 AM EDT Note Date & Type Note Facility 02-04-2025 Procedure note [facility] 01-05-2025 Telephone encount er Note The following approved medication requests have been transmitted electronically. Requested Prescriptions Signed Prescriptions Disp Refills propranolol (INDERAL) 20 mg tablet 180 tablet 1 Sig: Take 1 tablet by mouth two times a day. Authorizing Provider: SEBASTIEN LEMON MD [facility] 01-05-2025 Miscellaneous Notes Formattin g of this note is different from the original. The following approved medication requests have been transmitted electronically. Requested Prescriptions Signed Prescriptions Disp Refills propranolol (INDERAL) 20 mg tablet 180 tablet 1 Sig: Take 1 tablet by mouth two times a day. Authorizing Provider: SEBASTIEN LEMON MD Patient has been identified by name and date of : Yes Last office visit in this department: 11/20/2023 No future visits scheduled RX INSTRUCTIONS: Pharmacy initiated this request. No need to notify patient. Patient phones requesting refills as follows: Requested Prescriptions Pending Prescriptions Disp Refills propranolol (INDERAL) 20 mg tablet 180 tablet 3 Sig: Take 1 tablet by mouth two times a day. Please review and advise. Ashanti Shi MA documented in this encounter [facility] 01-04-2025 Telephone encount er Note Patient has been identified by name and date of : Yes Last office visit in this department: 11/20/2023 No future visits scheduled RX INSTRUCTIONS: Pharmacy initiated this request. No need to notify patient. Patient phones requesting refills as follows: Requested Prescriptions Pending Prescriptions Disp Refills propranolol (INDERAL) 20 mg tablet 180 tablet 3 Sig: Take 1 tablet by mouth two times a day. Please review and advise. Ashanti Shi MA [facility] 12-30-2024 Evaluation note Diagnosis Onset Date Resolution SOB (shortness of breath) acute December 30, 2024 10:13am Obesity, class 2 chronic December 10:13am ETHEL (obstructive sleep apnea) chronic December 30, 2024 10:13am [facility] Work Phone: [phone] 580-890201-31-2025 NoteHNO ID: [id number] Author: PARUL CHANDRA MD Service: ? Author Type: Physician Type: Progress Notes Filed: 08/21/2024 13:12 Note Text: Marketing Operations Specialist offered: Patient declinesSheri Caraballo is a 74 year old who presents for an annual gynecologic exam without complaints. Still with diarrhea - will make appt with GI Postmenopausal: Yes Sexually active: No Last mammogram: 2023 f/u views History of abnormal mammogram: No Sexually active: No History of industrial specialist malignancy: ENDOMETRIAL CANCER OB History T3 L3 SAB0 IAB0 Ectopic0 Multiple0 Live Births0 Comment: 3 vaginal deliveries Computator History LMP: Hysterectomy Age at Menarche: Age at First : Age at Menopause: Computator History Comments: Sexual Activity: Not Currently; No partner data on record Contraception: No contraception data on record PAST MEDICAL HISTORY Diagnosis Date Depression Endometrial cancer (HCC) Hypertension PONV (postoperative nausea and vomiting) Post-operative nausea and vomiting Sleep apnea + cpap PAST SURGICAL HISTORY Procedure Laterality Date ARTHRP KNE CONDYLEANDPLATU MEDIALANDLAT COMPARTMENTS Right 2012 Knee replacement, total CATARACT EXTRACTION HX Bilateral 2019 CHOLECYSTECTOMY 1972 Cholecystectomy DANDC, DIAG AND/OR THERAPEUTIC 08/31/2021 Polypectomy DANDC- simple and complex with atypia REMOVAL OF OVARY/TUBE(S) 10/18/2021 TLH, UTERUS 250 G OR LES 10/18/2021 w/ sentinel lymph node mapping and dissection UNSPECIFIED ORAL SURGERY PROCEDURE, BY REPORT FAMILY HISTORY Problem Relation Age of Onset No Known Problems Father unknown history Breast Cancer Mother 80 other (macular degeneration) Mother No Known Problems Brother Cancer Brother due to exposure in No Known Problems Sister Uterine Cancer No Family History Ovarian cancer No Family History Prostate Cancer No Family History Colon Cancer No Family History SOCIAL HISTORY Social History Tobacco Use Smoking status: Never Smokeless tobacco: Never Vaping Use Vaping status: Never Used Substance Use Topics Alcohol use: Yes Comment: occasionally Drug use: No REVIEW OF SYSTEMS Abdomen: No bloating, early satiety, indigestion, or increased flatulence. ++ diarrhea Bladder: No dysuria, gross hematuria, urinary frequency, urinary urgency, or incontinence Breast: No breast lumps, nipple d/c, overlying skin changes, redness or skin retraction Allergies and current medication updated:Yes SENSITIVE EXAM: The sensitive examination was discussed with the Patient or Patient's Authorized Home Service Technician. As applicable, any other physician, advance practice provider, medical student, or other health professional student that will be observing or involved in the sensitive examination for educational or training purposes was discussed with the Patient or Authorized Home Service Technician. The Patient or Authorized Home Service Technician has agreed to proceed with the sensitive examination. (Sensitive examination includes inspection and/or palpation of the breasts, pelvis, prostate and anorectal regions). EXAM: BP 146/82 Ht 5' 3.5 (1.61m) Wt 221 lb (100.2kg) BMI 38.53 kg/(m2). GENERAL: pleasant, female in no apparent distress HEENT: Normocephalic, atraumatic, mucus membranes moist, and no lesions NECK: Supple, full range of motion, no adenopathy, and thyroid normal DERMATOLOGY: Normal, without lesions, non-icteric, and non-hirsute BREAST: soft, non-tender, symmetric, no dominant mass, normal nipple-areolar complex, no lymphadenopathy, and no nipple discharge CHEST: Normal inspiratory effort ABDOMEN: soft, non-tender, and no masses PELVIC: external genitalia normal, normal Bartholin's glands, urethra, Geneseo's glands, no vulvar lesions, good vaginal support, physiologic discharge present, normal appearing perineal body and perianal region, cervix surgically absent BIMANUAL: no adnexal masses, non-tender, and uterus surgically absent RECTOVAGINAL: deferred. NEURO: alert and oriented x3,exam grossly non-focal EXTREMITIES: normal ASSESSMENT/PLAN: 1) Health maintenance: Pap/HPV screening no longer needed Mammogram ordered Mammogram up to date Nutrition, exercise and routine health maintenance exams reviewed. Colon cancer screening: previously ordered- needs to schedule BMD: done in [place] 2) Follow up one year or sooner as needed Parul Bangura [facility]01-31-2025 History of Present illness Narrative* Parul Chandra MD - 08/21/2024 11:01 AM EST Marketing Operations Specialist offered: Patient declines. Dionna is a 74 year old who presents for an annual gynecologic exam without complaints. Still with diarrhea - will make appt with GI Postmenopausal: Yes Sexually active: No Last mammogram: 2023 f/u views History of abnormal mammogram: No Sexually active: No History of industrial specialist malignancy: ENDOMETRIAL CANCER OB History T3 L3 SAB0 IAB0 Ectopic0 Multiple0 Live Births0 Comment: 3 vaginal deliveries Computator History LMP: Hysterectomy Age at Menarche: Age at First : Age at Menopause: Computator History Comments: Sexual Activity: Not Currently; No partner data on record Contraception: No contraception data on record PAST MEDICAL HISTORY Diagnosis Date Depression Endometrial cancer (HCC) Hypertension PONV (postoperative nausea and vomiting) Post-operative nausea and vomiting Sleep apnea + cpap PAST SURGICAL HISTORY Procedure Laterality Date ARTHRP KNE CONDYLE&PLATU MEDIAL&LAT COMPARTMENTS Right 2013 Knee replacement, total CATARACT EXTRACTION HX Bilateral 2019 CHOLECYSTECTOMY 1972 Cholecystectomy D&C, DIAG AND/OR THERAPEUTIC 08/31/2021 Polypectomy D&C- simple and complex with atypia REMOVAL OF OVARY/TUBE(S) 10/18/2021 TLH, UTERUS 250 G OR LES 10/18/2021 w/ sentinel lymph node mapping and dissection UNSPECIFIED ORAL SURGERY PROCEDURE, BY REPORT FAMILY HISTORY Problem Relation Age of Onset No Known Problems Father unknown history Breast Cancer Mother 80 other (macular degeneration) Mother No Known Problems Brother Cancer Brother due to exposure in No Known Problems Sister Uterine Cancer No Family History Ovarian cancer No Family History Prostate Cancer No Family History Colon Cancer No Family History SOCIAL HISTORY Social History Tobacco Use Smoking status: Never Smokeless tobacco: Never Vaping Use Vaping status: Never Used Substance Use Topics Alcohol use: Yes Comment: occasionally Drug use: No REVIEW OF SYSTEMS Abdomen: No bloating, early satiety, indigestion, or increased flatulence. ++ diarrhea Bladder: No dysuria, gross hematuria, urinary frequency, urinary urgency, or incontinence Breast: No breast lumps, nipple d/c, overlying skin changes, redness or skin retraction Allergies and current medication updated:Yes SENSITIVE EXAM: The sensitive examination was discussed with the Patient or Patient's Authorized Home Service Technician. As applicable, any other physician, advance practice provider, medical student, or other health professional student that will be observing or involved in the sensitive examination for educational or training purposes was discussed with the Patient or Authorized Home Service Technician. The Patient or Authorized Home Service Technician has agreed to proceed with the sensitive examination. (Sensitive examination includes inspection and/or palpation of the breasts, pelvis, prostate and anorectal regions). EXAM: BP 146/82 Ht 5' 3.5 (1.61m) Wt 221 lb (100.2kg) BMI 38.53 kg/(m^2). GENERAL: pleasant, female in no apparent distress HEENT: Normocephalic, atraumatic, mucus membranes moist, and no lesions NECK: Supple, full range of motion, no adenopathy, and thyroid normal DERMATOLOGY: Normal, without lesions, non-icteric, and non-hirsute BREAST: soft, non-tender, symmetric, no dominant mass, normal nipple-areolar complex, no lymphadenopathy, and no nipple discharge CHEST: Normal inspiratory effort ABDOMEN: soft, non-tender, and no masses PELVIC: external genitalia normal, normal Bartholin's glands, urethra, Geneseo's glands, no vulvar lesions, good vaginal support, physiologic discharge present, normal appearing perineal body and perianal region, cervix surgically absent BIMANUAL: no adnexal masses, non-tender, and uterus surgically absent RECTOVAGINAL: deferred. NEURO: alert and oriented x3,exam grossly non-focal EXTREMITIES: normal ASSESSMENT/PLAN: 1) Health maintenance: Pap/HPV screening no longer needed Mammogram ordered Mammogram up to date Nutrition, exercise and routine health maintenance exams reviewed. Colon cancer screening: previously ordered- needs to schedule BMD: done [place] 2) Follow up one year or sooner as needed Parul Bangura MD [facility] History of Present illness Narrative* Nini Sandra RDMS - 07/14/2024 10:30 AM EST Radiology Service Progress Note PATIENT NAME: Dionna Bingham DATE OF SERVICE: July 14, 2024 TIME: 12:01 PM PATIENT IDENTITY VERIFICATION COMPLETED USING TWO (2) IDENTIFIERS: Name and Date of confirmedby patient verbally. FALL SCREENING: Has the patient had 2 falls in the last year or 1 fall with injury or currently using an Ambulatory Assistive Device (Walker, Cane, Wheelchair, Crutches, etc.)? No PATIENT GENDER DATA: Female. status: : No status: NO. PATIENT RELEVANT IMPLANT DATA REVIEWED: Not Applicable PATIENT PRESENTS WITH AN IMPLANTABLE OR ATTACHED MEDIA BUYER: No RADIOLOGY DEPARTMENT: Ultrasound PERIPHERAL IV DATA: Not applicable SIGNED BY: Nini Sandra RDMS RVT July 14, 2024 12:01 PM [facility] NoteHNO ID: [id number] Author: NINI SANDRA RDMS Service: ? Author Type: Cocoa Mill Operator Type: Progress Notes Filed: 07/14/2024 12:02 Note Text: Radiology Service Progress Note PATIENT NAME: Dionna Bingham DATE OF SERVICE: July 14, 2024 TIME: 12:01 PM PATIENT IDENTITY VERIFICATION COMPLETED USING TWO (2) IDENTIFIERS: Name and Date of confirmed by patient verbally. FALL SCREENING: Has the patient had 2 falls in the last year or 1 fall with injury or currently using an Ambulatory Assistive Device (Walker, Cane, Wheelchair, Crutches, etc.)? No PATIENT GENDER DATA: Female. status: : No status: NO. PATIENT RELEVANT IMPLANT DATA REVIEWED: Not Applicable PATIENT PRESENTS WITH AN IMPLANTABLE OR ATTACHED MEDIA BUYER: No RADIOLOGY DEPARTMENT: Ultrasound PERIPHERAL IV DATA: Not applicable SIGNED BY: Nini Sandra RDMS Sarah July 14, 2024 12:01 [facility]12-24-2024 History of Present illness Narrative* Reji Montoya Mammo Tech - 07/14/2024 10:00 AM EST Radiology Service Progress Note PATIENT NAME: Dionna Bingham DATE OF SERVICE: July 14, 2024 TIME: 10:16 AM PATIENT IDENTITY VERIFICATION COMPLETED USING TWO (2) IDENTIFIERS: Name and Date of confirmedby patient verbally. FALL SCREENING: Has the patient had 2 falls in the last year or 1 fall with injury or currently using an Ambulatory Assistive Device (Walker, Cane, Wheelchair, Crutches, etc.)? No PATIENT GENDER DATA: Female. status: : No status: NO. PATIENT RELEVANT IMPLANT DATA REVIEWED: Not Applicable PATIENT PRESENTS WITH AN IMPLANTABLE OR ATTACHED MEDIA BUYER: No RADIOLOGY DEPARTMENT: Mammography PERIPHERAL IV DATA: Not applicable SIGNED BY: Kaitlynn Brock July 14, 2024 10:16 AM [facility]24 NoteHNO ID: [id number] Author: REJI MONTOYA Mammo Tech Service: ? Author Type: Interpreter Type: Progress Notes Filed: 07/14/2024 10:17 Note Text: Radiology Service Progress Note PATIENT NAME: Dionna Bingham DATE OF SERVICE: July 14, 2024 TIME: 10:16 AM PATIENT IDENTITY VERIFICATION COMPLETED USING TWO (2) IDENTIFIERS: Name and Date of confirmed by patient verbally. FALL SCREENING: Has the patient had 2 falls in the last year or 1 fall with injury or currently using an Ambulatory Assistive Device (Walker, Cane, Wheelchair, Crutches, etc.)? No PATIENT GENDER DATA: Female. status: : No status: NO. PATIENT RELEVANT IMPLANT DATA REVIEWED: Not Applicable PATIENT PRESENTS WITH AN IMPLANTABLE OR ATTACHED MEDIA BUYER: No RADIOLOGY DEPARTMENT: Mammography PERIPHERAL IV DATA: Not applicable SIGNED BY: Kaitlynn Brock July 14, 2024 10:16 [facility]10-28-2024 History of Present illness Narrative* Jamarcus Hartley Mammo Tech - 05/18/2024 11:30 AM EDT Radiology Service Progress Note PATIENT NAME: Dionna Bingham DATE OF SERVICE: May 18, 2024 TIME: 11:50 AM PATIENT IDENTITY VERIFICATION COMPLETED USING TWO (2) IDENTIFIERS: Name and Date of confirmedby patient verbally. FALL SCREENING: Has the patient had 2 falls in the last year or 1 fall with injury or currently using an Ambulatory Assistive Device (Walker, Cane, Wheelchair, Crutches, etc.)? No PATIENT GENDER DATA: Female. status: : No status: NO. PATIENT RELEVANT IMPLANT DATA REVIEWED: Not Applicable PATIENT PRESENTS WITH AN IMPLANTABLE OR ATTACHED MEDIA BUYER: No RADIOLOGY DEPARTMENT: Mammography PERIPHERAL IV DATA: Not applicable SIGNED BY: Kaitlynn Dove May 18, 2024 11:50 AM [facility]24 NoteHNO ID: [id number] Author: JAMARCUS HARTLEY Mammo Tech Service: ? Author Type: Technologist Type: Progress Notes Filed: 05/18/2024 11:50 Note Text: Radiology Service Progress Note PATIENT NAME: Dionna Bingham DATE OF SERVICE: May 18, 2024 TIME: 11:50 AM PATIENT IDENTITY VERIFICATION COMPLETED USING TWO (2) IDENTIFIERS: Name and Date of confirmed by patient verbally. FALL SCREENING: Has the patient had 2 falls in the last year or 1 fall with injury or currently using an Ambulatory Assistive Device (Walker, Cane, Wheelchair, Crutches, etc.)? No PATIENT GENDER DATA: Female. status: : No status: NO. PATIENT RELEVANT IMPLANT DATA REVIEWED: Not Applicable PATIENT PRESENTS WITH AN IMPLANTABLE OR ATTACHED MEDIA BUYER: No RADIOLOGY DEPARTMENT: Mammography PERIPHERAL IV DATA: Not applicable SIGNED BY: Kaitlynn Dove May 18, 2024 11:50 [facility]10-28-2024 Telephone encounter Note* Telephone Encounter - Fausto Barnes - 05/18/2024 9:24 AM EDT Patient cancelled second day of DBS/HIFU Eval appointments. Patient's comments on the Web/Mychart cancellations: I do not want to be considered for this procedure now. Sending message to referring provider to notify. [facility]10-28-2024 Miscellaneous Notes* Telephone Encounter - Fausto Barnes - 05/18/2024 9:24 AM EDT Patient cancelled second day of DBS/HIFU Eval appointments. Patient's comments on the Web/Mychart cancellations: I do not want to be considered for this procedure now. Sending message to referring provider to notify. [facility] History of Present illness Narrative* Adrian Valenzuela RT(Tete) - 05/08/2024 2:30 PM EDT Radiology Service Progress Note PATIENT NAME: Dionna Bingham DATE OF SERVICE: May 08, 2024 TIME: 2:36 PM PATIENT IDENTITY VERIFICATION COMPLETED USING TWO (2) IDENTIFIERS: Name and Date of confirmedby patient verbally and Name and Date of confirmed by identification band. FALL SCREENING: Has the patient had 2 falls in the last year or 1 fall with injury or currently using an Ambulatory Assistive Device (Walker, Cane, Wheelchair, Crutches, etc.)? No PATIENT GENDER DATA: Female. status: : No status: NO. PATIENT RELEVANT IMPLANT DATA REVIEWED: Yes PATIENT PRESENTS WITH AN IMPLANTABLE OR ATTACHED MEDIA BUYER: No RADIOLOGY DEPARTMENT: CT; Exam(s) Completed: Brain PERIPHERAL IV DATA: Not applicable SIGNED BY: RT Padmaja(Tete) May 08, 2024 2:36 PM documented in [facility] encounter[facility]10-[facility]-2024 NoteHNO ID: [id number] Author: ADRIAN VALENZUELA RT(R) Service: ? Author Type: Technologist Type: Progress Notes Filed: 05/08/2024 14:37 Note Text: Radiology Service Progress Note PATIENT NAME: Dionna Bingham DATE OF SERVICE: May 08, 2024 TIME: 2:36 PM PATIENT IDENTITY VERIFICATION COMPLETED USING TWO (2) IDENTIFIERS: Name and Date of confirmed by patient verbally and Name and Date of confirmed by identification band. FALL SCREENING: Has the patient had 2 falls in the last year or 1 fall with injury or currently using an Ambulatory Assistive Device (Walker, Cane, Wheelchair, Crutches, etc.)? No PATIENT GENDER DATA: Female. status: : No status: NO. PATIENT RELEVANT IMPLANT DATA REVIEWED: Yes PATIENT PRESENTS WITH AN IMPLANTABLE OR ATTACHED MEDIA BUYER: No RADIOLOGY DEPARTMENT: CT; Exam(s) Completed: Brain PERIPHERAL IV DATA: Not applicable SIGNED BY: Adrian Valenzuela, RT(R) May 08, 2024 2:36 [facility]10-18-2024 NoteHNO ID: [id number] Author: PIETER JOHNSTON PA-C Service: ? Author Type: Physician Manager Perioperative Type: Progress Notes Filed: 05/08/2024 14:40 Note Text: Referring physician: Dr. Lemon CC: tremor HPI: Dionna Bingham presents for the evaluation of her tremor. She reports tremor since childhood that has worsened over time. She is right handed and feels the tremor is a little worse on the left side. Her priority is for treatment on the right side. She feels the internal tremor is improved with meds. She denies a family history of tremor. She does not know if there is improvement with alcohol. She reports difficulties with pouring, cooking, eating, drinking, writing, and crocheting due to tremor. Past Surgical History: PAST SURGICAL HISTORY Procedure Laterality Date ARTHRP KNE CONDYLEANDPLATU MEDIALANDLAT COMPARTMENTS Right 2012 Knee replacement, total CATARACT EXTRACTION HX Bilateral 2019 CHOLECYSTECTOMY 1972 Cholecystectomy DANDC, DIAG AND/OR THERAPEUTIC 08/31/2021 Polypectomy DANDC- simple and complex with atypia REMOVAL OF OVARY/TUBE(S) 10/18/2021 TLH, UTERUS 250 G OR LES 10/18/2021 w/ sentinel lymph node mapping and dissection UNSPECIFIED ORAL SURGERY PROCEDURE, BY REPORT Past Medical History: PAST MEDICAL HISTORY Diagnosis Date Depression Endometrial cancer (HCC) Hypertension PONV (postoperative nausea and vomiting) Post-operative nausea and vomiting Sleep apnea + cpap Current Medications: Current Outpatient Medications Medication Sig escitalopram oxalate (LEXAPRO) 20 mg tablet Take 1 tablet by mouth once daily. propranolol (INDERAL) 20 mg tablet Take 1 tablet by mouth two times a day. losartan (COZAAR) 50 mg tablet Take by mouth once daily. No current facility-administered medications for this visit. Allergies: Primidone Social History: Social History Tobacco Use Smoking status: Never Smokeless tobacco: Never Vaping Use Vaping status: Never Used Substance Use Topics Alcohol use: Yes Comment: occasionally Drug use: No Family History: FAMILY HISTORY Problem Relation Age of Onset No Known Problems Father unknown history Breast Cancer Mother 80 other (macular degeneration) Mother No Known Problems Brother Cancer Brother due to exposure in No Known Problems Sister Uterine Cancer No Family History Ovarian cancer No Family History Prostate Cancer No Family History Colon Cancer No Family History REVIEW OF SYSTEMS: Constitutional: No recent fever or weight loss Skin: Reports psoriasis-usually right ear, elbow, stomach Eyes: Denies complaints of blurred vision and diplopia, Uses glasses and or contact lenses. History of cataract removal ENMT: Denies dysphagia. Does not use dentures. Reports hearing loss, tinnitus, dizziness Endocrine: Denies history of Type l or Type ll diabetes mellitus, Denies history of Thyroid disease CV: Denies history of chest pain, prior PA's, palpitations, heart failure, murmurs,, circulatory problems, leg swelling, hyperlipidemia. Reports HTN Respiratory: Denies history of paroxymal nocturnal dyspnea, recent cough, orthopnea, shortness of breath, COPD, emphysema, asthma, pneumonia, tuberculosis. Reports ETHEL Gastrointestinal: Denies history of nausea, vomiting, diarrhea, constipation, ulcers, heartburn, abdominal pain Genitourinary: Denies hematuria, dysuria, kidney disease. Reports some incontinence-stress Musculoskeletal: Denies complaint of arm / leg weakness, gout. Reports some unstable gait, arthritis Neurological: Denies history of syncope, memory changes, or disorientation Denies complaint of headache Denies complaint of diplopia or decreased visual acuity Denies complaint of arm / leg numbness Denies problem with limb coordination Denies history of seizures and strokes Denies loss of consciousness or other neurologic disease Psychiatric: Denies history of hallucinations, depression, substance abuse. Reports anxiety PHYSICAL EXAMINATION: Vitals: There were no vitals taken for this visit. Constitutional: Well developed, well nourished Skin: [place], warm, dry Head, Face, Neck: Normocephalic/atraumatic Eyes: Clear conjunctiva, non-icteric FOCUSED NEUROLOGIC EXAM Higher integrative function: Oriented to person, place and time, speech clear and fluent, fund of knowledge good CN II: Visual landry full to confrontation CN III, IV, : Pupils equal, round, full extraoccular movements, without nystagmus CN V: masseter 5/5 CN VII: Facial muscles symmetric and strong, No noted facial droop CN VIII: does not hear finger rub bilaterally CN IX: Gag reflex not tested CN X: Palate elevates symmetrically CN XI: Full strength shoulder shrug bilaterally CN XII: Tongue protrusion full and midline Motor: muscle strength 5/5 both upper and lower extremities, muscle tone normal and without evidence of atrophy Cerebellar: gait steady, negative Romberg (more content not included)...[facility] History of Present illness Narrative* Pieter Johnston PA-C - 05/08/2024 12:24 PM EDT Referring physician: Dr. Lemon CC: tremor HPI: Dionna Bingham presents for the evaluation of her tremor. She reports tremor since childhood that has worsened over time. She is right handed and feels the tremor is a little worse on the left side. Her priority is for treatment on the right side. She feels the internal tremor is improved with meds.She denies a family history of tremor. She does not know if there is improvement with alcohol. She reports difficulties with pouring, cooking, eating, drinking, writing, and crocheting due to tremor. Past Surgical History: PAST SURGICAL HISTORY Procedure Laterality Date ARTHRP KNE CONDYLE&PLATU MEDIAL&LAT COMPARTMENTS Right 2012 Knee replacement, total CATARACT EXTRACTION HX Bilateral 2019 CHOLECYSTECTOMY 1972 Cholecystectomy D&C, DIAG AND/OR THERAPEUTIC 08/31/2021 Polypectomy D&C- simple and complex with atypia REMOVAL OF OVARY/TUBE(S) 10/18/2021 TLH, UTERUS 250 G OR LES 10/18/2021 w/ sentinel lymph node mapping and dissection UNSPECIFIED ORAL SURGERY PROCEDURE, BY REPORT Past Medical History: PAST MEDICAL HISTORY Diagnosis Date Depression Endometrial cancer (HCC) Hypertension PONV (postoperative nausea and vomiting) Post-operative nausea and vomiting Sleep apnea + cpap Current Medications: Current Outpatient Medications Medication Sig escitalopram oxalate (LEXAPRO) 20 mg tablet Take 1 tablet by mouth once daily. propranolol (INDERAL) 20 mg tablet Take 1 tablet by mouth two times a day. losartan (COZAAR) 50 mg tablet Take by mouth once daily. No current facility-administered medications for this visit. Allergies: Primidone Social History: Social History Tobacco Use Smoking status: Never Smokeless tobacco: Never Vaping Use Vaping status: Never Used Substance Use Topics Alcohol use: Yes Comment: occasionally Drug use: No Family History: FAMILY HISTORY Problem Relation Age of Onset No Known Problems Father unknown history Breast Cancer Mother 80 other (macular degeneration) Mother No Known Problems Brother Cancer Brother due to exposure in No Known Problems Sister Uterine Cancer No Family History Ovarian cancer No Family History Prostate Cancer No Family History Colon Cancer No Family History REVIEW OF SYSTEMS: Constitutional: No recent fever or weight loss Skin: Reports psoriasis-usually right ear, elbow, stomach Eyes: Denies complaints of blurred vision and diplopia, Uses glasses and or contact lenses. Historyof cataract removal ENMT: Denies dysphagia. Does not use dentures. Reports hearing loss, tinnitus, dizziness Endocrine: Denies history of Type l or Type ll diabetes mellitus, Denies history of Thyroid disease CV: Denies history of chest pain, prior PA's, palpitations, heart failure, murmurs,, circulatory problems, leg swelling, hyperlipidemia. Reports HTN Respiratory: Denies history of paroxymal nocturnal dyspnea, recent cough, orthopnea, shortness of breath, COPD, emphysema, asthma, pneumonia, tuberculosis. Reports ETHEL Gastrointestinal: Denies history of nausea, vomiting, diarrhea, constipation, ulcers, heartburn, abdominal pain Genitourinary: Denies hematuria, dysuria, kidney disease. Reports some incontinence-stress Musculoskeletal: Denies complaint of arm / leg weakness, gout. Reports some unstable gait, arthritis Neurological: Denies history of syncope, memory changes, or disorientation Denies complaint of headache Denies complaint of diplopia or decreased visual acuity Denies complaint of arm / leg numbness Denies problem with limb coordination Denies history of seizures and strokes Denies loss of consciousness or other neurologic disease Psychiatric: Denies history of hallucinations, depression, substance abuse. Reports anxiety PHYSICAL EXAMINATION: Vitals: There were no vitals taken for this visit. Constitutional: Well developed, well nourished Skin: [place], warm, dry Head, Face, Neck: Normocephalic/atraumatic Eyes: Clear conjunctiva, non-icteric FOCUSED NEUROLOGIC EXAM Higher integrative function: Oriented to person, place and time, speech clear and fluent, fund of knowledge good CN II: Visual landry full to confrontation CN III, IV, : Pupils equal, round, full extraoccular movements, without nystagmus CN V: masseter 5/5 CN VII: Facial muscles symmetric and strong, No noted facial droop CN VIII: does not hear finger rub bilaterally CN IX: Gag reflex not tested CN X: Palate elevates symmetrically CN XI: Full strength shoulder shrug bilaterally CN XII: Tongue protrusion full and midline Motor: muscle strength 5/5 both upper and lower extremities, muscle tone normal and without evidence of atrophy Cerebellar: gait steady, negative Romberg MEDICAL DECISION MAKING Data Review: [facility] records reviewed Diagnosis: (G25.0) Essential tremor Impression/Plan: Dionna Bingham is a 74 yr old right handed female with a history of essential tremor since childhood. She reports difficulties with eating, drinking, pouring, cooking, and crocheting due to tremor. Medical management has been insufficient to control her tremor and she would like to consider high intensity focused ultrasound. The procedure were explained to the patient and her daughter, including potential risks and benefits. She would like to have the right side treated first. She does not want toconsider deep brain stimulation, even if she his not a candidate for HIFU. Her medical history is significant for endometrial cancer s/p COLBY. She denies requiring chemo or radiation treatment. She also has ETHEL and a history of postop nausea and vomiting. Pieter Johnston PA-C [facility] NoteHNO ID: [id number] Author: SHANICE DESIR APRN.VISUAL ARTS TEACHER Service: ? Author Type: Nurse Practitioner Type: Progress Notes Filed: 05/08/2024 12:59 Note Text: [facility] - DBS/HIFU VIDEO EVALUATION- ESSENTIAL TREMOR Meir Overton MD [address] [id number] Dear Meir Overton MD: I had the pleasure of seeing Ms. Bingham for follow-up today. As you know she is a 74 year old right-handed female with a history of tremor since all her life . Subjective Previous Plan-11/20/2023 Visit: Try cutting the propranolol dose in half for 2-3 weeks and see if the internal tremor is still manageable. - - Interval History: Interested in HIFU for right hand (dominant hand). Not interested in DBS because does not want to have traditional surgery with incisions. Has difficulty writing. Illegible. Has trouble measuring ingredients when cooking. Has trouble eating with utensils. Goals: Handwriting Carrying cup of water Cooking Movement Disorders Medications Schedule - as of the start of the visit: Medications propranolol 10 mg twice daily Lexapro 20 mg Prior Anti-Parkinson Therapies Carbidopa/Levodopa Selegiline Other Movement Disorder Prior Therapies Primidone, Propranolol, Topiramate Questionnaires: ALLERGIES Allergen Reactions Primidone Intolerance Current Outpatient Medications Medication Sig escitalopram oxalate (LEXAPRO) 20 mg tablet Take 1 tablet by mouth once daily. propranolol (INDERAL) 20 mg tablet Take 1 tablet by mouth two times a day. losartan (COZAAR) 50 mg tablet Take by mouth once daily. No current facility-administered medications for this visit. Objective Vital Signs: BP 151/69 (BP Site: Left Arm, BP Position: Sitting, BP Cuff Size: Large Adult) Pulse 62 SpO2 96% Orthostatic Vitals: None for this encounter No LMP recorded. Patient has had a hysterectomy. There is no height or weight on file to calculate BMI. General Physical Examination: She is accompanied by her child. General: Awake, alert, interactive, no acute distress, good nutritional status, normal development, well-kept woman. General Neurological Examination: Neurological Exam Movement Disorders Scales Performed: Jita-[id number]-Jqwzc Tremor Scale Medication OFF/ON OFF Time of Assessment 1115 Time of Last Medication 0630 (yesterday) Last Medication Taken DBS_Right N/A DBS_Left N/A Face Tremor At Rest: 1 - Slight. May be intermittent. Tongue Tremor At Rest: 0 - None. Posture Holdin - Slight. May be intermittent. Voice Tremor Action and Intention: 1 - Slight. May be intermittent. Head Tremor At Rest: 1 - Slight. May be intermittent. Posture Holdin - Slight. May be intermittent. RUE Tremor At Rest: 2 - Moderate amplitude. May be intermittent. Posture Holdin - Moderate amplitude. May be intermittent. Action and Intention: 3 - Marked amplitude. LUE Tremor At Rest: 1 - Slight. May be intermittent. Posture Holdin - Marked amplitude. Action and Intention: 3 - Marked amplitude. Trunk Tremor At Rest: 0 - None. Posture Holdin - None. RLE Tremor At Rest: 1 - Slight. May be intermittent. Posture Holdin - None. Action and Intention: 0 - None. LLE Tremor At Rest: 1 - Slight. May be intermittent. Posture Holdin - None Action and Intention: 0 - None. Tremor Exam Subscore: 21 Handwriting 3 - Marked abnormal. Illegible. Drawing Drawing A - Right 2 - Moderately tremulous or crosses lines frequently. Drawing A - Left 4 - Unable to complete drawing. Drawing B - Right 3 - Accomplishes the task with great difficulty. Many errors. Drawing B - Left 4 - Unable to complete drawing. Drawing C- Right 2 - Moderately tremulous or crosses lines frequently. Drawing C - Left 4 - Unable to complete drawing. Handwriting Subscore: 22 Pouring Right: 1 - More careful thatn a person without tremors, but no water is spilled. Left: 2 - Spills a small amount of water (up to 10% of the total amount). Pouring Subscore: 3 Speaking 0 - Normal. Feeding (non liquids) 2 - Moderately abnormal. Frequent spills of peas and similar foods. May bring head at least snf to meet food. Liquids to Mouth 2 - Moderately abnormal. Unable to use spoon, uses cup or glass. Hygiene 2 - Moderately abnormal. Able to do everythign, but with errors. Uses electric razor because of tremor. Dressing 2 - Moderately abnormal. Able to do everything, but with errors. Writing 3 - Markedly abnormal. Illegible. Working 2 - Able to do everything, but with errors. Poorer than ususal performance because of tremor. ADL Subscore: 13 TOTAL SCORE 59 Assessment and Plan: Assessment Ms. Bingham is a right-handed 74 year old year old female with tremors for many years, consistent with ET. Previous diagnosis of PD by local neurologist and started on Sinemet with unclear benefit. She has no hyposmia or RBD. Tapered off Sin (more content not included)...[facility] History of Present illness Narrative* Shanice Desir APRN.[facility] - 05/08/2024 10:53 AM EDT Images from the original note were not included. [facility] - DBS/HIFU VIDEO EVALUATION- ESSENTIAL TREMOR Meir Overton MD [address] [facility] [address] [facility] [id number] Dear Meir Overton MD: I had the pleasure of seeing Ms. Bingham for follow-up today. As you know she is a 74 year old right-handed female with a history of tremor since all her life . Subjective Previous Plan-11/20/2023 Visit: Try cutting the propranolol dose in half for 2-3 weeks and see if the internal tremor is still manageable. - - Interval History: Interested in HIFU for right hand (dominant hand). Not interested in DBS because does not want to have traditional surgery with incisions. Has difficulty writing. Illegible. Has trouble measuring ingredients when cooking. Has trouble eating with utensils. Goals: Handwriting Carrying cup of water Cooking Movement Disorders Medications Schedule - as of the start of the visit: Medications propranolol 10 mg twice daily Lexapro 20 mg Prior Anti-Parkinson Therapies Carbidopa/Levodopa Selegiline Other Movement Disorder Prior Therapies Primidone, Propranolol, Topiramate Questionnaires: ALLERGIES Allergen Reactions Primidone Intolerance Current Outpatient Medications Medication Sig escitalopram oxalate (LEXAPRO) 20 mg tablet Take 1 tablet by mouth once daily. propranolol (INDERAL) 20 mg tablet Take 1 tablet by mouth two times a day. losartan (COZAAR) 50 mg tablet Take by mouth once daily. No current facility-administered medications for this visit. Objective Vital Signs: BP 151/69 (BP Site: Left Arm, BP Position: Sitting, BP Cuff Size: Large Adult) Pulse 62 SpO2 96% Orthostatic Vitals: None for this encounter No LMP recorded. Patient has had a hysterectomy. There is no height or weight on file to calculate BMI. General Physical Examination: She is accompanied by her child. General: Awake, alert, interactive, no acute distress, good nutritional status, normal development,well-kept woman. General Neurological Examination: Neurological Exam Movement Disorders Scales Performed: Vgcl-Ovxszf-Zdkuw Tremor Scale Medication OFF/ON OFF Time of Assessment 1115 Time of Last Medication 0630 (yesterday) Last Medication Taken DBS_Right N/A DBS_Left N/A Face Tremor At Rest: 1 - Slight. May be intermittent. Tongue Tremor At Rest: 0 - None. Posture Holdin - Slight. May be intermittent. Voice Tremor Action and Intention: 1 - Slight. May be intermittent. Head Tremor At Rest: 1 - Slight. May be intermittent. Posture Holdin - Slight. May be intermittent. RUE Tremor At Rest: 2 - Moderate amplitude. May be intermittent. Posture Holdin - Moderate amplitude. May be intermittent. Action and Intention: 3 - Marked amplitude. LUE Tremor At Rest: 1 - Slight. May be intermittent. Posture Holdin - Marked amplitude. Action and Intention: 3 - Marked amplitude. Trunk Tremor At Rest: 0 - None. Posture Holdin - None. RLE Tremor At Rest: 1 - Slight. May be intermittent. Posture Holdin - None. Action and Intention: 0 - None. LLE Tremor At Rest: 1 - Slight. May be intermittent. Posture Holdin - None Action and Intention: 0 - None. Tremor Exam Subscore: 21 Handwriting 3 - Marked abnormal. Illegible. Drawing Drawing A - Right 2 - Moderately tremulous or crosses lines frequently. Drawing A - Left 4 - Unable to complete drawing. Drawing B - Right 3 - Accomplishes the task with great difficulty. Many errors. Drawing B - Left 4 - Unable to complete drawing. Drawing C- Right 2 - Moderately tremulous or crosses lines frequently. Drawing C - Left 4 - Unable to complete drawing. Handwriting Subscore: 22 Pouring Right: 1 - More careful thatn a person without tremors, but no water is spilled. Left: 2 - Spills a small amount of water (up to 10% of the total amount). Pouring Subscore: 3 Speaking 0 - Normal. Feeding (non liquids) 2 - Moderately abnormal. Frequent spills of peas and similar foods. May bringhead at least snf to meet food. Liquids to Mouth 2 - Moderately abnormal. Unable to use spoon, uses cup or glass. Hygiene 2 - Moderately abnormal. Able to do everythign, but with errors. Uses electric razor because of tremor. Dressing 2 - Moderately abnormal. Able to do everything, but with errors. Writing 3 - Markedly abnormal. Illegible. Working 2 - Able to do everything, but with errors. Poorer than ususal performance because of tremor. ADL Subscore: 13 TOTAL SCORE 59 Assessment and Plan: Assessment Ms. Bingham is a right-handed 74 year old year old female with tremors for many years, consistent with ET. Previous diagnosis of PD by local neurologist and started on Sinemet with unclear benefit. Shehas no hyposmia or RBD. Tapered off Sinemet and no change so likely this is ET and not PD. She didn't tolerate primidone in the past. No improvement with Topamax. She presents today for video evaluation of tremor as part of the presurgical evaluation for HIFU/DBS. She is interested in pursuing HIFU for bilateral tremor control, but understands will be done in stages and would like to have the right hand treated first. She is not interested in DBS. This information will be presented at our multidisciplinary patient care conference where candidacy for a surgical procedure will be discussed. Patient was educated about surgical procedure options today. All questions were answered. The following are the current problems noted and addressed during this visit: Essential tremor (primary encounter diagnosis) Plan 05/08/2024 Visit: Essential Tremor - It was nice to see you today. The videos taken in today's appointment will be shown while your surgical candidacy is discussed during our multidisciplinary conference. You should hear from your neurologist following the meeting. Updated Movement Disorders Medication Schedule: Medications propranolol 10 mg twice daily Lexapro 20 mg Level of service : 43163 (40-68 min). Time spent 44 min on the day of service, which included preparing to see the patient, [id number] patient care, completing clinical documentation, obtaining and/or reviewing separately obtained history, performing a medically appropriate examination, and counseling and educating the patient/family/caregiver. Thank you for allowing me to be part of the clinical care of this patient! I look forward to continued participation in the patient s care with you. Please do not hesitate to call with any questions. Sincerely, Shanice Desir APRN.CHRISTIANE [facility] Telephone encounter Note * Telephone Encounter - Sebastien Lemon MD - 05/01/2024 3:42 PM EDT Done [facility] Miscellaneous Notes* Telephone Encounter - Sebastien Lemon MD - 05/01/2024 3:42 PM EDT Done * Telephone Encounter - Ashanti Shi MA - 05/01/2024 3:34 PM EDT Patient has been identified by name and date of : Yes Last office visit in this department: 11/20/2023 NOV not scheduled RX INSTRUCTIONS: Pharmacy initiated this request. No need to notify patient. Patient phones requesting refills as follows: Requested Prescriptions No prescriptions requested or ordered in this encounter Please review and advise. Ashanti Shi MA documented [facility]10-[facility] Telephone encounter Note * Telephone Encounter - Ashanti Shi MA - 05/01/2024 3:34 PM EDT Patient has been identified by name and date of : Yes Last office visit in this department: 11/20/2023 NOV not scheduled RX INSTRUCTIONS: Pharmacy initiated this request. No need to notify patient. Patient phones requesting refills as follows: Requested Prescriptions No prescriptions requested or ordered in this encounter Please review and advise. Ashanti Shi MA [facility]-23-[facility] Miscellaneous Notes* Telephone Encounter - Sebastien Lemon MD - 03/13/2024 8:37 AM EDT done * Telephone Encounter - Ashanti Shi MA - 03/12/2024 12:48 PM EDT Patient has been identified by name and date of : Yes Last office visit in this department: 11/20/2023 NOV not scheduled RX INSTRUCTIONS: Pharmacy initiated this request. No need to notify patient. Patient phones requesting refills as follows: Requested Prescriptions Pending Prescriptions Disp Refills propranolol (INDERAL) 20 mg tablet 180 tablet 3 Sig: Take 1 tablet by mouth two times a day. Please review and advise. Ashanti Shi MA documented [facility] encounter[facility]08-[facility] Telephone encounter Note * Telephone Encounter - Sebastien Lemon MD - 03/13/2024 8:37 AM EDT done [facility] Telephone encounter Note* Telephone Encounter - Ashanti Shi MA - 03/12/2024 12:48 PM EDT Patient has been identified by name and date of : Yes Last office visit in this department: 11/20/2023 NOV not scheduled RX INSTRUCTIONS: Pharmacy initiated this request. No need to notify patient. Patient phones requesting refills as follows: Requested Prescriptions Pending Prescriptions Disp Refills propranolol (INDERAL) 20 mg tablet 180 tablet 3 Sig: Take 1 tablet by mouth two times a day. Please review and advise. Ashanti Shi MA [facility]08-14-[facility]24 NoteHNO ID: [id number] Author: PARUL CHANDRA MD Service: ? Author Type: Physician Type: Progress Notes Filed: 03/04/2024 09:12 Note Text: Marketing Operations Specialist offered: Patient declines. Dionna Bingham is a 74 year old female who presents for follow up pelvic exam for h/o Endometrial cancer. Per [facility] onc needs pelvic exam Q 6mo for next 5 yrs (until 2028) (Previously q3mo for first 2 yrs). Pt reports no vaginal bleeding, no pain, no changes in BMs or urinary habits. Pt offers no other concerns today. OB History T3 L3 SAB0 IAB0 Ectopic0 Multiple0 Live Births0 Comment: 3 vaginal deliveries Computator History LMP: Hysterectomy Age at Menarche: Age at First : Age at Menopause: Computator History Comments: Sexual Activity: Not Currently; No partner data on record Contraception: No contraception data on record PAST MEDICAL HISTORY No date: Depression No date: Endometrial cancer (HCC) No date: Hypertension No date: PONV (postoperative nausea and vomiting) No date: Post-operative nausea and vomiting No date: Sleep apnea Comment: + cpap PAST SURGICAL HISTORY 2013: ARTHRP KNE CONDYLEANDPLATU MEDIALANDLAT COMPARTMENTS; Right Comment: Knee replacement, total 2019: CATARACT EXTRACTION HX; Bilateral 1972: CHOLECYSTECTOMY Comment: Cholecystectomy 08/31/2021: DANDC, DIAG AND/OR THERAPEUTIC Comment: Polypectomy DANDC- simple and complex with atypia 10/18/2021: REMOVAL OF OVARY/TUBE(S) 10/18/2021: [facility], UTERUS 250 G OR LES Comment: w/ sentinel lymph node mapping and dissection No date: UNSPECIFIED ORAL SURGERY PROCEDURE, BY REPORT FAMILY HISTORY Problem Relation Age of Onset No Known Problems Father unknown history Breast Cancer Mother 80 other (macular degeneration) Mother No Known Problems Brother Cancer Brother due to exposure in No Known Problems Sister Uterine Cancer No Family History Ovarian cancer No Family History Prostate Cancer No Family History Colon Cancer No Family History Social History Tobacco Use Smoking status: Never Smokeless tobacco: Never Vaping Use Vaping Use: Never used Substance Use Topics Alcohol use: Yes Comment: occasionally Drug use: No Current Outpatient Medications Medication Sig escitalopram oxalate (LEXAPRO) 20 mg tablet Take 1 tablet by mouth once daily. propranolol (INDERAL) 20 mg tablet Take 1 tablet by mouth two times a day. losartan (COZAAR) 50 mg tablet Take by mouth once daily. No current facility-administered medications for this visit. Allergies As of Date: 03/04/2024 Allergen Noted Reaction PRIMIDONE 09/29/2021 Intolerance Fully Assessed 03/04/2024 REVIEW OF SYSTEMS Abdomen: No bloating, early satiety, indigestion, or increased flatulence. No abdominal pain, nausea, vomiting, diarrhea, or constipation. Bladder: no dysuira. .. Expanded ROS: GENERAL: Negative for fever Allergies and current medication updated:Yes EXAM: BP 140/82 Wt 218 lb (98.9kg) GENERAL: pleasant, female in no apparent distress HEENT: Normocephalic and atraumatic NECK: full range of motion DERMATOLOGY: Normal and without lesions ABDOMEN: soft, non-tender, and no masses PELVIC: external genitalia normal, normal Bartholin's glands, urethra, Genese[place]'s glands, no vulvar lesions, good vaginal support, physiologic discharge present, normal appearing perineal body and perianal region, cervix surgically absent, no masses at vaginal cuff BIMANUAL: no adnexal masses, non-tender, and no masses NEURO: alert and oriented x3,exam grossly non-focal EXTREMITIES: normal ASSESSMENT AND PLAN: Encounter Diagnosis ICD-10-CM 1. Endometrial cancer (HCC) C54.1 2. Pelvic exam Q6mo until 2028 I spent a total of 20 minutes on the date of the service which included preparing to see the patient, [id number] patient care, completing clinical documentation, obtaining and/or reviewing separately obtained history, performing a medically appropriate examination, and counseling and educating the patient/family/caregiver. Parul Bangura [facility]08-14-2024 History of Present illness Narrative* Parul Chandra MD - 03/04/2024 8:56 AM EDT Marketing Operations Specialist offered: Patient declines. Dionna Bingham is a 74 year old female who presents for follow up pelvic exam for h/o Endometrial cancer. Per [facility] onc needs pelvic exam Q 6mo for next 5 yrs (until 2028) (Previously q3mo for first 2 yrs). Pt reports no vaginal bleeding, no pain, no changes in BMs or urinary habits. Pt offers no other concerns today. OB History T3 L3 SAB0 IAB0 Ectopic0 Multiple0 Live Births0 Comment: 3 vaginal deliveries Computator History LMP: Hysterectomy Age at Menarche: Age at First : Age at Menopause: Computator History Comments: Sexual Activity: Not Currently; No partner data on record Contraception: No contraception data on record PAST MEDICAL HISTORY No date: Depression No date: Endometrial cancer (HCC) No date: Hypertension No date: PONV (postoperative nausea and vomiting) No date: Post-operative nausea and vomiting No date: Sleep apnea Comment: + cpap PAST SURGICAL HISTORY 2013: ARTHRP KNE CONDYLE&PLATU MEDIAL&LAT COMPARTMENTS; Right Comment: Knee replacement, total 2019: CATARACT EXTRACTION HX; Bilateral 1972: CHOLECYSTECTOMY Comment: Cholecystectomy 08/31/2021: D&C, DIAG AND/OR THERAPEUTIC Comment: Polypectomy D&C- simple and complex with atypia 10/18/2021: REMOVAL OF OVARY/TUBE(S) 10/18/2021: TLH, UTERUS 250 G OR LES Comment: w/ sentinel lymph node mapping and dissection No date: UNSPECIFIED ORAL SURGERY PROCEDURE, BY REPORT FAMILY HISTORY Problem Relation Age of Onset No Known Problems Father unknown history Breast Cancer Mother 80 other (macular degeneration) Mother No Known Problems Brother Cancer Brother due to exposure in No Known Problems Sister Uterine Cancer No Family History Ovarian cancer No Family History Prostate Cancer No Family History Colon Cancer No Family History Social History Tobacco Use Smoking status: Never Smokeless tobacco: Never Vaping Use Vaping Use: Never used Substance Use Topics Alcohol use: Yes Comment: occasionally Drug use: No Current Outpatient Medications Medication Sig escitalopram oxalate (LEXAPRO) 20 mg tablet Take 1 tablet by mouth once daily. propranolol (INDERAL) 20 mg tablet Take 1 tablet by mouth two times a day. losartan (COZAAR) 50 mg tablet Take by mouth once daily. No current facility-administered medications for this visit. Allergies As of Date: 03/04/2024 Allergen Noted Reaction PRIMIDONE 09/29/2021 Intolerance Fully Assessed 03/04/2024 REVIEW OF SYSTEMS Abdomen: No bloating, early satiety, indigestion, or increased flatulence. No abdominal pain, nausea, vomiting, diarrhea, or constipation. Bladder: no dysuira. .. Expanded ROS: GENERAL: Negative for fever Allergies and current medication updated:Yes EXAM: BP 140/82 Wt 218 lb (98.9kg) GENERAL: pleasant, female in no apparent distress HEENT: Normocephalic and atraumatic NECK: full range of motion DERMATOLOGY: Normal and without lesions ABDOMEN: soft, non-tender, and no masses PELVIC: external genitalia normal, normal Bartholin's glands, urethra, Geneseo's glands, no vulvar lesions, good vaginal support, physiologic discharge present, normal appearing perineal body and perianal region, cervix surgically absent, no masses at vaginal cuff BIMANUAL: no adnexal masses, non-tender, and no masses NEURO: alert and oriented x3,exam grossly non-focal EXTREMITIES: normal ASSESSMENT AND PLAN: Encounter Diagnosis ICD-10-CM 1. Endometrial cancer (HCC) C54.1 2. Pelvic exam Q6mo until 2028 I spent a total of 20 minutes on the date of the service which included preparing to see the patient, [id number] patient care, completing clinical documentation, obtaining and/or reviewing separately obtained history, performing a medically appropriate examination, and counseling and educating the patient/family/caregiver. Parul Bangura MD [facility] Instructions* Patient Instructions* Sebastien Lemon MD - 11/20/2023 1:58 PM EDT It was a pleasure to see you today. We addressed the following diagnoses: Essential tremor My recommendations are as follows: Try cutting the propranolol dose in half for 2-3 weeks and see if the internal tremor is still manageable. - Movement Disorders Medication Schedule: Medications propranolol 10 mg twice daily Lexapro 20 mg No follow-ups on file. If there are any concerns before your next visit, please call or you can send a message through [employer]. You can also now schedule and select appointments through [employer]. Sebastien Lemon MD documented [facility] NoteHNO ID: [id number] Author: SEBASTIEN LEMON MD Service: ? Author Type: Physician Type: Progress Notes Filed: 11/20/2023 15:56 Note Text: [facility] - FOLLOW UP EVALUATION Meir Overton MD [address] [address] Dear Meir Overton MD: I had the pleasure of seeing Ms. Bingham for follow-up today. As you know she is a 73 year old right-handed female with a history of tremor since all her life . She is seen with a daughter. Subjective Previous Plan-05/22/2023 Visit: Restart propranolol for the internal tremor - Let us know if you want to do the surgical evaluation. Information in the ultrasound procedure is below - Interval History: Propranolol helped the internal tremor. HR was 49 at PCP recently. No change recommended. Rare lightheadedness. Off balance in the morning but not lightheaded. Outside tremors still bother her. Given order for EMG to evaluate for CTS. Tingling right median nerve distribution. Movement Disorders Medications Schedule - as of the start of the visit: Medications propranolol 20 mg twice daily Lexapro 20 mg Prior Anti-Parkinson Therapies Carbidopa/Levodopa Selegiline Other Movement Disorder Prior Therapies Primidone, Propranolol, Topiramate Questionnaires: In addition, the following activities of daily living that may be affected by tremors were evaluated: Speaking: Affected (mild constant) Feeding: Affected (moderate) Bringing Liquids to Mouth: Affected (marked) Hygiene: Affected (mild) Dressing: Affected (mild) Writing: Affected (marked) Working: Affected (moderate) Number of falls in the Last Month: none Mood/Behavior Depression: PHQ-9 Score: 14 usually representing moderate (10-14) depression. Anxiety: Finally, the following table shows the patient's overall global physical and mental health using the PROMIS scale: PROMIS-10 Flowsheet Row Office Visit from 09/18/2022 in Neurology Office Visit from 05/15/2022 in Neurology Global Physical Health T Score 44.9 44.9 Global Mental Health T Score 33.8 36.3 0-10 Standard Pain Scale 5 4 *PROMIS-10 scoring scale: mean = 50, over 50 is above average, under 50 is below average ALLERGIES Allergen Reactions Primidone Intolerance Current Outpatient Medications Medication Sig escitalopram oxalate (LEXAPRO) 20 mg tablet Take 1 tablet by mouth once daily. propranolol (INDERAL) 20 mg tablet Take 1 tablet by mouth two times a day. losartan (COZAAR) 50 mg tablet Take by mouth once daily. No current facility-administered medications for this visit. Objective Vital Signs: BP 171/78 (BP Site: Left Arm, BP Position: Sitting, BP Cuff Size: Large Adult) Pulse (!) 46 Ht 161.3 cm (5' 3.5) Wt 101.3 kg (223 lb 5.2 oz) SpO2 96% BMI 38.94 kg/m? Orthostatic Vitals: None for this encounter Weight: 101.3 kg (223 lb 5.2 oz) Height: 161.3 cm (5' 3.5) No LMP recorded. Patient has had a hysterectomy. Body mass index is 38.94 kg/m?. General Physical Examination: General: Awake, alert, interactive, no acute distress, good nutritional status, normal development, well-kept General Neurological Examination: Neurological Exam Mental Status Awake and alert. Language is fluent with no aphasia. Movement Disorders Scales Performed: MDS-UPDRS Motor subscale condition of exam Medication Off/On/Naiive OFF Time of UPDRS Time of Last Medication 0630 Last Medication Taken Sinemet CR 50/200 DBS Right N/A DBS Left N/A MDS-UPDRS Motor subscale scores Speech 0-Normal. No speech problems. Facial Expression 0-Normal. Normal facial expression. Rigidity Neck 0-Normal. No rigidity. Rigidity Right Upper Extremity 0-Normal. No rigidity. Rigidity Left Upper Extremity 0-Normal. No rigidity. Rigidity Right Lower Extremity 0-Normal. No rigidity. Rigidity Left Lower Extremity 0-Normal. No rigidity. Finger Taps Right 0-Normal. No problems. ` Finger Taps Left 0-Normal. No problems. Hand Movements Right 0-Normal. No problem. Hand Movements Left 0-Normal. No problem. Arm Movements Right 0-Normal. No problems. Arm Movements Left 0-Normal. No problems. Toe Taps Right 0-Normal. No problem. Toe Taps Left 0-Normal. No problem. Leg Agility Right 0-Normal. No problems. Leg Agility Left 0-Normal. No problems. Arise From Chair 0-Normal. No problems. Able to arise quickly without hesitation. Gait 0-Normal. No problems. Gait Freezing 0-Normal. No freezing. Posture Stability 0-Normal. No problems: recovers with one or two steps. Posture 0-Normal. No problems. Body Bradykinesia 0-Normal. No problems. Postural Tremor Hand Right 0-Normal. No tremor. Postural Tremor Hand Left 2-Mild. Tremor is at least 1 but less than 3 cm in amplitude. Kinetic Tremor Right 2-Mild. Tremor is at least 1 but less than 3 cm in amplitude. Kinetic Tremor Left 2-Mild. Tremor is at least 1 but less than 3 cm in amplitude. Rest Tremor Amplit (more content not included)...[facility] History of Present illness Narrative* Sebastien Lemon MD - 11/20/2023 1:40 PM EDT [facility] - FOLLOW UP EVALUATION Meir Overton MD [address] [facility] [address] [facility] [id number] Dear Meir Overton MD: I had the pleasure of seeing Ms. Bingham for follow-up today. As you know she is a 73 year old right-handed female with a history of tremor since all her life . She is seen with a daughter. Subjective Previous Plan-05/22/2023 Visit: Restart propranolol for the internal tremor - Let us know if you want to do the surgical evaluation. Information in the ultrasound procedure is below - Interval History: Propranolol helped the internal tremor. HR was 49 at PCP recently. No change recommended. Rare lightheadedness. Off balance in the morning but not lightheaded. Outside tremors still bother her. Given order for EMG to evaluate for CTS. Tingling right median nerve distribution. Movement Disorders Medications Schedule - as of the start of the visit: Medications propranolol 20 mg twice daily Lexapro 20 mg Prior Anti-Parkinson Therapies Carbidopa/Levodopa Selegiline Other Movement Disorder Prior Therapies Primidone, Propranolol, Topiramate Questionnaires: In addition, the following activities of daily living that may be affected by tremors were evaluated: Speaking: Affected (mild constant) Feeding: Affected (moderate) Bringing Liquids to Mouth: Affected (marked) Hygiene: Affected (mild) Dressing: Affected (mild) Writing: Affected (marked) Working: Affected (moderate) Number of falls in the Last Month: none Mood/Behavior Depression: PHQ-9 Score: 14 usually representing moderate (10-14) depression. Anxiety: Finally, the following table shows the patient's overall global physical and mental health using the PROMIS scale: PROMIS-10 Flowsheet Row Office Visit from 09/18/2022 in Neurology Office Visit from 05/15/2022 in Neurology Global Physical Health T Score 44.9 44.9 Global Mental Health T Score 33.8 36.3 0-10 Standard Pain Scale 5 4 *PROMIS-10 scoring scale: mean = 50, over 50 is above average, under 50 is below average ALLERGIES Allergen Reactions Primidone Intolerance Current Outpatient Medications Medication Sig escitalopram oxalate (LEXAPRO) 20 mg tablet Take 1 tablet by mouth once daily. propranolol (INDERAL) 20 mg tablet Take 1 tablet by mouth two times a day. losartan (COZAAR) 50 mg tablet Take by mouth once daily. No current facility-administered medications for this visit. Objective Vital Signs: BP 171/78 (BP Site: Left Arm, BP Position: Sitting, BP Cuff Size: Large Adult) Pulse (!) 46 Ht 161.3 cm (5' 3.5) Wt 101.3 kg (223 lb 5.2 oz) SpO2 96% BMI 38.94 kg/m Orthostatic Vitals: None for this encounter Weight: 101.3 kg (223 lb 5.2 oz) Height: 161.3 cm (5' 3.5) No LMP recorded. Patient has had a hysterectomy. Body mass index is 38.94 kg/m . General Physical Examination: General: Awake, alert, interactive, no acute distress, good nutritional status, normal development,well-kept General Neurological Examination: Neurological Exam Mental Status Awake and alert. Language is fluent with no aphasia. Movement Disorders Scales Performed: MDS-UPDRS Motor subscale condition of exam Medication Off/On/Naiive OFF Time of UPDRS Time of Last Medication 0630 Last Medication Taken Sinemet CR 50/200 DBS Right N/A DBS Left N/A MDS-UPDRS Motor subscale scores Speech 0-Normal. No speech problems. Facial Expression 0-Normal. Normal facial expression. Rigidity Neck 0-Normal. No rigidity. Rigidity Right Upper Extremity 0-Normal. No rigidity. Rigidity Left Upper Extremity 0-Normal. No rigidity. Rigidity Right Lower Extremity 0-Normal. No rigidity. Rigidity Left Lower Extremity 0-Normal. No rigidity. Finger Taps Right 0-Normal. No problems. ` Finger Taps Left 0-Normal. No problems. Hand Movements Right 0-Normal. No problem. Hand Movements Left 0-Normal. No problem. Arm Movements Right 0-Normal. No problems. Arm Movements Left 0-Normal. No problems. Toe Taps Right 0-Normal. No problem. Toe Taps Left 0-Normal. No problem. Leg Agility Right 0-Normal. No problems. Leg Agility Left 0-Normal. No problems. Arise From Chair 0-Normal. No problems. Able to arise quickly without hesitation. Gait 0-Normal. No problems. Gait Freezing 0-Normal. No freezing. Posture Stability 0-Normal. No problems: recovers with one or two steps. Posture 0-Normal. No problems. Body Bradykinesia 0-Normal. No problems. Postural Tremor Hand Right 0-Normal. No tremor. Postural Tremor Hand Left 2-Mild. Tremor is at least 1 but less than 3 cm in amplitude. Kinetic Tremor Right 2-Mild. Tremor is at least 1 but less than 3 cm in amplitude. Kinetic Tremor Left 2-Mild. Tremor is at least 1 but less than 3 cm in amplitude. Rest Tremor Amplitude Right Upper Extremity 2-Mild. > 1 cm but < 3 cm in maximal amplitude. Rest Tremor Amplitude Left Upper Extremity 1-Slight. < 1 cm in maximal amplitude. Rest Tremor Amplitude Right Lower Extremity 1-Slight. < 1 cm in maximal amplitude. Rest Tremor Amplitude Left Lower Extremity 1-Slight. < 1 cm in maximal amplitude. Rest Tremor Amplitude Lip/Jaw 1-Slight. < 1 cm in maximal amplitude. Rest Tremor Constancy 4-Severe. Tremor at rest is present > 75% of the entire examination period. MDS-UPDRS Motor subscale totals Left Total 6 Right Total 5 Midline Total 1 Tremor Total / 10 16 PIGD Total / 3 0 Overall Total 16 % Change Compared to Last Filed Total Assessment and Plan: Assessment Ms. Bingham is a right-handed 73 year old year old female with tremors for many years, consistent with ET. Previous diagnosis of PD by local neurologist and started on Sinemet with unclear benefit. Shehas no hyposmia or RBD. Tapered off Sinemet and no change so likely this is ET and not PD. She didn't tolerate primidone in the past. No improvement with Topamax. Propranolol seems to help internal but not external tremors. Restarted at last visit and she is more bradycardic but asymptomatic. No recommendations were reportedly made at PCP visit with HR 49. Recommend cutting the propranolol by half and see how internal tremor does. Discussed gabapentin for tremor as next step but she doesn't wish to try additional medications fornow especially since chance of it helping is not high. She is not ready for tremor surgery. The following are the current problems noted and addressed during this visit: Essential tremor Plan 11/20/2023 Visit: Try cutting the propranolol dose in half for 2-3 weeks and see if the internal tremor is still manageable. - - Updated Movement Disorders Medication Schedule: Medications propranolol 10 mg twice daily Lexapro 20 mg Return at or around: 11/19/24 Level of service : 82861 (20-29 min). Time spent 28 min on the day of service, which included preparing to see the patient, [id number] patient care, completing clinical documentation, performing a medically appropriate examination, and counseling and educating the patient/family/caregiver. Thank you for allowing me to be part of the clinical care of this patient! I look forward to continued participation in the patient s care with you. Please do not hesitate to call with any questions. Sincerely, Sebastien Lemon MD documented [facility]11-[facility] History of Present illness Narrative* Sebastien Lemon MD - 05/22/2023 1:21 PM EDT [facility] - FOLLOW UP EVALUATION eMir Overton MD [address] [facility] [address] [facility] [address] Dear Meir Overton MD: I had the pleasure of seeing Ms. Bingham for follow-up today. As you know she is a 73 year old right-handed female with a history of tremor since all her life . She is seen with a daughter. Subjective Previous Plan-11/20/2022 Visit: - reduce propranolol to 10 mg twice daily for 5 days and then discontinue it. - wait a few days then start Topamax as directed on the bottle. Ok to stop increasing the dose if happy with tremors. No more than 50 mg twice daily Interval History: Topamax not helpful and made her feel wobbly. She stopped taking it. Off propranolol her internal tremor is worse. Open to restarting it. Movement Disorders Medications Schedule - as of the start of the visit: Medications propranolol 20 mg twice daily Lexapro 20 mg Prior Anti-Parkinson Therapies Carbidopa/Levodopa Selegiline Other Movement Disorder Prior Therapies Primidone, Propranolol Questionnaires: In addition, the following activities of daily living that may be affected by tremors were evaluated: Speaking: Not affected Feeding: Affected (moderate) Bringing Liquids to Mouth: Affected (marked) Hygiene: Affected (moderate) Dressing: Affected (moderate) Writing: Affected (marked) Working: Affected (moderate) Number of falls in the Last Month: ALLERGIES Allergen Reactions Primidone Intolerance Current Outpatient Medications Medication Sig escitalopram oxalate (LEXAPRO) 20 mg tablet Take 1 tablet by mouth once daily. losartan (COZAAR) 50 mg tablet Take by mouth once daily. propranolol (INDERAL) 20 mg tablet Take 1 tablet by mouth two times a day. No current facility-administered medications for this visit. Objective Vital Signs: Ht 161.3 cm (5' 3.5) Wt 104 kg (229 lb 4.8 oz) SpO2 97% BMI 39.98 kg/m Orthostatic Vitals: Sitting: BP 177/80 Pulse 63 Standing: BP 185/87 Pulse 64 Weight: 104 kg (229 lb 4.8 oz) Height: 161.3 cm (5' 3.5) No LMP recorded. Patient has had a hysterectomy. Body mass index is 39.98 kg/m . General Physical Examination: General: Awake, alert, interactive, no acute distress, good nutritional status, normal development,well-kept General Neurological Examination: Neurological Exam Mental Status Awake and alert. Language is fluent with no aphasia. Motor Bilateral upper extremity action, postural tremors. +mouth tremor. Gait Stable gait without assistive device. Assessment and Plan: Assessment Ms. Bingham is a right-handed 73 year old year old female with tremors for many years, consistent with ET. Previous diagnosis of PD by local neurologist and started on Sinemet with unclear benefit. Shehas no hyposmia or RBD. Tapered off Sinemet and no change so likely this is ET and not PD. She didn't tolerate primidone in the past. At last visit propranolol was stopped due to perceived inefficacy and her internal tremor returned.Topamax was not helpful for her hand tremors and caused side effects. Will restart propranolol for internal tremor which currently bother her more than the external ET. In terms of ET treatment she has exhausted medications most likely to be effective. Discussed surgical options. Gave her the DBS booklet and [facility]. She will let us know if she wants to proceed with the evaluation. The following are the current problems noted and addressed during this visit: Essential tremor (primary encounter diagnosis) Parkinsonism, unspecified parkinsonism type Plan 05/22/2023 Visit: Restart propranolol for the internal tremor - Let us know if you want to do the surgical evaluation. Information in the ultrasound procedure is below - Updated Movement Disorders Medication Schedule: Medications propranolol 20 mg twice daily Lexapro 20 mg Return at or around: 11/20/23 Level of service : 75804 ( 30-39 min). Time spent 34 min on the day of service, which included preparing to see the patient, [id number] patient care, completing clinical documentation, performing amedically appropriate examination, counseling and educating the patient/family/caregiver, and ordering medications, tests, or procedures. Thank you for allowing me to be part of the clinical care of this patient! I look forward to continued participation in the patient s care with you. Please do not hesitate to call with any questions. Sincerely, Sebastien Lemon MD documented [facility] encounter[facility]11-[facility] Instructions* Patient Instructions* Sebastien Lemon MD - 05/22/2023 1:05 PM EDT It was a pleasure to see you today. We addressed the following diagnoses: Essential tremor (primary encounter diagnosis) My recommendations are as follows: Restart propranolol for the internal tremor - Let us know if you want to do the surgical evaluation. Information in the ultrasound procedure is below - Movement Disorders Medication Schedule: Medications propranolol 20 mg twice daily Lexapro 20 mg No follow-ups on file. If there are any concerns before your next visit, please call or you can send a message through [employer]. You can also now schedule and select appointments through [employer]. Sebastien Lemon MD We have multiple therapies for Essential Tremor and Tremors associated with Parkinson's. The newesttherapy is the High Intensity Focused Ultrasound (HIFU), also called Neuravive . Link to more information on our website: [email or web address] Some determining factors/important information for Focused Ultrasound: Unilateral procedure - only treats tremors on one side of the body Must be off blood thinners for procedure Must have Skull Density Ratio of 0.40 or greater (this is determined by a CT scan performed at [facility]) Must be able to have an MRI done - the procedure is done in an MRI machine Having any implanted devices, such as DBS, pacemaker, cochlear implants, pain pumps/stimulators could disqualify patients from this treatment Some insurances are covering procedure. Prior to any scheduling, we advise patients provide their insurance company with the CPT code used for the procedure. Even if in-network with [facility],some insurances will not cover. CPT code for MRI Focused Ultrasound: 0398T Scheduling process: If you wish to proceed with seeing if you are a good candidate for surgery, this requires a 2-day evaluation which includes appointments for Neuropsychological testing, Psychology consult, an MRI andCT scan, Tremor Video (off and on tremor medications) and a Neurosurgery consult. All appointments are required to be done at [facility] for the evaluation. A few weeks after the 2-day evaluation, the whole medical team meets to discuss your plan of care and treatment options. If you are a good candidate for this therapy you would then be scheduled for the procedure. documented in this encounterWood [facility]10-27-[facility] History of Present illness Narrative* Reji Montoya Mammo Tech - 05/17/2023 1:10 PM EDT Radiology Service Progress Note PATIENT NAME: Dionna Bingham DATE OF SERVICE: May 17, 2023 TIME: 1:06 PM PATIENT IDENTITY VERIFICATION COMPLETED USING TWO (2) IDENTIFIERS: Name and Date of confirmedby patient verbally. FALL SCREENING: Has the patient had 2 falls in the last year or 1 fall with injury or currently using an Ambulatory Assistive Device (Walker, Cane, Wheelchair, Crutches, etc.)? No PATIENT GENDER DATA: Female. status: : No status: NO. PATIENT RELEVANT IMPLANT DATA REVIEWED: Not Applicable RADIOLOGY DEPARTMENT: Mammography PERIPHERAL IV DATA: Not applicable SIGNED BY: Kaitlynn Brock May 17, 2023 1:06 PM documented in this encounter[facility] [facility] History of Present illness Narrative* Parul Chandra MD - 05/08/2023 8:55 AM EDT Marketing Operations Specialist offered: Patient declines. Dionna Bingham is a 73 year old female who presents for follow-up from patient reports no concerns malodorous discharge. She reports no changes with bowel habits diarrhea that she was having at last visit resolved on its own. She is did not follow-up with gastroenterology. Patient has no abdominal pain. OB History T3 L3 SAB0 IAB0 Ectopic0 Multiple0 Live Births0 Comment: 3 vaginal deliveries Computator History LMP: Hysterectomy Age at Menarche: Age at First : Age at Menopause: Computator History Comments: Sexual Activity: Not Currently; No partner data on record Contraception: No contraception data on record PAST MEDICAL HISTORY Diagnosis Date Depression Endometrial cancer (HCC) Hypertension Parkinson's disease (HCC) PONV (postoperative nausea and vomiting) Post-operative nausea and vomiting Sleep apnea + cpap PAST SURGICAL HISTORY Procedure Laterality Date ARTHRP KNE CONDYLE&PLATU MEDIAL&LAT COMPARTMENTS Right 2012 Knee replacement, total CATARACT EXTRACTION HX Bilateral 2019 CHOLECYSTECTOMY 1971 Cholecystectomy D&C, DIAG AND/OR THERAPEUTIC 08/31/2021 Polypectomy D&C- simple and complex with atypia REMOVAL OF OVARY/TUBE(S) 10/18/2021 [facility], UTERUS 250 G OR LES 10/18/2021 w/ sentinel lymph node mapping and dissection UNSPECIFIED ORAL SURGERY PROCEDURE, BY REPORT FAMILY HISTORY Problem Relation Age of Onset No Known Problems Father unknown history Breast Cancer Mother 80 other (macular degeneration) Mother No Known Problems Brother Cancer Brother due to exposure in No Known Problems Sister Uterine Cancer No Family History Ovarian cancer No Family History Prostate Cancer No Family History Colon Cancer No Family History Social History Tobacco Use Smoking status: Never Smokeless tobacco: Never Vaping Use Vaping Use: Never used Substance Use Topics Alcohol use: Yes Comment: occasionally Drug use: No Current Outpatient Medications Medication Sig escitalopram oxalate (LEXAPRO) 20 mg tablet Take 1 tablet by mouth once daily. topiramate (TOPAMAX) 25 mg tablet Start taking 25 mg at bedtime x1 week. Then increase to 25 mg twice daily x1 week. Then increase to 25 mg in AM and 50 mg at bedtime x1 week. Then increase to 50 mg twice daily and stay at that dose losartan (COZAAR) 50 mg tablet Take by mouth once daily. No current facility-administered medications for this visit. Allergies As of Date: 05/08/2023 Allergen Noted Reaction PRIMIDONE 09/29/2021 Intolerance Fully Assessed 12/04/2022 REVIEW OF SYSTEMS Abdomen: No bloating, early satiety, indigestion, or increased flatulence. No abdominal pain, nausea, vomiting, diarrhea, or constipation. Bladder: no dysuria.. Expanded ROS: GENERAL: Negative for fever Allergies and current medication updated:Yes EXAM: BP 140/86 Wt 225 lb (102.1kg) GENERAL: pleasant, female in no apparent distress HEENT: Normocephalic and atraumatic NECK: full range of motion DERMATOLOGY: without lesions ABDOMEN: soft, non-tender, and no masses PELVIC: external genitalia normal, normal Bartholin's glands, urethra, Geneseo's glands, no vulvar lesions, good vaginal support, physiologic discharge present, normal appearing perineal body and perianal region, cervix surgically absent, no cuff masses BIMANUAL: no adnexal masses, non-tender, and uterus surgically absent NEURO: alert and oriented x3,exam grossly non-focal EXTREMITIES: normal ASSESSMENT AND PLAN: Encounter Diagnosis ICD-10-CM 1. Endometrial cancer (HCC) C54.1 2. Encounter for screening mammogram for malignant neoplasm of breast Z12.31 ANTONELLA SCREENING W MEKA 3. Pelvic exam in 3mo and 6mo- will see her for routine yearly in 3 mo. Then after 6 mo will go to routine 6 mo exams for 5 yrs. I spent a total of 20 minutes on the date of the service which included preparing to see the patient, [id number] patient care, completing clinical documentation, obtaining and/or reviewing separately obtained history, performing a medically appropriate examination, counseling and educating the pat ient/family/caregiver, and ordering medications, tests, or procedures. Parul Bangura MD documented [facility] Miscellaneous Notes* Telephone Encounter - Sebastien Lemon MD - 02/21/2023 4:22 PM EDT Done * Telephone Encounter - Ashanti Shi MA - 02/21/2023 2:28 PM EDT Patient has been identified by name and date of : Yes Last office visit in this department: 09/18/2022 NOV 04/10/23 RX INSTRUCTIONS: Pharmacy initiated this request. No need to notify patient. Patient phones requesting refills as follows: Requested Prescriptions Pending Prescriptions Disp Refills escitalopram oxalate (LEXAPRO) 20 mg tablet 90 tablet 1 Sig: Take 1 tablet by mouth once daily. Please review and advise. Ashanti Shi MA documented in this encounterWood [facility]05-16-[facility] History of Present illness Narrative* Parul Zafar MD - 12/04/2022 8:59 AM EDT Marketing Operations Specialist offered: Patient declines. Dionna Bingham is a 72 year old female who presents for follow-up status post total laparoscopic hysterectomy/BSO for endometrial cancer FIGO grade 1. Patient is doing well today. Patient does report increase in bloating, diarrhea and to the point of almost having rectal incontinence. Patient statesthis is new for her. She states she has recently changed her diet to include more fruit and vegetables. No other recent changes. No vaginal bleeding no urinary symptoms. OB History T3 L3 SAB0 IAB0 Ectopic0 Multiple0 Live Births0 Comment: 3 vaginal deliveries Computator History LMP: Hysterectomy Age at Menarche: Age at First : Age at Menopause: Computator History Comments: Sexual Activity: Not Currently; No partner data on record Contraception: No contraception data on record PAST MEDICAL HISTORY Diagnosis Date Depression Endometrial cancer (HCC) Hypertension Parkinson's disease (HCC) PONV (postoperative nausea and vomiting) Post-operative nausea and vomiting Sleep apnea + cpap PAST SURGICAL HISTORY Procedure Laterality Date ARTHRP KNE CONDYLE&PLATU MEDIAL&LAT COMPARTMENTS Right 2013 Knee replacement, total CATARACT EXTRACTION HX Bilateral 2019 CHOLECYSTECTOMY 1972 Cholecystectomy D&C, DIAG AND/OR THERAPEUTIC 08/31/2021 Polypectomy D&C- simple and complex with atypia REMOVAL OF OVARY/TUBE(S) 10/18/2021 [facility], UTERUS 250 G OR LES 10/18/2021 w/ sentinel lymph node mapping and dissection UNSPECIFIED ORAL SURGERY PROCEDURE, BY REPORT FAMILY HISTORY Problem Relation Age of Onset No Known Problems Father unknown history Breast Cancer Mother 80 other (macular degeneration) Mother No Known Problems Brother Cancer Brother due to exposure in No Known Problems Sister Uterine Cancer No Family History Ovarian cancer No Family History Prostate Cancer No Family History Colon Cancer No Family History Social History Tobacco Use Smoking status: Never Smokeless tobacco: Never Vaping Use Vaping Use: Never used Substance Use Topics Alcohol use: Yes Comment: occasionally Drug use: No Current Outpatient Medications Medication Sig topiramate (TOPAMAX) 25 mg tablet Start taking 25 mg at bedtime x1 week. Then increase to 25 mg twice daily x1 week. Then increase to 25 mg in AM and 50 mg at bedtime x1 week. Then increase to 50 mg twice daily and stay at that dose escitalopram oxalate (LEXAPRO) 20 mg tablet Take 1 tablet by mouth once daily. losartan (COZAAR) 50 mg tablet Take by mouth once daily. No current facility-administered medications for this visit. Allergies As of Date: 12/04/2022 Allergen Noted Reaction PRIMIDONE 09/29/2021 Intolerance Fully Assessed 11/20/2022 REVIEW OF SYSTEMS Abdomen: see hpi Bladder: no dysuria .. Expanded ROS: GENERAL: Negative for fever Allergies and current medication updated:Yes EXAM: BP 158/80 Wt 229 lb (103.9kg) GENERAL: pleasant, female in no apparent distress HEENT: Normocephalic and atraumatic NECK: full range of motion ABDOMEN: soft, non-tender, and no masses PELVIC: external genitalia normal, normal Bartholin's glands, urethra, Geneseo's glands, no vulvar lesions, good vaginal support, physiologic discharge present, normal appearing perineal body and perianal region, cervix surgically absent BIMANUAL: no adnexal masses, non-tender, uterus surgically absent, and no masses appreciated at cuff. NEURO: alert and oriented x3,exam grossly non-focal ASSESSMENT AND PLAN: Encounter Diagnosis ICD-10-CM 1. Endometrial cancer (HCC) C54.1 2. Diarrhea, unspecified type R19.7 CONSULT TO GASTROENTEROLOGY 3. Bloating R14.0 CONSULT TO GASTROENTEROLOGY 4. Rectal sphincter incontinence R15.9 CONSULT TO GASTROENTEROLOGY 5. Plan for f/u pelvic exam every 3mo x 2 years (09/2023) then q6mo x 5 yrs. I spent a total of 20 minutes on the date of the service which included preparing to see the patient, [id number] patient care, completing clinical documentation, obtaining and/or reviewing separately obtained history, performing a medically appropriate examination, counseling and educating the pat ient/family/caregiver, and ordering medications, tests, or procedures Medical Decision Making: Medical Decision Making Level: 1 - N/A Parul Bangura MD documented in this encounterWood [facility]05-07-[facility] History of Present illness Narrative* Sebastien Lemon MD - 11/25/2022 4:24 PM EDT [facility] - FOLLOW UP EVALUATION Meir Overton MD [address] [id number] Dear Meir Overton MD: I had the pleasure of seeing Ms. Bingham for follow-up today. As you know she is a 72 year old right-handed female with a history of tremor since all her life . She is seen with a daughter. Subjective Previous Plan-09/18/2022 Visit with SS: For one week, reduce your carbidopa/levodopa to the smaller tablet (25/100). Take this four times aday at the same times you have been taking it. Let me know via [employer]hart how you feel after this reduction. Is anxiety any different? Are tremors any worse? Is walking changed? After you let me know how you are doing, we will make a further decision on what to do with carbidopa/levodopa. After that week, we will start propranolol to see how your essential tremors respond. Follow up with Dr. Lemon in 2-3 months. Interested in clinical research? Not currently Interval History: Since her last visit she tapered off Sinemet with no change. Also changes to propranolol and no improvement in tremor. Movement Disorders Medications Schedule - as of the start of the visit: Medications propranolol 20 mg twice daily Lexapro 20 mg Prior Anti-Parkinson Therapies Carbidopa/Levodopa Selegiline Other Movement Disorder Prior Therapies Primidone, Propranolol Questionnaires: In addition, the following areas that may be affected by abnormal involuntary movements were evaluated: Daily activities Difficulties with eating: Yes (mild) Difficulties in dressin (none) Difficulties with hygiene activities: 0 (none) Difficulties with handwriting: Yes (severe) Difficulties with doing hobbies and other activities: Yes (severe) Difficulties turning in bed: 0 (none) Difficulties getting out of bed, car or chair: Yes (slight) Tremors/Gait/Balance Shaking or tremors: Yes (moderate) Walking and balance problems: 0 (none) Number of falls in the Last Month: Gait freezin (none) Autonomic/Pain Lightheadeness on standin (none) Urinary problems: Yes (mild) Constipation problems: 0 (none) Pain and other sensations: Yes (slight) Speech/Swallowing Speech problems: 0 (none) Droolin (none) Chewing and swallowing problems: 0 (none) Sleep/Fatigue Sleep problems: Yes (mild) Daytime sleepiness: Yes (mild) Fatigue: Yes (slight) Mood/Behavior Depression: PHQ-9 Score: 11 usually representing moderate (10-14) depression. Anxiety: DIPESH-7 Total Score: 3 usually representing no significant (0-4) anxiety. Finally, the following table shows the patient's overall global physical and mental health using the PROMIS scale: PROMIS-10 Flowsheet Row Office Visit from 09/18/2022 in Neurology Office Visit from 05/15/2022 in Neurology Global Physical Health T Score 44.9 44.9 Global Mental Health T Score 33.8 36.3 0-10 Standard Pain Scale 5 4 *PROMIS-10 scoring scale: mean = 50, over 50 is above average, under 50 is below average ALLERGIES Allergen Reactions Primidone Intolerance Current Outpatient Medications Medication Sig escitalopram oxalate (LEXAPRO) 20 mg tablet Take 1 tablet by mouth once daily. losartan (COZAAR) 50 mg tablet Take by mouth once daily. topiramate (TOPAMAX) 25 mg tablet Start taking 25 mg at bedtime x1 week. Then increase to 25 mg twice daily x1 week. Then increase to 25 mg in AM and 50 mg at bedtime x1 week. Then increase to 50 mg twice daily and stay at that dose No current facility-administered medications for this visit. Objective Vital Signs: BP 173/70 (BP Site: Left Arm, BP Position: Sitting, BP Cuff Size: Regular Adult) Pulse (!) 57 Ht 160 cm (5' 3) SpO2 94% BMI 39.95 kg/m Orthostatic Vitals: None for this encounter Height: 160 cm (5' 3) No LMP recorded. Patient has had a hysterectomy. Body mass index is 39.95 kg/m . General Physical Examination: General: Awake, alert, interactive, no acute distress, good nutritional status, normal development,well-kept General Neurological Examination: Neurological Exam Mental Status Awake and alert. Language is fluent with no aphasia. Movement Disorders Scales Performed: MDS-UPDRS Motor subscale condition of exam Medication Off/On/Naiive OFF Time of UPDRS Time of Last Medication 0630 Last Medication Taken DBS Right N/A DBS Left N/A MDS-UPDRS Motor subscale scores Speech 0-Normal. No speech problems. Facial Expression 0-Normal. Normal facial expression. Rigidity Neck 0-Normal. No rigidity. Rigidity Right Upper Extremity 0-Normal. No rigidity. Rigidity Left Upper Extremity 0-Normal. No rigidity. Rigidity Right Lower Extremity 0-Normal. No rigidity. Rigidity Left Lower Extremity 0-Normal. No rigidity. Finger Taps Right 0-Normal. No problems. ` Finger Taps Left 0-Normal. No problems. Hand Movements Right 0-Normal. No problem. Hand Movements Left 0-Normal. No problem. Arm Movements Right 0-Normal. No problems. Arm Movements Left 0-Normal. No problems. Toe Taps Right 0-Normal. No problem. Toe Taps Left 0-Normal. No problem. Leg Agility Right 0-Normal. No problems. Leg Agility Left 0-Normal. No problems. Arise From Chair 0-Normal. No problems. Able to arise quickly without hesitation. Gait 0-Normal. No problems. Gait Freezing 0-Normal. No freezing. Posture Stability 0-Normal. No problems: recovers with one or two steps. Posture 0-Normal. No problems. Body Bradykinesia 0-Normal. No problems. Postural Tremor Hand Right 0-Normal. No tremor. Postural Tremor Hand Left 2-Mild. Tremor is at least 1 but less than 3 cm in amplitude. Kinetic Tremor Right 2-Mild. Tremor is at least 1 but less than 3 cm in amplitude. Kinetic Tremor Left 2-Mild. Tremor is at least 1 but less than 3 cm in amplitude. Rest Tremor Amplitude Right Upper Extremity 2-Mild. > 1 cm but < 3 cm in maximal amplitude. Rest Tremor Amplitude Left Upper Extremity 1-Slight. < 1 cm in maximal amplitude. Rest Tremor Amplitude Right Lower Extremity 1-Slight. < 1 cm in maximal amplitude. Rest Tremor Amplitude Right Lower Extremity 1-Slight. < 1 cm in maximal amplitude. Rest Tremor Amplitude Lip/Jaw 1-Slight. < 1 cm in maximal amplitude. Rest Tremor Constancy 4-Severe. Tremor at rest is present > 75% of the entire examination period. MDS-UPDRS Motor subscale totals Left Total 6 Right Total 5 Midline Total 1 Tremor Total / 10 16 PIGD Total / 3 0 Overall Total 16 % Change Compared to Last Filed Total Assessment and Plan: Assessment Ms. Bingham is a right-handed 72 year old year old female with tremors for many years, consistent with ET. Previous diagnosis of PD by local neurologist and started on Sinemet with unclear benefit. Shehas no hyposmia or RBD. Tapered off Sinemet and no change so likely this is ET and not PD. No improvement with propranolol so will taper off. Try Topamax for tremors. The following are the current problems noted and addressed during this visit: Essential tremor (primary encounter diagnosis) Plan 11/20/2022 Visit: - reduce propranolol to 10 mg twice daily for 5 days and then discontinue it. - wait a few days then start Topamax as directed on the bottle. Ok to stop increasing the dose if happy with tremors. No more than 50 mg twice daily Updated Movement Disorders Medication Schedule: Medications Topamax 25 mg 2 2 Lexapro 20 mg Return at or around: 03/23/23 Medical Decision Making: Problems: Moderate: 1+ chronic illnesses with change Risk: Moderate: Drug management Medical Decision Making Level: 4 - Moderate Thank you for allowing me to be part of the clinical care of this patient! I look forward to continued participation in the patient s care with you. Please do not hesitate to call with any questions. Sincerely, Sebastien Lemon MD documented [facility] this encounterWood [facility]05-02-2023 Instructions* Patient Instructions* Sebastien Lemon MD - 11/20/2022 2:56 PM EDT It was a pleasure to see you today. We addressed the following diagnoses: Essential tremor (primary encounter diagnosis) My recommendations are as follows: - reduce propranolol to 10 mg twice daily for 5 days and then discontinue it. - wait a few days then start Topamax as directed on the bottle. Ok to stop increasing the dose if happy with tremors. No more than 50 mg twice daily No follow-ups on file. If there are any concerns before your next visit, please call or you can send a message through [employer]. You can also now schedule and select appointments through [employer]. Sebastien Lemon MD documented in this encounterWood [facility]02-14-2023 History of Present illness Narrative* Parul Zafar MD - 09/04/2022 9:34 AM EST uChaperone offered: Patient declines. Dionna Bingham is a 72 year old female who presents for follow-up s/p Hysterectomy with BSO for endometrial FIGO grade 1 EM cancer. Patient reports is doing well. Patient states approximately 2 weeks ago had some lower abdominal pain and pain when urinating. She states her urine was a foul odor and dark- colored. She states that most of her symptoms have since resolved. Patient denies any vaginal bleeding, pelvic pain, changes with bowel habits or bloating. Patient offers no other concerns today.She is accompanied by her family. OB History T3 L3 SAB0 IAB0 Ectopic0 Multiple0 Live Births0 Comment: 3 vaginal deliveries Computator History LMP: Hysterectomy Age at Menarche: Age at First : Age at Menopause: Computator History Comments: Sexual Activity: Not Currently; No partner data on record Contraception: No contraception data on record PAST MEDICAL HISTORY Diagnosis Date Depression Endometrial cancer (HCC) Hypertension Parkinson's disease (HCC) PONV (postoperative nausea and vomiting) Post-operative nausea and vomiting Sleep apnea + cpap PAST SURGICAL HISTORY Procedure Laterality Date ARTHRP KNE CONDYLE&PLATU MEDIAL&LAT COMPARTMENTS Right 2013 Knee replacement, total CATARACT EXTRACTION HX Bilateral 2019 CHOLECYSTECTOMY 1972 Cholecystectomy D&C, DIAG AND/OR THERAPEUTIC 08/31/2021 Polypectomy D&C- simple and complex with atypia REMOVAL OF OVARY/TUBE(S) 10/18/2021 [facility], UTERUS 250 G OR LES 10/18/2021 w/ sentinel lymph node mapping and dissection UNSPECIFIED ORAL SURGERY PROCEDURE, BY REPORT FAMILY HISTORY Problem Relation Age of Onset No Known Problems Father unknown history Breast Cancer Mother 80 other (macular degeneration) Mother No Known Problems Brother Cancer Brother due to exposure in No Known Problems Sister Uterine Cancer No Family History Ovarian cancer No Family History Prostate Cancer No Family History Colon Cancer No Family History Social History Tobacco Use Smoking status: Never Smokeless tobacco: Never Vaping Use Vaping Use: Never used Substance Use Topics Alcohol use: Yes Comment: occasionally Drug use: No Current Outpatient Medications Medication Sig carbidopa-levodopa (SINEMET) 25-100 mg per tablet Take 0.5 tablets by mouth four times daily. Take WITH Sinemet CR doses. escitalopram oxalate (LEXAPRO) 20 mg tablet Take 1 tablet by mouth once daily. carbidopa-levodopa CR (SINEMET CR) 50-200 mg per tablet Take 1 tablet by mouth four times daily. pantoprazole DR (PROTONIX) 40 mg tablet Take 40 mg by mouth once daily. Aug Betamethasone Dipropionate (DIPROLENE) 0.05 % ointment Apply to affected area as needed. losartan (COZAAR) 50 mg tablet Take by mouth once daily. No current facility-administered medications for this visit. Allergies As of Date: 09/04/2022 Allergen Noted Reaction PRIMIDONE 09/29/2021 Intolerance Fully Assessed 05/15/2022 REVIEW OF SYSTEMS Abdomen: no pain Bladder: ?? Uti 2 weeks ago- dysuria with pain, urine odor . Expanded ROS: GENERAL: Negative for fever Allergies and current medication updated:Yes EXAM: BP 154/84 Wt 222 lb (100.7kg) GENERAL: pleasant, female in no apparent distress HEENT: Normocephalic, atraumatic, mucus membranes moist, and no lesions DERMATOLOGY: Normal, without lesions, non-icteric, and non-hirsute ABDOMEN: soft, non-tender, and no masses PELVIC: external genitalia normal, normal Bartholin's glands, urethra, Geneseo's glands, no vulvar lesions, good vaginal support, physiologic discharge present, normal appearing perineal body and perianal region, cervix surgically absent, no masses at cuff BIMANUAL: no adnexal masses, non-tender, uterus surgically absent, and no masses at cuff NEURO: alert and oriented x3,exam grossly non-focal EXTREMITIES: normal ASSESSMENT AND PLAN: Encounter Diagnosis ICD-10-CM 1. Endometrial cancer (HCC) C54.1 2. Dysuria R30.0 URINE CULTURE 3. Asymptomatic microscopic hematuria R31.21 URINE CULTURE 4. Urine culture to be sent. 5. Follow up in 3 months ( x 2 yrs) then q6mo for 5 yrs with pelvic exams. I spent a total of 20 minutes on the date of the service which included preparing to see the patient, [id number] patient care, completing clinical documentation, obtaining and/or reviewing separately obtained history, performing a medically appropriate examination, and counseling and educating the patient/family/caregiver Medical Decision Making: Medical Decision Making Level: 1 - N/A Parul Bangura MD documented in this encounterWood [facility]11-09-2022 History of Present illness Narrative* Parul Zafar MD - 05/30/2022 9:44 AM EST Dionna Bingham is a 72 year old female who presents for 3-month follow-up status post hysterectomy with BSO for FIGO grade 1 endometrial cancer. Patient reports is doing well no concerns today. Deniesany vaginal bleeding or pain. Reports family members did get screened for gene mutation (RAD51C) and they were negative. OB History T3 L3 SAB0 IAB0 Ectopic0 Multiple0 Live Births0 Comment: 3 vaginal deliveries Computator History LMP: Hysterectomy Age at Menarche: Age at First : Age at Menopause: Computator History Comments: Sexual Activity: Not Currently; No partner data on record Contraception: No contraception data on record PAST MEDICAL HISTORY Diagnosis Date Depression Endometrial cancer (HCC) Hypertension Parkinson's disease (HCC) PONV (postoperative nausea and vomiting) Post-operative nausea and vomiting Sleep apnea + cpap PAST SURGICAL HISTORY Procedure Laterality Date ARTHRP KNE CONDYLE&PLATU MEDIAL&LAT COMPARTMENTS Right 2013 Knee replacement, total CATARACT EXTRACTION HX Bilateral 2019 CHOLECYSTECTOMY 1972 Cholecystectomy D&C, DIAG AND/OR THERAPEUTIC 08/31/2021 Polypectomy D&C- simple and complex with atypia REMOVAL OF OVARY/TUBE(S) 10/18/2021 [facility], UTERUS 250 G OR LES 10/18/2021 w/ sentinel lymph node mapping and dissection UNSPECIFIED ORAL SURGERY PROCEDURE, BY REPORT FAMILY HISTORY Problem Relation Age of Onset No Known Problems Father unknown history Breast Cancer Mother 80 other (macular degeneration) Mother No Known Problems Brother Cancer Brother due to exposure in No Known Problems Sister Uterine Cancer No Family History Ovarian cancer No Family History Prostate Cancer No Family History Colon Cancer No Family History Social History Tobacco Use Smoking status: Never Smokeless tobacco: Never Vaping Use Vaping Use: Never used Substance Use Topics Alcohol use: Yes Comment: occasionally Drug use: No Current Outpatient Medications Medication Sig carbidopa-levodopa (SINEMET) 25-100 mg per tablet Take 0.5 tablets by mouth four times daily. Take WITH Sinemet CR doses. escitalopram oxalate (LEXAPRO) 20 mg tablet Take 1 tablet by mouth once daily. carbidopa-levodopa CR (SINEMET CR) 50-200 mg per tablet Take 1 tablet by mouth four times daily. pantoprazole DR (PROTONIX) 40 mg tablet Take 40 mg by mouth once daily. Aug Betamethasone Dipropionate (DIPROLENE) 0.05 % ointment Apply to affected area as needed. losartan (COZAAR) 50 mg tablet Take by mouth once daily. No current facility-administered medications for this visit. Allergies As of Date: 05/30/2022 Allergen Noted Reaction PRIMIDONE 09/29/2021 Intolerance Fully Assessed 05/15/2022 REVIEW OF SYSTEMS Abdomen: no pain Expanded ROS: GENERAL: Negative for fever Allergies and current medication updated:Yes EXAM: BP 156/72 Wt 220 lb (99.8kg) GENERAL: pleasant, female in no apparent distress HEENT: Normocephalic NECK: full range of motion DERMATOLOGY: Normal and without lesions ABDOMEN: soft, non-tender, and no masses PELVIC: external genitalia normal, normal Bartholin's glands, urethra, Geneseo's glands, no vulvar lesions, good vaginal support, physiologic discharge present, normal appearing perineal body and perianal region, cervix surgically absent BIMANUAL: no adnexal masses, non-tender, and uterus surgically absent NEURO: alert and oriented x3,exam grossly non-focal EXTREMITIES: normal ASSESSMENT AND PLAN: Encounter Diagnosis ICD-10-CM 1. Endometrial cancer, grade I (HCC) C54.1 2. S/P hysterectomy with oophorectomy Z90.710 Z90.721 3. Continue pelvic exam Q3mo x 2 yrs then [id number] x 5 yrs per [facility]. Pt would like to stay in [place] follow up care. I will send chart to Dr. Jensen. I spent a total of 20 minutes on the date of the service which included preparing to see the patient, [id number] patient care, completing clinical documentation, obtaining and/or reviewing separately obtained history, performing a medically appropriate examination, and counseling and educating the patient/family/caregiver Parul Bangura MD documented in this encounterWood [facility]10-25-[facility]22 Instructions* Patient Instructions* Allison Sheppard APRN.VISUAL ARTS TEACHER - 05/15/2022 8:45 AM EDT For your sleep, try taking Melatonin 5 mg over the counter 30 minutes before bed. If this does not help extend your sleep, after one week, move it to when you wake up after four hours and see if it helps you fall back to sleep easier. For your Tremors: We are going to add Sinemet 25/100 immediate release 1/2 tablet to your Sinemet CR that you are taking. Continue taking all at the same times, you will just add the two together foreach dose. Follow up in 4 months Updated Parkinson's Medication Schedule: Medications 630am 1030a 230p 630p Sinemet CR 50/200 1 1 1 1 Sinemet IR 25/100 0.5 0.5 0.5 0.5 Lexapro 20 mg daily documented in this encounterWood [facility] Hospital10-25-2022 History of Present illness Narrative* Allison Sheppard APRN.VISUAL ARTS TEACHER - 05/15/2022 8:12 AM EDT [facility] - FOLLOW UP EVALUATION Sebastien Lemon [address] [facility] [address] [facility] [address] Meir Overton MD [address] [facility] [address] [facility] [id number] I had the pleasure of seeing Ms. Bingham for follow up today. She is a 72 year old right-handed female with a history of tremor since all her life . She is seen with a daughter. Subjective Previous Plan-02/01/2022 Visit: Increase Sinemet to 4 times a day - Lexapro will stay the same - Interval History: She has a hard time telling if her medications are wearing off however she does have periods of anxiety and tremor intermittently throughout the day. She is having trouble with sleep lately as well. She does report that she is always had poor sleep due to her old work schedule, however she only gets about 4 hours each night even though she is retired now. The increase in Lexapro has helped with her irritability. Parkinson's Medication Schedule - as of the start of the visit: Medications 630am 1030a 230p 630p Sinemet CR 50/200 1 1 1 1 Lexapro 10 mg daily Parkinson's Motor Complications Medication benefit onset: 60 minutes Medication duration: 4 hours Wearing off: yes Prior Anti-Parkinson Therapies Carbidopa/Levodopa Selegiline Other Movement Disorder Prior Therapies Primidone Questionnaires In addition, the following areas that may be affected by abnormal involuntary movements were evaluated: Daily activities Difficulties with eating: Yes (moderate) Difficulties in dressin (none) Difficulties with hygiene activities: 0 (none) Difficulties with handwriting: Yes (severe) Difficulties with doing hobbies and other activities: Yes (severe) Difficulties turning in bed: 0 (none) Difficulties getting out of bed, car or chair: 0 (none) Tremors/Gait/Balance Shaking or tremors: Yes (severe) Walking and balance problems: Yes (slight) Number of falls in the Last Month: 0 Gait freezin (none) Autonomic/Pain Lightheadeness on standing: Yes (slight) Urinary problems: Yes (slight) Constipation problems: Yes (slight) Pain and other sensations: Yes (moderate) Speech/Swallowing Speech problems: 0 (none) Droolin (none) Chewing and swallowing problems: 0 (none) Sleep/Fatigue Sleep problems: Yes (moderate) Daytime sleepiness: Yes (mild) Fatigue: Yes (moderate) Mood/Behavior Depression: PHQ-9 Score: 18 usually representing moderately severe (15-19) depression. Anxiety: DIPESH-7 Total Score: 8 usually representing mild (5-9) anxiety. Finally, the following table shows the patient's overall global physical and mental health using the PROMIS scale: PROMIS-10 Flowsheet Row Office Visit from 05/15/2022 in Neurology Office Visit from 12/04/2021 in Neurology Global Physical Health T Score 44.9 42.3 Global Mental Health T Score 36.3 41.1 0-10 Standard Pain Scale 4 3 *PROMIS-10 scoring scale: mean = 50, over 50 is above average, under 50 is below average In addition, the following Parkinson Lifestyle-associated features were evaluated: Conditions Prior to Dx: Depression: No Anxiety: No Melanoma: No Constipation: No Yelling: No Head Trauma: No Habits/exposures Prior to Dx Smoking: Caffeinated coffee (1-cup+): Caffeinated soda/tea (2 cups+): Alcohol (1 bottle/shot/glass+): Exercise (3x/wk+): Ibuprofen use (1x/wk+): Pesticides: Welding: ALLERGIES Allergen Reactions Primidone Intolerance Current Outpatient Medications Medication Sig escitalopram oxalate (LEXAPRO) 20 mg tablet Take 1 tablet by mouth once daily. carbidopa-levodopa CR (SINEMET CR) 50-200 mg per tablet Take 1 tablet by mouth four times daily. pantoprazole DR (PROTONIX) 40 mg tablet Take 40 mg by mouth once daily. Aug Betamethasone Dipropionate (DIPROLENE) 0.05 % ointment Apply to affected area as needed. losartan (COZAAR) 50 mg tablet Take by mouth once daily. carbidopa-levodopa (SINEMET) 25-100 mg per tablet Take 0.5 tablets by mouth four times daily. Take WITH Sinemet CR doses. No current facility-administered medications for this visit. Objective Vital Signs: BP 139/59 (BP Site: Left Arm, BP Position: Sitting, BP Cuff Size: Regular Adult) Pulse 64 Wt 100.7 kg (222 lb) SpO2 97% BMI 38.11 kg/m Orthostatic Vitals: None for this encounter No LMP recorded. Patient has had a hysterectomy. Body mass index is 38.11 kg/m . General Physical Examination: She is accompanied by her child. General: Awake, alert, interactive, no acute distress, good nutritional status, normal development,well-kept Movement Disorders Scales Performed: MDS-UPDRS Motor subscale condition of exam Medication Off/On/Naiive ON Time of UPDRS 08 Time of Last Medication 629 Last Medication Taken Sinemet 25/100 DBS Right N/A DBS Left N/A MDS-UPDRS Motor subscale scores Speech 0-Normal. No speech problems. Facial Expression 0-Normal. Normal facial expression. Rigidity Neck 0-Normal. No rigidity. Rigidity Right Upper Extremity 1-Slight. Rigidity only detected with activation maneuver. Rigidity Left Upper Extremity 1-Slight. Rigidity only detected with activation maneuver. Rigidity Right Lower Extremity 0-Normal. No rigidity. Rigidity Left Lower Extremity 0-Normal. No rigidity. Finger Taps Right 1-Slight. a) the regular rhythm is broken with one or two interruptions or hesitations of the tapping movement, b) slight slowing, c) the amplitude decrements near the end of the 10taps. Finger Taps Left 1-Slight. a) the regular rhythm is broken with one or two interruptions or hesitations of the tapping movement, b) slight slowing, c) the amplitude decrements near the end of the 10 taps. Hand Movements Right 1-Slight. a) the regular rhythm is broken with one or two interruptions or hesitations of the movement, b) slight slowing, c) the amplitude decrements near the end of the task. Hand Movements Left 0-Normal. No problem. Arm Movements Right 0-Normal. No problems. Arm Movements Left 0-Normal. No problems. Toe Taps Right 1-Slight. a) the regular rhythm is broken with one or two interruptions or hesitations of the tapping movement, b) slight slowing, c) the amplitude decrements near the end of the ten taps. Toe Taps Left 1-Slight. a) the regular rhythm is broken with one or two interruptions or hesitations of the tapping movement, b) slight slowing, c) the amplitude decrements near the end of the ten taps. Leg Agility Right 0-Normal. No problems. Leg Agility Left 0-Normal. No problems. Arise From Chair 0-Normal. No problems. Able to arise quickly without hesitation. Gait 1-Slight. Independent walking with minor gait impairment. Gait Freezing 0-Normal. No freezing. Posture Stability 0-Normal. No problems: recovers with one or two steps. Posture 0-Normal. No problems. Body Bradykinesia 0-Normal. No problems. Postural Tremor Hand Right 1-Slight. Tremor is present but less than 1cm in amplitude. Postural Tremor Hand Left 2-Mild. Tremor is at least 1 but less than 3 cm in amplitude. Kinetic Tremor Right 2-Mild. Tremor is at least 1 but less than 3 cm in amplitude. Kinetic Tremor Left 2-Mild. Tremor is at least 1 but less than 3 cm in amplitude. Rest Tremor Amplitude Right Upper Extremity 1-Slight. < 1 cm in maximal amplitude. Rest Tremor Amplitude Left Upper Extremity 1-Slight. < 1 cm in maximal amplitude. Rest Tremor Amplitude Right Lower Extremity 1-Slight. < 1 cm in maximal amplitude. Rest Tremor Amplitude Right Lower Extremity 1-Slight. < 1 cm in maximal amplitude. Rest Tremor Amplitude Lip/Jaw 0-Normal. No tremor. Rest Tremor Constancy 4-Severe. Tremor at rest is present > 75% of the entire examination period. MDS-UPDRS Motor subscale totals Left Total 9 Right Total 9 Midline Total 1 Tremor Total / 10 15 PIGD Total / 3 1 Overall Total 23 % Change Compared to Last Filed Total Assessment and Plan: Assessment Ms. Bingham is a right-handed 72 year old year old female with tremors for many years. Previous diagnosis of PD 3-4 years ago and she is on Sinemet. 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 Possibly has also developed parkinsonism which is masked by Sinemet. She has no hyposmia or RBD. At this point unclear if she truly has PD, however since selegiline was discontinued at last visit she is experiencing wearing off with increase in tremor and anxiety. She still have intermittent periods of increased tremor throughout the day, as well as having an overall anxious feeling sometimes as well. It seems like potentially the CR is not reliably absorbing. I am suggesting she add a half a tablet of IR to each dose to see if it will help bridge the gap between herdoses. I also suggest she take melatonin 30 minutes before bedtime to see if it helps her sleep anylonger, and if not she can also try taking it after she awakes after her 4 hours of sleep. (This may allow for her to fall back to sleep easier). The following are the current problems noted and addressed during this visit: Parkinsonism, unspecified parkinsonism type (hcc) (primary encounter diagnosis) Plan 05/15/2022 Visit: For your sleep, try taking Melatonin 5 mg over the counter 30 minutes before bed. If this does not help extend your sleep, after one week, move it to when you wake up after four hours and see if it helps you fall back to sleep easier. For your Tremors: We are going to add Sinemet 25/100 immediate release 1/2 tablet to your Sinemet CR that you are taking. Continue taking all at the same times, you will just add the two together foreach dose. Follow up in 4 months Updated Parkinson's Medication Schedule: Medications 630am 1030a 230p 630p Sinemet CR 50/200 1 1 1 1 Sinemet IR 25/100 0.5 0.5 0.5 0.5 Lexapro 20 mg daily Updated Parkinson's Medication Schedule: Medications 630am 1030a 230p 630p Sinemet CR 50/200 1 1 1 1 Sinemet IR 25/100 0.5 0.5 0.5 0.5 Lexapro 20 mg daily Medical Decision Making: Problems: Moderate: 1+ chronic illnesses with change Data: Assessment requiring an independent historian(s) Risk: Moderate: Drug management Medical Decision Making Level: 4 - Moderate Thank you for allowing me to be part of the clinical care of this patient! I look forward to continued participation in the patient s care with you. Please do not hesitate to call with any questions. Sincerely, Allison Sheppard APRN.VISUAL ARTS TEACHER documented in this encounterWood County Hospital10-21-2022 Miscellaneous Notes* Letter - Mammography Coordinator - 05/11/2022 3:54 PM EDT May 11, 2022 PID: [id number] Dionna Bingham [id number] [place] [address] Dear Ms. Bingham, We are pleased to inform you that the results of your recent breast imaging exam on 05/11/2022 are normal. Early detection of cancer is very important. We also understand recommendations regarding breast cancer screening are controversial. Please discuss with your primary care provider which strategy is best for you and whether a mammogram is right for you. Your imaging studies and report will be [facility] at [facility] as part of your permanent medical record and are available for your continuing care. Thank you for allowing us to help in meeting your health care needs. Sincerely, Dr. Bravo Interpreting Radiologist [facility] (Normal over 40) documented in this encounterWood County Hospital10-21-2022 History of Present illness Narrative* RT Deisy(R) - 05/11/2022 12:50 PM EDT Radiology Service Progress Note PATIENT NAME: Dionna Bingham DATE OF SERVICE: May 11, 2022 TIME: 12:49 PM PATIENT IDENTITY VERIFICATION COMPLETED USING TWO (2) IDENTIFIERS: Name and Date of confirmedby patient verbally. FALL SCREENING: Has the patient had 2 falls in the last year or 1 fall with injury or currently using an Ambulatory Assistive Device (Walker, Cane, Wheelchair, Crutches, etc.)? No PATIENT GENDER DATA: Female. status: : No status: NO. PATIENT RELEVANT IMPLANT DATA REVIEWED: Not Applicable RADIOLOGY DEPARTMENT: Mammography PERIPHERAL IV DATA: Not applicable SIGNED BY: RT Deisy(R) May 11, 2022 12:49 PM documented in this encounterWood County Hospital09-14-2022 Miscellaneous Notes* Telephone Encounter - Maria Teresa Bauer RN - 04/04/2022 8:32 AM EDT Fax received from [employer] with Escitalopram approval. Escitalopram 20mg tablet approved through 07/21/[address] [facility] admins to be scanned into patient's chart. TALON Montemayor, RN April 04, 2022 8:33 AM documented in this encounterWood County Hospital08-09-2022 History of Present illness Narrative* Parul Zafar MD - 02/27/2022 9:01 AM EDT Dionna Bingham is a 72 year old female who presents for problem visit follow up after hysterectomy for Endometrial cancer FIGO grade 1. Pt had hysterectomy performed september [address] Jennifer Jensen. Pt reports did well after surgery. Pt is having some incontinence but not too bothered at this time. Denies Bleeding, severe bowel or weight changes. Pt reports more GERD after surgery- seeing PCP for this. OB History T3 L3 SAB0 IAB0 Ectopic0 Multiple0 Live Births0 Comment: 3 vaginal deliveries Computator History LMP: Hysterectomy Age at Menarche: Age at First : Age at Menopause: Computator History Comments: Sexual Activity: Not Currently; No partner data on record Contraception: No contraception data on record PAST MEDICAL HISTORY Diagnosis Date Depression Endometrial cancer (HCC) Hypertension Parkinson's disease (HCC) PONV (postoperative nausea and vomiting) Post-operative nausea and vomiting Sleep apnea + cpap PAST SURGICAL HISTORY Procedure Laterality Date ARTHRP KNE CONDYLE&PLATU MEDIAL&LAT COMPARTMENTS Right 2012 Knee replacement, total CATARACT EXTRACTION HX Bilateral 2018 CHOLECYSTECTOMY 1971 Cholecystectomy D&C, DIAG AND/OR THERAPEUTIC 08/31/2021 Polypectomy D&C- simple and complex with atypia REMOVAL OF OVARY/TUBE(S) 10/18/2021 TLH, UTERUS 250 G OR LES 10/18/2021 w/ sentinel lymph node mapping and dissection UNSPECIFIED ORAL SURGERY PROCEDURE, BY REPORT FAMILY HISTORY Problem Relation Age of Onset No Known Problems Father unknown history Breast Cancer Mother 80 other (macular degeneration) Mother No Known Problems Brother Cancer Brother due to exposure in No Known Problems Sister Uterine Cancer No Family History Ovarian cancer No Family History Prostate Cancer No Family History Colon Cancer No Family History Social History Tobacco Use Smoking status: Never Smokeless tobacco: Never Vaping Use Vaping Use: Never used Substance Use Topics Alcohol use: Yes Comment: occasionally Drug use: No Current Outpatient Medications Medication Sig carbidopa-levodopa CR (SINEMET CR) 50-200 mg per tablet Take 1 tablet by mouth four times daily. escitalopram oxalate (LEXAPRO) 10 mg tablet Take 1 tablet by mouth once daily. pantoprazole DR (PROTONIX) 40 mg tablet Take 40 mg by mouth once daily. losartan (COZAAR) 50 mg tablet Take by mouth once daily. Aug Betamethasone Dipropionate (DIPROLENE) 0.05 % ointment Apply to affected area as needed. No current facility-administered medications for this visit. Allergies As of Date: 02/27/2022 Allergen Noted Reaction PRIMIDONE 09/29/2021 Intolerance Fully Assessed 02/27/2022 REVIEW OF SYSTEMS Abdomen: no bloating. No constipation or diarrhea. Bladder: no dysuria.. Expanded ROS: GENERAL: Negative for fever Allergies and current medication updated:Yes EXAM: BP 136/80 Wt 217 lb (98.4kg) GENERAL: pleasant, female in no apparent distress HEENT: Normocephalic and atraumatic NECK: Supple and full range of motion DERMATOLOGY: Normal and without lesions ABDOMEN: soft, non-tender, and no masses PELVIC: external genitalia normal, normal Bartholin's glands, urethra, Geneseo's glands, no vulvar lesions, good vaginal support, physiologic discharge present, normal appearing perineal body and perianal region, cervix surgically absent, no masses at cuff. BIMANUAL: no adnexal masses, non-tender, and uterus surgically absent NEURO: alert and oriented x3,exam grossly non-focal EXTREMITIES: normal ASSESSMENT AND PLAN: Encounter Diagnosis ICD-10-CM 1. History of endometrial cancer Z85.42 CA 125 BLD 2. Encounter for screening mammogram for malignant neoplasm of breast Z12.31 ANTONELLA SCREENING W MEKA 3. Reviewed recommendations for follow up in 3-6 months for first two years then yearly but will confirm with [facility] what they prefer. 4. Will order CA 125. Reviewed pelvic and bimanual exam recommendations but no need for pap at thistime. 5. I will notify patient any further recommendations from [facility] I spent a total of 20 minutes on the date of the service which included preparing to see the patient, [id number] patient care, completing clinical documentation, obtaining and/or reviewing separately obtained history, performing a medically appropriate examination, counseling and educating the pat ient/family/caregiver, and ordering medications, tests, or procedures. Parul Bangura MD Marketing Operations Specialist offered: Patient declines. documented in this encounterWood County Hospital05-25-2022 Miscellaneous Notes* Telephone Encounter - Nini Villeda [facility] - 12/13/2021 12:56 PM EDT Patient name and was confirmed at initiation of discussion. 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 RAD51C associated cancer risk Women with pathogenic/likely pathogenic variants in RAD51C have >10% lifetime risk of ovarian cancer. At this time, there are no other known cancer risks for men or women with RAD51C pathogenic/likely pathogenic variants although some evidence suggests there may be an increased risk of female breast cancer. Current NCCN guidelines recommend consideration of bilateral salpingo- oophorectomy around age 45-50 y or earlier based on family history. Please keep in mind that the cancer risks are subject to change as more information is learned about the RAD51C gene. Of note, the remainder of the panel was negative. The patient's germline testing was negative for Falcon Syndrome. Patient was encouraged to continue follow up with her healthcare team. Please see [employer] message for further discussion. ADIN Medeiros Licensed, Certified Genetic Counselor documented in this encounterWood County Hospital05-16-2022 Instructions* Patient Instructions* Sebastien Lemon MD - 12/04/2021 5:01 PM EDT It was a pleasure to see you today. We addressed the following diagnoses: Essential tremor (primary encounter diagnosis) My recommendations are as follows: 12/04/2021 Visit: Stop selegiline. Stay on the Sinemet (carbidopa-levodopa ) - In 2 weeks start Lexapro. This is for anxiety and depression. It can take 4-6 weeks to work. If nothelping after that time please let us know and we can increase the dose - Movement Disorders Medication Schedule: 630am 1230pm 630-7P Sinemet CR 50/200 1 1 1 Return in about 3 months (around 03/06/2022) for Can be seen with [facility]. If there are any concerns before your next visit, please call or you can send a message through [employer]. You can also now schedule and select appointments through [employer]. Sebastien Lemon MD documented in this encounterWood County Hospital05-16-2022 History of Present illness Narrative* Sebastien Lemon MD - 12/04/2021 4:10 PM EDT [facility] - NEW PATIENT EVALUATION Marcia Zavala [id number] [place] [address] Meir Overton MD [address] [facility] [[email or web address] [address] [facility] [phone] I had the pleasure of evaluating Ms. Bingham to our clinic today. As you know she is a 71 year old right-handed female who is seen for evaluation of tremor since all her life . She is seen with a daughter. Subjective HISTORY OF PRESENT ILLNESS: Initial HPI Looking for second opinion. Tremors her whole life. Always in her hands with action. Used to be able to control it. After half-way it got worse. [place] like she was shaking on the inside. About 3-4 years ago started on Sinemet.Tremors hadn't changed, just got worse. Didn't notice other symptoms. Developed mouth tremor- lowerjaw. Head tremor better with Sinemet. Sometimes leg tremor. Both sides. Cannot crotchet due to coordination and tremor. 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 Dr. Schulte treated with primidone which she didn't tolerate after 1 dose. Then switched to Sinemet. Helps the internal tremor. Still external tremor that is not much better. If she misses a dose the external tremor gets worse. Selegiline added and not sure it helps anything. Handwriting not helped by Sinemet. No hyposmia. Top 3: internal and external tremors, handwriting. Parkinson's Medications Schedule - as of the start of the visit: 630am 1230pm 630-7P Sinemet CR 50/200 1 1 1 selegiline Prior Anti-Parkinson Therapies Carbidopa/Levodopa Selegiline Other Movement Disorder Prior Therapies Primidone In addition, the following Parkinson-associated features were evaluated: Daily activities Difficulties with eating: Yes (mild) tremor affects sometimes. Cannot carry full cup without spilling. Difficulties in dressing: Yes (slight). slow Difficulties with hygiene activities: Yes (slight). Tiring. Needs a break. Slow. Difficulties with handwriting: Yes (mild). Bad. Scribbles. Might start ok then gets worse. Sometimes small but not consistently. Difficulties with doing hobbies and other activities: Yes (moderate) Difficulties turning in bed: 0 (none) Difficulties getting out of bed, car or chair: 0 (none) Tremors/Gait/Balance Shaking or tremors: Yes (moderate): Walking and balance problems: 0 (none). slow Number of falls in the Last Month: None Gait freezin (none) Autonomic/Pain Lightheadeness on standing: Yes (slight). Stands a couple of seconds before going. Urinary problems: Yes (mild) Constipation problems: Yes (mild)occasional. Pain and other sensations: Yes (moderate): Speech/Swallowing Speech problems: Yes: softer. Flat facial expression Drooling: Yes (mild). Sleeping. not during the day Chewing and swallowing problems: 0 (none) Sleep/Fatigue Problems sleeping at night: Yes (mild). Cannot turn off her mind. Has CPAP, some nights cannot stand it. Sleeps 3-4 hours on a good night. Little naps during the day. Daytime sleepiness: Yes (mild) Fatigue: Yes (moderate) REM sleep behavior disorder: no Restless Legs Syndrome: no Mood/Behavior/Cognition Cognitive impairment: no No Data Recorded Hallucinations and delusions: no Apathy: Depression: PQH-9 = 7 usually representing mild (5-9) depression. Anxiety: DIPESH-7 = 6 usually representing mild (5-9) anxiety. Finally, the following table shows the patient's overall global physical and mental health using the PROMIS scale relative to the previous visit: PROMIS-10 Office Visit from 12/04/2021 in Neurology Global Physical Health T Score 42.3 Global Mental Health T Score 41.1 0-10 Standard Pain Scale 3 *PROMIS-10 scoring scale: mean = 50, over 50 is above average, under 50 is below average Review of Systems Review of Systems Constitutional Positive for Fatigue Negative for Fevers, Night Sweats, Weight Gain and Weight Loss Eyes: Negative Hent: Negative Cardiovascular: Negative Respiratory Positive for SOB with exertion, Cough and Snoring Negative for SOB at rest and Wheezing GI Positive for Heartburn Negative for Blood in Stool, Abdominal Pain, Diarrhea, Constipation and Nausea/Vomiting Positive for Incontinence Negative for Urgency, Impotence and Sexual Dysfunction Endocrine Positive for Heat Intolerance and Excessive Thirst Negative for Menstrual Cycle Irregularities Musculoskeletal Positive for Back Pain, Stiff Joints and Muscle Pain Negative for Joint Swelling Integumentary Positive for Hair Changes Negative for Rashes, Itching and Other Lesions Heme/Lymph Positive for Swelling of Arm or Leg Negative for Prolonged Bleeding and Easy Bruising Allergy/Immunologic: Negative Neurologic: Negative Psychiatric Positive for Stress or Conflicts and Depression Negative for Anxiety, Irritability, Hallucinations and Delusions Patient's Review of Systems has been reviewed with the patient and updated as appropriate. ALLERGIES Allergen Reactions Primidone Intolerance Current Outpatient Medications Medication Sig pantoprazole DR (PROTONIX) 40 mg tablet Take 40 mg by mouth once daily. Aug Betamethasone Dipropionate (DIPROLENE) 0.05 % ointment Apply to affected area as needed. losartan (COZAAR) 50 mg tablet Take by mouth once daily. carbidopa-levodopa CR (SINEMET CR) 50-200 mg per tablet Take 1 tablet by mouth twice daily. No current facility-administered medications for this visit. Past Medical and Surgical History: has a past medical history of Depression, Endometrial cancer (HCC), Hypertension, Parkinson's disease (HCC), PONV (postoperative nausea and vomiting), Post-operative nausea and vomiting, and Sleep apnea. has a past surgical history that includes cholecystectomy (1972); arthrp kne condyle&platu medial&lat compartments (Right, 2013); unspecified oral surgery procedure, by report; cataract extraction hx (Bilateral, 2018); d&c, diag and/or therapeutic (08/31/2021); tlh, uterus 250 g or les (10/18/2021); and removal of ovary/tube(s) (10/18/2021). Social History Tobacco Use Smoking status: Never Smoker Smokeless tobacco: Never Used Vaping Use Vaping Use: Never used Substance Use Topics Alcohol use: Yes Comment: occasionally Drug use: No Family History: family history includes Breast Cancer (age of onset: 80) in her mother; Cancer in her brother; No Known Problems in her brother, father, and sister; macular degeneration in her mother. In addition, the patient denies any family history of PD/parkinsonism, tremor, other involuntary movement disorders. Objective Vital Signs: BP 134/72 (BP Site: Left Arm, BP Position: Sitting, BP Cuff Size: Large Adult) Pulse 82 Ht 162.6 cm (5' 4) Wt 97.5 kg (215 lb) SpO2 97% BMI 36.90 kg/m General Physical Examination: General: Awake, alert, interactive, no acute distress, good nutritional status, normal development,well-kept General Neurological Examination: Neurological Exam Mental Status Awake and alert. Speech is normal. Language is fluent with no aphasia. Fund of knowledge is appropriate for level of education. Cranial Nerves CN III, IV, : Extraocular movements intact bilaterally. CN V: Facial sensation is normal. CN VII: Full and symmetric facial movement. CN VIII: Hearing is normal. CN XI: Shoulder shrug strength is normal. CN XII: Tongue midline without atrophy or fasciculations. Motor Strength is 5/5 throughout all four extremities. No micrographia. Handwriting becomes larger and more tremulous from beginning to end of sentence. Spirals and lines are tremulous with either hand. Sensory Light touch is normal in upper and lower extremities. Intact at toes. Reflexes Right Left Brachioradialis 1+ 1+ Biceps 1+ 1+ Patellar 0 0 Achilles 0 0 Plantar Downgoing Downgoing Coordination Right: Nagnit-hf-dmhu normal. Rapid alternating movement normal. Wbua-ki-jltq normal. Left: Fzicoj-xh-szih normal. Rapid alternating movement normal. Epfj-sa-nwrw normal. Movement Disorders Scales Performed: MDS-UPDRS Motor subscale condition of exam Medication Off/On/Naiive Time of UPDRS Time of Last Medication Last Medication Taken DBS Right DBS Left MDS-UPDRS Motor subscale scores Speech 0-Normal. No speech problems. Facial Expression 1-Slight. Minimal masked facies manifested only by decreased frequency of blinking. Rigidity Neck 1-Slight. Rigidity only detected with activation maneuver. Rigidity Right Upper Extremity 0-Normal. No rigidity. Rigidity Left Upper Extremity 0-Normal. No rigidity. Rigidity Right Lower Extremity 0-Normal. No rigidity. Rigidity Left Lower Extremity 0-Normal. No rigidity. Finger Taps Right 1-Slight. a) the regular rhythm is broken with one or two interruptions or hesitations of the tapping movement, b) slight slowing, c) the amplitude decrements near the end of the 10taps. Finger Taps Left 1-Slight. a) the regular rhythm is broken with one or two interruptions or hesitations of the tapping movement, b) slight slowing, c) the amplitude decrements near the end of the 10 taps. Hand Movements Right 0-Normal. No problem. Hand Movements Left 0-Normal. No problem. Arm Movements Right 0-Normal. No problems. Arm Movements Left 0-Normal. No problems. Toe Taps Right 0-Normal. No problem. Toe Taps Left 0-Normal. No problem. Leg Agility Right 0-Normal. No problems. Leg Agility Left 1-Slight. a) the regular rhythm is broken with one or two interruptions or hesitations of the movement, b) slight slowing, c) the amplitude decrements near the end of the task. Arise From Chair 0-Normal. No problems. Able to arise quickly without hesitation. Gait 0-Normal. No problems. Gait Freezing 0-Normal. No freezing. Posture Stability 0-Normal. No problems: recovers with one or two steps. (deferred) Posture 1-Slight. Not quite erect, but posture could be normal for older person. Body Bradykinesia 0-Normal. No problems. Postural Tremor Hand Right 1-Slight. Tremor is present but less than 1cm in amplitude. Postural Tremor Hand Left 1-Slight. Tremor is present but less than 1cm in amplitude. Kinetic Tremor Right 2-Mild. Tremor is at least 1 but less than 3 cm in amplitude. Kinetic Tremor Left 2-Mild. Tremor is at least 1 but less than 3 cm in amplitude. Rest Tremor Amplitude Right Upper Extremity 1-Slight. < 1 cm in maximal amplitude. Rest Tremor Amplitude Left Upper Extremity 1-Slight. < 1 cm in maximal amplitude. Rest Tremor Amplitude Right Lower Extremity 1-Slight. < 1 cm in maximal amplitude. Rest Tremor Amplitude Right Lower Extremity 1-Slight. < 1 cm in maximal amplitude. Rest Tremor Amplitude Lip/Jaw 1-Slight. < 1 cm in maximal amplitude. Rest Tremor Constancy 1-Slight. Tremor at rest is present < 25% of the entire examination period. MDS-UPDRS Motor subscale totals Left Total 7 Right Total 6 Midline Total 4 Tremor Total / 10 12 PIGD Total / 3 0 Overall Total 18 % Change Compared to Last Filed Total Assessment and Plan: Assessment Ms. Bingham is a right-handed 71 year old female with tremors for many years. Previous diagnosis of PD 3-4 years ago and she is on Sinemet. 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 Possibly has also developed parkinsonism which is masked by Sinemet. She has no hyposmia or RBD. At this point unclear if she truly has PD. Discussed options of tapering off Sinemet,on/off testing, DaTscan. She is endorsing a significant amount of anxiety which contributes to her symptoms. Will stop selegiline and start Lexapro. Sinemet will remain unchanged for now. Consider treatment of the ET in the near future since this is her most bothersome symptom. The following are the current problems noted and addressed during this visit: Essential tremor (primary encounter diagnosis) Plan 12/04/2021 Visit: Stop selegiline. Stay on the Sinemet (carbidopa-levodopa ) - In 2 weeks start Lexapro. This is for anxiety and depression. It can take 4-6 weeks to work. If nothelping after that time please let us know and we can increase the dose - Updated Parkinson's Medication Schedule: 630am 1230pm 630-7P Sinemet CR 50/200 1 1 1 Medical Decision Making: Problems: Moderate: New problem with uncertain prognosis Risk: Moderate: Drug management Medical Decision Making Level: 4 - Moderate Thank you for allowing me to be part of the clinical care of this patient! I look forward to continued participation in the patient s care with you. Please do not hesitate to call with any questions. Sincerely, Sebastien Lemon MD [facility] NoteHNO ID: [id number] Author: ADIN Medeiros Service: ? Author Type: Genetic Counselor Type: Progress Notes Filed: 12/01/2021 11:07 AM Note Text: [facility] Consultation Note Genetic Counselor: Nini Villeda MS, [facility] [place]: Dionna Bingham Patient Name and confirmed at initiation of visit HIGH LEVEL SUMMARY: ? 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 ? The patient provided informed consent for Custom Cancer Panel through [employer]. Results are expected in 2-3 weeks. IDENTIFICATION AND CHIEF COMPLAINT: Dr. Jennifer Jensen requested a consultation for genetic counseling and risk assessment for Dionna Bingham, a 71 year old female, for discussion of her recent diagnosis of endometrial cancer. She presents to clinic today to discuss the possibility of a genetic predisposition to cancer, and to further clarify her risks, as well as her family members' risks for cancer. 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 This was treated with TLH-BSO. As part of universal screening for Falcon Syndrome, the patient's tumor was tested for mismatch repair protein expression. 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 PAST MEDICAL HISTORY Diagnosis Date - Depression - Endometrial cancer (HCC) - Hypertension - Parkinson's disease (HCC) - PONV (postoperative nausea and vomiting) - Post-operative nausea and vomiting - Sleep apnea + cpap PAST SURGICAL HISTORY Procedure Laterality Date - ARTHRP KNE CONDYLEANDPLATU MEDIALANDLAT COMPARTMENTS Right 2013 Knee replacement, total - CATARACT EXTRACTION HX Bilateral 2019 - CHOLECYSTECTOMY 1971 Cholecystectomy - DANDC, DIAG AND/OR THERAPEUTIC 08/31/2021 Polypectomy DANDC- simple and complex with atypia - REMOVAL OF OVARY/TUBE(S) 10/18/2021 - TLH, UTERUS 250 G OR LES 10/18/2021 w/ sentinel lymph node mapping and dissection - UNSPECIFIED ORAL SURGERY PROCEDURE, BY REPORT CANCER SURVEILLANCE HISTORY: Mammograms: Yes / regular Breast MRI's: No Breast Biopsies: No Colonoscopy: Yes EGD: No GI Polyps: No Dermatology: Yes / psoriasis and had full body exam SOCIAL HISTORY: Social History Tobacco Use - Smoking status: Never Smoker - Smokeless tobacco: Never Used Vaping Use - Vaping Use: Never used Substance Use Topics - Alcohol use: Yes Comment: occasionally - Drug use: No FAMILY HISTORY: We obtained a detailed, 4-generation family history. Significant diagnoses are listed below: FAMILY HISTORY Problem Relation Age of Onset - Breast Cancer Mother 80 - No Known Problems Father - No Known Problems Sister - No Known Problems Brother - Cancer Brother due to exposure in - Uterine Cancer No Family History - Ovarian cancer No Family History - Prostate Cancer No Family History - Colon Cancer No Family History A copy of the patient's pedigree will be available under the scanned documents tab following today's visit. GENETIC COUNSELING RISK ASSESSMENT, DISCUSSION, AND SUGGESTED FOLLOW UP: We reviewed the natural history and genetic etiology of sporadic, familial and hereditary cancer syndromes. 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 We discussed that identification of a hereditary cancer syndrome may help her care providers tailor her medical management. If a mutation is detected, the National Comprehensive Cancer Network and/or expert opinion recommendations could include increased cancer surveillance options. If a mutation is detected, the patient will be referred back to the referring provider and to any additional appropriate care providers to discuss the relevant options. Inheritance of hereditary cancer syndromes was discussed with the patient. If a mutation is not found in the patient, this will decrease the likelihood of a hereditary cancer syndrome as the explanation for the patient's recent diagnosis of endometrial cancer. However, it cannot completely rule out this possibility. Cancer surveillance options would be discussed for the patient according to the appropriate standard National Comprehensive Cancer Network and [place] [employer] guidelines, with consideration of their personal and family history risk factors. In this case, the patient will be referred back to their care providers for discussions of management. Based on this assessment of the patient's family and personal history, genetic testing is recommended. After considering the risks, benefits, and limitations, the patient chose to (more content not included)...[facility]05-13-2022 History of Present illness Narrative* Nini Villeda LG - 12/01/2021 9:58 AM EDT Images from the original note were not included. 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 The patient provided informed consent for Custom Cancer Panel through [employer]. Results are expectedin 2-3 weeks. IDENTIFICATION AND CHIEF COMPLAINT: Dr. Jennifer Jensen requested a consultation for genetic counseling and risk assessment for Dionna Bingham, a 71 year old female, for discussion of her recent diagnosis of endometrial cancer. She presents to clinic today to discuss the possibility of a genetic predisposition to cancer, and to further clarify her risks, as well as her family members' risks for cancer. 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 This was treated with TLH-BSO. As part of universal screening for Falcon Syndrome, the patient's tumor was tested for mismatch repair protein expression. 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 PAST MEDICAL HISTORY Diagnosis Date Depression Endometrial cancer (HCC) Hypertension Parkinson's disease (HCC) PONV (postoperative nausea and vomiting) Post-operative nausea and vomiting Sleep apnea + cpap PAST SURGICAL HISTORY Procedure Laterality Date ARTHRP KNE CONDYLE&PLATU MEDIAL&LAT COMPARTMENTS Right 2012 Knee replacement, total CATARACT EXTRACTION HX Bilateral 2019 CHOLECYSTECTOMY 1971 Cholecystectomy D&C, DIAG AND/OR THERAPEUTIC 08/31/2021 Polypectomy D&C- simple and complex with atypia REMOVAL OF OVARY/TUBE(S) 10/18/2021 TLH, UTERUS 250 G OR LES 10/18/2021 w/ sentinel lymph node mapping and dissection UNSPECIFIED ORAL SURGERY PROCEDURE, BY REPORT CANCER SURVEILLANCE HISTORY: Mammograms: Yes / regular Breast MRI's: No Breast Biopsies: No Colonoscopy: Yes EGD: No GI Polyps: No Dermatology: Yes / psoriasis and had full body exam SOCIAL HISTORY: Social History Tobacco Use Smoking status: Never Smoker Smokeless tobacco: Never Used Vaping Use Vaping Use: Never used Substance Use Topics Alcohol use: Yes Comment: occasionally Drug use: No FAMILY HISTORY: We obtained a detailed, 4-generation family history. Significant diagnoses are listed below: FAMILY HISTORY Problem Relation Age of Onset Breast Cancer Mother 80 No Known Problems Father No Known Problems Sister No Known Problems Brother Cancer Brother due to exposure in Uterine Cancer No Family History Ovarian cancer No Family History Prostate Cancer No Family History Colon Cancer No Family History A copy of the patient's pedigree will be available under the scanned documents tab following today's visit. GENETIC COUNSELING RISK ASSESSMENT, DISCUSSION, AND SUGGESTED FOLLOW UP: We reviewed the natural history and genetic etiology of sporadic, familial and hereditary cancer syndromes. 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 We discussed that identification of a hereditary cancer syndrome may help her care providers tailorher medical management. If a mutation is detected, the National Comprehensive Cancer Network and/orexpert opinion recommendations could include increased cancer surveillance options. If a mutation is detected, the patient will be referred back to the referring provider and to any additional appropriate care providers to discuss the relevant options. Inheritance of hereditary cancer syndromes was discussed with the patient. If a mutation is not found in the patient, this will decrease the likelihood of a hereditary cancersyndrome as the explanation for the patient's recent diagnosis of endometrial cancer. However, it cannot completely rule out this possibility. Cancer surveillance options would be discussed for the patient according to the appropriate standard National Comprehensive Cancer Network and [place] [employer] guidelines, with consideration of their personal and family history risk factors. In thiscase, the patient will be referred back to their care providers for discussions of management. Based on this assessment of the patient's family and personal history, genetic testing is recommended. After considering the risks, benefits, and limitations, the patient chose to pursue and provided informed consent for the following testing: Custom Cancer Panel through [employer]. The Custom Cancer Panel includes APC, ALVINO, AXIN2, BAP1, BARD1, BMPR1A, BRCA1, BRCA2, BRIP1, CDH1, CDK4, CDKN2A, CHEK2, CTNNA1, DDX41, DICER1, EPCAM, FH, FLCN, GREM1, HOXB13, MAX, MEN1, MET, MITF, MLH1, MSH2, MSH3, MSH6, MUTYH, NF1, NTHL1, PALB2, PMS2, POLD1, POLE, POT1, PTCH1, PTEN, RAD51C, RAD51D,RET, SDHA, SDHAF2, SDHB, SDHC, SDHD, SMAD4, SMARCA4, STK11, OZOV275, TP53, TSC1, TSC2, and VHL We discussed that an NGS panel can rarely result in an unexpected finding in a gene which may or may not be related to the presenting phenotype. Per the patient's request, we will contact her by telephone to discuss these results. A follow up genetic counseling visit will be scheduled if requested. The patient was seen for a total of 30 minutes, greater than 50% of which was spent eyum-ao-iert counseling. This plan is being carried out per Dr. Dorcas Irvin's recommendations. This note will also be sent to the referring provider via the electronic medical record. Nini Villeda MS, [facility], Licensed Genetic Counselor [facility] CC: Dr. Jennifer Mcpherson documented [facility] NoteHNO ID: [id number] Author: Jennifer Jensen MD Service: ? 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 Doing very well. Had some reflux on pain meds but much better now that she is off. Feels a pulling sensation occasionally up by ribs but it is not severe. NO N/V/C/D. No bleeding or discharge. No fevers. Oncology History Endometrial cancer (HCC) 10/17/2021 Initial Diagnosis TLH/BSO/sentinel lymph node mapping, cystoscopy. FIGO grade 1 EAC, no myovasion, no cervical stromal involvement, no LVSI. 0/1 positive SLN. Non-mapping of left --> intraoperative frozen section sent. ROS: 14 point ROS negative unless indicated in above HPI. Medical history: PAST MEDICAL HISTORY Diagnosis Date - Depression - Endometrial cancer (HCC) - Hypertension - Parkinson's disease (HCC) - PONV (postoperative nausea and vomiting) - Post-operative nausea and vomiting - Sleep apnea + cpap Surgical history: PAST SURGICAL HISTORY Procedure Laterality Date - ARTHRP KNE CONDYLEANDPLATU MEDIALANDLAT COMPARTMENTS Right 2012 Knee replacement, total - CATARACT EXTRACTION HX Bilateral 2018 - CHOLECYSTECTOMY 1971 Cholecystectomy - DANDC, DIAG AND/OR THERAPEUTIC 08/31/2021 Polypectomy DANDC- simple and complex with atypia - REMOVAL OF OVARY/TUBE(S) 10/18/2021 - TLH, UTERUS 250 G OR LES 10/18/2021 w/ sentinel lymph node mapping and dissection - UNSPECIFIED ORAL SURGERY PROCEDURE, BY REPORT [employer] history: (). Menopause early to mid 50s. No h/o of abnormal Pap smears. Family history: Family History Problem Relation Age of Onset - Breast Cancer Mother 80 - No Known Problems Father - No Known Problems Sister - No Known Problems Brother - Cancer Brother due to exposure in - Uterine Cancer No Family History - Ovarian cancer No Family History - Prostate Cancer No Family History - Colon Cancer No Family History Social history: Social History Tobacco Use - Smoking status: Never Smoker - Smokeless tobacco: Never Used Vaping Use - Vaping Use: Never used Substance Use Topics - Alcohol use: Yes Comment: occasionally - Drug use: No Medications: Current Outpatient Medications Medication Sig Dispense Refill - acetaminophen (TYLENOL) 325 mg tablet Take 2 tablets by mouth every 6 hours as needed for pain. 60 tablet 1 - ibuprofen (MOTRIN) 600 mg tablet Take 1 tablet by mouth every 6 hours as needed for pain. 30 tablet 1 - oxyCODONE IR (ROXICODONE) 5 mg immediate release tablet Take 1 tablet by mouth every 6 hours as needed for pain. 20 tablet 0 - ondansetron (ZOFRAN) 4 mg tablet Take 1 tablet by mouth every 8 hours as needed for nausea/vomiting. 30 tablet 0 - Aug Betamethasone Dipropionate (DIPROLENE) 0.05 % ointment Apply to affected area as needed. - selegiline (ELDEPRYL) 5 mg tablet Take 5 mg by mouth twice daily with meals. - losartan (COZAAR) 50 mg tablet Take by mouth once daily. 3 - carbidopa-levodopa CR (SINEMET CR) 50-200 mg per tablet Take 1 tablet by mouth three times daily. 6 No current facility-administered medications for this visit. Healthcare maintenance: Colonoscopy: Reports up to date Mammogram: Reports up to date Pap smear: See HPI PE: EGOG PS 1 BP 150/81 (BP Site: Left Arm, BP Position: Sitting, BP Cuff Size: Large Adult) Pulse 76 Temp 37.1 ?C (98.8 ?F) (Temporal) Ht 161.3 cm (5' 3.5) Wt 95.3 kg (210 lb) SpO2 97% BMI 36.62 kg/m? Gen: well-appearing, NAD Abd: obese, soft, NTTP, tegederms removed from port sites - incisions c/d/i, no separation, no redness, healing well Pelvic: deferred Labs/Imaging: A. Uterus, cervix, bilateral fallopian tubes and bilateral ovaries, hysterectomy and bilateral salpingo-oophorectomy: Cervix: ?Nabothian cysts, negative for neoplasm. Lower uterine segment: ?Negative for neoplasm. Endometrium: ?Endometrial adenocarcinoma, endometrioid type, FIGO grade 1. ?Background of endometrial hyperplasia with atypia. ?Tumor is confined to the endometrium. ?Please see comment and synoptic report. Myometrium: ?Leiomyomata (1.5 cm in greatest dimension, intramural). ?Adenomyosis. ?Negative for involvement by carcinoma. Serosa: ?Fibrous adhesions. ?Negative for neoplasm. Right and left fallopian tubes: ?Unremarkable fallopian tubes. Right and left ovaries: ?Unremarkable ovaries. B. [place] lymph node, left pelvic, excision: ?1 lymph node, negative for neoplasm (0/1). See comment. A/P: This is a 71 year old with stage IA FIGO grade 1 EAC of the uterus here for her post-operative visit. Post-op: - Pathology report reviewed and sent via [employer] - Abdominal binder - Healing well and meeting postoperative go (more content not included)...[facility]04-14-2022 Miscellaneous Notes* Addendum Note - Allison Trujillo APRN.CNP - 11/02/2021 2:58 PM EDT Addended by: ALLISON TRUJILLO on: 11/02/2021 02:58 PM Modules accepted: Orders * Addendum Note - Allison Trujillo APRN.CNP - 11/02/2021 2:56 PM EDT Addended by: ALLISON TRUJILLO on: 11/02/2021 02:56 PM Modules accepted: [facility] History of Present illness Narrative* Jennifer Jensen MD - 11/02/2021 1:59 PM EDT Gynecologic Oncology Note [facility] Chief complaint: Post-op HPI: This is a 71 year old with stage IA FIGO grade 1 EAC of the uterus here for her post-operativevisit. Doing very well. Had some reflux on pain meds but much better now that she is off. Feels a pulling sensation occasionally up by ribs but it is not severe. NO N/V/C/D. No bleeding or discharge. No fevers. Oncology History Endometrial cancer (HCC) 10/17/2021 Initial Diagnosis TLH/BSO/sentinel lymph node mapping, cystoscopy. FIGO grade 1 EAC, no myovasion, no cervical stromal involvement, no LVSI. 0/1 positive SLN. Non-mapping of left --> intraoperative frozen section sent. ROS: 14 point ROS negative unless indicated in above HPI. Medical history: PAST MEDICAL HISTORY Diagnosis Date Depression Endometrial cancer (HCC) Hypertension Parkinson's disease (HCC) PONV (postoperative nausea and vomiting) Post-operative nausea and vomiting Sleep apnea + cpap Surgical history: PAST SURGICAL HISTORY Procedure Laterality Date ARTHRP KNE CONDYLE&PLATU MEDIAL&LAT COMPARTMENTS Right 2012 Knee replacement, total CATARACT EXTRACTION HX Bilateral 2019 CHOLECYSTECTOMY 1971 Cholecystectomy D&C, DIAG AND/OR THERAPEUTIC 08/31/2021 Polypectomy D&C- simple and complex with atypia REMOVAL OF OVARY/TUBE(S) 10/18/2021 TLH, UTERUS 250 G OR LES 10/18/2021 w/ sentinel lymph node mapping and dissection UNSPECIFIED ORAL SURGERY PROCEDURE, BY REPORT [employer] history: (). Menopause early to mid 50s. No h/o of abnormal Pap smears. Family history: Family History Problem Relation Age of Onset Breast Cancer Mother 80 No Known Problems Father No Known Problems Sister No Known Problems Brother Cancer Brother due to exposure in Uterine Cancer No Family History Ovarian cancer No Family History Prostate Cancer No Family History Colon Cancer No Family History Social history: Social History Tobacco Use Smoking status: Never Smoker Smokeless tobacco: Never Used Vaping Use Vaping Use: Never used Substance Use Topics Alcohol use: Yes Comment: occasionally Drug use: No Medications: Current Outpatient Medications Medication Sig Dispense Refill acetaminophen (TYLENOL) 325 mg tablet Take 2 tablets by mouth every 6 hours as needed for pain. 60 tablet 1 ibuprofen (MOTRIN) 600 mg tablet Take 1 tablet by mouth every 6 hours as needed for pain. 30 tablet1 oxyCODONE IR (ROXICODONE) 5 mg immediate release tablet Take 1 tablet by mouth every 6 hours as needed for pain. 20 tablet 0 ondansetron (ZOFRAN) 4 mg tablet Take 1 tablet by mouth every 8 hours as needed for nausea/vomiting. 30 tablet 0 Aug Betamethasone Dipropionate (DIPROLENE) 0.05 % ointment Apply to affected area as needed. selegiline (ELDEPRYL) 5 mg tablet Take 5 mg by mouth twice daily with meals. losartan (COZAAR) 50 mg tablet Take by mouth once daily. 3 carbidopa-levodopa CR (SINEMET CR) 50-200 mg per tablet Take 1 tablet by mouth three times daily. 6 No current facility-administered medications for this visit. Healthcare maintenance: Colonoscopy: Reports up to date Mammogram: Reports up to date Pap smear: See HPI PE: EGOG PS 1 BP 150/81 (BP Site: Left Arm, BP Position: Sitting, BP Cuff Size: Large Adult) Pulse 76 Temp 37.1 C (98.8 F) (Temporal) Ht 161.3 cm (5' 3.5) Wt 95.3 kg (210 lb) SpO2 97% BMI 36.62 kg/m Gen: well-appearing, NAD Abd: obese, soft, NTTP, tegederms removed from port sites - incisions c/d/i, no separation, no redness, healing well Pelvic: deferred Labs/Imaging: A. Uterus, cervix, bilateral fallopian tubes and bilateral ovaries, hysterectomy and bilateral salpingo-oophorectomy: Cervix: Nabothian cysts, negative for neoplasm. Lower uterine segment: Negative for neoplasm. Endometrium: Endometrial adenocarcinoma, endometrioid type, FIGO grade 1. Background of endometrial hyperplasia with atypia. Tumor is confined to the endometrium. Please see comment and synoptic report. Myometrium: Leiomyomata (1.5 cm in greatest dimension, intramural). Adenomyosis. Negative for involvement by carcinoma. Serosa: Fibrous adhesions. Negative for neoplasm. Right and left fallopian tubes: Unremarkable fallopian tubes. Right and left ovaries: Unremarkable ovaries. B. [place] lymph node, left pelvic, excision: 1 lymph node, negative for neoplasm (0/1). See comment. A/P: This is a 71 year old with stage IA FIGO grade 1 EAC of the uterus here for her post-operativevisit. Post-op: - Pathology report reviewed and sent via [employer] - Abdominal binder - Healing well and meeting postoperative goals appropriately Endometrial cancer: - No adjuvant therapy indicated - Reviewed warning signs/symptoms of recurrence - MMR pending - RTC in 3 months. Will plan to alternative visits after this with primary behavior interventionist. Jennifer Jensen MD, MPH Gynecologic Oncologist [facility] NoteHNO ID: [id number] Author: Chirag English RN Service: ? Author Type: Registered Nurse Type: Nursing Progress Note Filed: 10/18/2021 4:50 PM Note Text: The pt states that her nausea is improved and she is ready to go home [facility]03-30-2022 NoteHNO ID: [id number] Author: Kaykay Early APRN.MACHINE SIZER Service: Anesthesiology Author Type: Nurse Supervisor Unloading Type: Anesthesia Procedure Notes Filed: 10/18/2021 9:12 AM Note Text: ANESTHESIOLOGY PROCEDURE NOTE PIV General Information Staffing MACHINE SIZER: Kaykay Early APRN.MACHINE SIZER Preparation Sterility Preparation: hand hygiene performed prior to procedure, sterile gloves, drapes, and procedure tray, gown used during line insertion, surgical cap used, mask used, sterile drape used during line insertion, skin prep agent completely dried prior to procedure Sterility Technique Not Completely Performed Due to Extreme Emergency: No Site Prep: alcohol Procedure Details Indication: need for IV access Needle Size/Type: 20 gauge angiocath Orientation: Left Location: Hand Imaging Guidance Used: No SIGNATURE: Kaykay Early APRN.MACHINE SIZER PATIENT NAME: Dionna Bingham DATE: October 18, 2021 TIME: 9:12 AM CSN: [id number] NoteHNO ID: [id number] Author: Kaykay Early APRN.MACHINE SIZER Service: Anesthesiology Author Type: Nurse Supervisor Unloading Type: Anesthesia Procedure Notes Filed: 10/18/2021 9:12 AM Note Text: ANESTHESIOLOGY PROCEDURE NOTE Airway General Information Procedure Start Time/Medication Administration: 10/18/2021 8:46 AM Patient location during procedure: OR Consent Obtained: Yes Patient identity confirmed: arm band Staffing Anesthesiologist: Yunior Upton MD MACHINE SIZER: Kaykay Early APRN.MACHINE SIZER Performed by: CAA student Indications and Patient Condition Preoxygenated: yes Patient position: sniffing Manual In-Line Stabilization: No Difficult Mask: No Indications for airway management: anesthesia anesthesia circuit Method: asleep Cricoid Pressure: No Final Airway Details Final airway type: endotracheal airway Final Endotracheal Airway: ETT Cuffed: yes Successful intubation technique: direct laryngoscopy Endotracheal tube insertion site: oral Blade: Paulo Blade size: #3 ETT size (mm): 7.0 Measurement (cm): 22 Placement verified by: capnometry Cormack-Lehane Classification: grade I - full view of glottis Number of attempts at approach: 1 Failed airway: no Airway not difficult SIGNATURE: Kaykay Early APRN.MACHINE SIZER PATIENT NAME: Dionna Bingham DATE: October 18, 2021 TIME: 9:10 AM CSN: [id number] NoteHNO ID: [id number] Author: Jennifer Jensen MD Service: ? Author Type: Physician Type: Progress Notes Filed: 10/02/2021 1:46 PM Note Text: Gynecologic Oncology Consultation Note [facility] Referring provider: Corrina Pitts Chief complaint: EIN HPI: This is a 71 year old patient with a new diagnosis of EIN here for surgical consultation. She has had spotting and intermittent cramping since April 2021. She had a pap smear that showed atypical glandular cells, endometrial type, HPV negative. Endometrial biopsy showed a polyp. Because of persistent spotting, she underwent a hysteroscopy, D+C, polypectomy in early Aug 2021. Results showed but simple and complex hyperplasia with atypia. She saw Corrina Pitts and desires surgery so was referred for consultation. Other than light spotting/cramping, she feels well. She denies N/V/C/D, no other pain. Good appetite. ROS: 14 point ROS negative unless indicated in above HPI. Medical history: PAST MEDICAL HISTORY Diagnosis Date - EIN (endometrial intraepithelial neoplasia) - Hypertension - Parkinson's disease (HCC) Surgical history: PAST SURGICAL HISTORY Procedure Laterality Date - ARTHRP KNE CONDYLEANDPLATU MEDIALANDLAT COMPARTMENTS Right Knee replacement, total - CATARACT EXTRACTION HX Bilateral 2019 - CHOLECYSTECTOMY Cholecystectomy - DANDC, DIAG AND/OR THERAPEUTIC 08/31/2021 Polypectomy DANDC- simple and complex with atypia - UNSPECIFIED ORAL SURGERY PROCEDURE, BY REPORT [employer] history: (). Menopause early to mid 50s. No h/o of abnormal Pap smears. Family history: Family History Problem Relation Age of Onset - Breast Cancer Mother 80 - No Known Problems Father - No Known Problems Sister - No Known Problems Brother - Cancer Brother due to exposure in - Uterine Cancer No Family History - Ovarian cancer No Family History - Prostate Cancer No Family History - Colon Cancer No Family History Social history: Social History Tobacco Use - Smoking status: Never Smoker - Smokeless tobacco: Never Used Vaping Use - Vaping Use: Never used Substance Use Topics - Alcohol use: Yes Comment: occasionally - Drug use: No Medications: Current Outpatient Medications Medication Sig Dispense Refill - Aug Betamethasone Dipropionate (DIPROLENE) 0.05 % ointment - miSOPROStol (CYTOTEC) 200 mcg tablet Insert 2 tablets vaginally night prior to procedure and 2 tablets morning of procedure. Each dose should be in vagina for 6-8 hours. (Patient not taking: Reported on 09/29/2021 ) 4 tablet 0 - selegiline (ELDEPRYL) 5 mg tablet Take 5 mg by mouth twice daily with meals. - losartan (COZAAR) 50 mg tablet 3 - carbidopa-levodopa CR (SINEMET CR) 50-200 mg per tablet Take 1 tablet by mouth three times daily. 6 - DAILY MULTIVITAMIN TAB Take one(1) tablet daily. (Patient not taking: Take one(1) tablet daily.) 0 - CALCIUM 600 600 MG TAB take one tablet daily (Patient not taking: ) 0 No current facility-administered medications for this visit. Healthcare maintenance: Colonoscopy: Reports up to date Mammogram: Reports up to date Pap smear: See HPI PE: EGOG PS 1 BP 138/72 (BP Site: Right Arm, BP Position: Sitting, BP Cuff Size: Large Adult) Pulse 72 Temp 36.8 ?C (98.2 ?F) (Temporal) Ht 162.6 cm (5' 4) Wt 96.6 kg (213 lb) SpO2 95% BMI 36.56 kg/m? Gen: well-appearing, NAD Abd: obese, soft, NTTP, RUQ subcostal incision Pelvic: normal external exam, speculum shows large cervix without lesions, scant white discharge, no blood, bimanual with smooth parous cervix, mobile uterus, free parametria Labs/Imaging: Pathology (09/06/21): Simple and complex hyperplasia with atypia Pelvic US (08/11/21): Uterus Uterus: Visualized Uterus position: anteverted Uterus long 108 mm Uterus ap 53 mm Uterus tr 55 mm Uterus Vol 164.7 cm? Endometrial thickness, total 29.5 mm Right Ovary Rt ovary: Not visualized Left Ovary Lt ovary: Visualized Lt ovary D1 44 mm Lt ovary D2 38?mm Lt ovary D3 27 mm Lt ovary Vol 23.7 cm? Lt ovarian cyst D1 38 mm Lt ovarian cyst D2 24 mm Lt ovarian cyst D3 25 mm Lt ovarian cyst mean 29.0 mm Lt ovarian cyst vol 11.938 cm? Lt ovarian cyst findings: simple cyst Cul de Sac Visualized. no free fluid visualized A/P: This is a 71 year old patient with a new diagnosis of EIN here for surgical consultation. EIN: - We reviewed the natural history of EIN and endometrial cancer: - Reviewed up to 40 % of patients have a concurrent endometrial cancer at time of surgery. - She was previously offered conservative therapy with progestins but has declined and prefers definitive surgical management. - Reviewed that without preoperative diagnosis of cancer, I favor frozen section to rule out cancer and if cancer deeply invasive cancer instead of SLN dissection given that if no cancer is seen SLN would b (more content not included)...[facility]12-26-2018 History of Past illness Narrative* Problem Noted Date Resolved Date Parkinson's disease 07/16/2018 11/20/2022 documented as of this encounter (statuses as of 11/25/2022) [facility] of Past illness Narrative* Problem Noted Date Resolved Date Parkinson's disease 07/16/2018 11/20/2022 documented as of this encounter (statuses as of 12/04/2022) [facility] of Past illness Narrative* Problem Noted Date Diagnosed Date Resolved Date Parkinson's disease 07/16/2018 11/21/19 23 documented as of this encounter (statuses as of 02/20/2023) [facility] History of Past illness Narrative* Problem Noted Date Diagnosed Date Resolved Date Parkinson's disease 07/16/2018 11/21/19 23 documented as of this encounter (statuses as of 02/22/2023) [facility] of Past illness Narrative* Problem Noted Date Diagnosed Date Resolved Date Parkinson's disease 07/16/2018 11/21/19 23 documented as of this encounter (statuses as of 05/08/2023) [facility] of [facility] illness Narrative* Problem Noted Date Diagnosed Date Resolved Date Parkinson's disease 07/16/2018 11/21/19 23 documented as of this encounter (statuses as of 05/22/2023) [facility] illness Narrative* Problem Noted Date Diagnosed Date Resolved Date Parkinson's disease 07/16/2018 11/21/19 23 documented as of this encounter (statuses as of 05/23/2023) [address] History of Past illness Narrative* Problem Noted Date Resolved Date Essential and other specified forms of tremor 10/02/2021 documented as of this encounter (statuses as of 11/02/2021) [address] History of Past illness Narrative* Problem Noted Date Resolved Date Essential and other specified forms of tremor 10/02/2021 documented as of this encounter (statuses as of 12/01/2021) [address] History of Past illness Narrative* Problem Noted Date Resolved Date Essential and other specified forms of tremor 10/02/2021 documented as of this encounter (statuses as of 12/05/2021) [address] History of Past illness Narrative* Problem Noted Date Resolved Date Essential and other specified forms of tremor 10/02/2021 documented as of this encounter (statuses as of 12/13/2021) [address] History of Past illness Narrative* Problem Noted Date Resolved Date Essential and other specified forms of tremor 10/02/2021 documented as of this encounter (statuses as of 02/27/2022) [address] History of Past illness Narrative* Problem Noted Date Resolved Date Essential and other specified forms of tremor 10/02/2021 documented as of this encounter (statuses as of 03/29/2022) [address] History of Past illness Narrative* Problem Noted Date Resolved Date Essential and other specified forms of tremor 10/02/2021 documented as of this encounter (statuses as of 04/04/2022) [place] [id number] History of Past illness Narrative* Problem Noted Date Resolved Date Essential and other specified forms of tremor 10/02/2021 documented as of this encounter (statuses as of 05/12/2022) [place] [id number] History of Past illness Narrative* Problem Noted Date Resolved Date Essential and other specified forms of tremor 10/02/2021 documented as of this encounter (statuses as of 05/15/2022) [address] History of Past illness Narrative* Problem Noted Date Resolved Date Essential and other specified forms of tremor 10/02/2021 documented as of this encounter (statuses as of 05/17/2022) [address] History of Past illness Narrative* Problem Noted Date Resolved Date Essential and other specified forms of tremor 10/02/2021 documented as of this encounter (statuses as of 05/30/2022) [address] History of Past illness Narrative* Problem Noted Date Resolved Date Essential and other specified forms of tremor 10/02/2021 documented as of this encounter (statuses as of 09/04/2022) [place] [id number] History of Past illness Narrative* Problem Noted Date Resolved Date Essential and other specified forms of tremor 10/02/2021 documented as of this encounter (statuses as of 10/09/2022) [facility]rial cancer (HCC)- Primary Malignant neoplasm of corpus uteri, except isthmus Postop check Follow-up examination, following unspecified surgery [facility]rial cancer (HCC)- Primary Malignant neoplasm of corpus uteri, except isthmus [facility] Diagnosis Essential tremor- Primary Essential and other specified forms of tremor [facility]* Diagnosis History of endometrial cancer- Primary Personal history of malignant neoplasm of other parts of uterus Encounter for screening mammogram for malignant neoplasm of breast Other [facility] Encounter for screening mammogram for malignant neoplasm of breast Other screening mammogram [facility]* Diagnosis Parkinsonism, unspecified Parkinsonism type (HCC)- Primary [facility]* Diagnosis Endometrial cancer, grade I (HCC)- Primary S/P hysterectomy with oophorectomy Acquired absence of both cervix and uterus [facility] Diagnosis Endometrial cancer (HCC)- Primary Malignant neoplasm of corpus uteri, except isthmus Dysuria Asymptomatic microscopic hematuria [facility] Diagnosis Essential tremor- Primary Essential and other specified forms of tremor [facility]* Diagnosis Endometrial cancer (HCC)- Primary Malignant neoplasm of corpus uteri, except isthmus Diarrhea, unspecified type Bloating Flatulence, eructation, and gas pain Rectal sphincter incontinence Full incontinence of feces [facility]* Diagnosis Endometrial cancer (HCC)- Primary Malignant neoplasm of corpus uteri, except isthmus Encounter for screening mammogram for malignant neoplasm of breast Other screening mammogram [facility] Diagnosis Essential tremor- Primary Essential and other specified forms of tremor Parkinsonism, unspecified Parkinsonism type [facility]* Diagnosis Encounter for screening mammogram for malignant neoplasm of breast Other screening mammogram [facility]* Diagnosis Essential tremor Essential and other specified forms of tremor [facility]* Diagnosis Endometrial cancer (HCC)- Primary Malignant neoplasm of corpus uteri, except isthmus [facility]* Diagnosis Parkinsonism, unspecified Parkinsonism type (HCC) [facility]* Diagnosis Essential tremor- Primary Essential and other specified forms of tremor [facility]* Diagnosis Essential tremor- Primary Essential and other specified forms of tremor [facility]* Diagnosis Essential tremor Essential and other specified forms of tremor [facility]* Diagnosis Essential tremor Essential and other specified forms of tremor [facility]* Diagnosis Encounter for screening mammogram for breast cancer documented in this encounter [facility]* Diagnosis Abnormal mammogram- Primary Abnormal mammogram, unspecified documented in this encounter [facility] note* Diagnosis Abnormal mammogram Abnormal mammogram, unspecified documented in this encounter [facility] note* Diagnosis Abnormal mammogram Abnormal mammogram, unspecified documented in this encounter [facility] note* Diagnosis Encounter for gynecological examination (general) (routine) without abnormal findings- Primary Encounter for screening mammogram for breast cancer documented in this encounter [facility] note* Diagnosis Onset Date Resolution Status Admit Date Obesity, class 2 acute December 10:13am ETHEL (obstructive sleep apnea) acute December 30, 2024 10:13am SOB (shortness of breath) acute December 30, 2024 10:13am [place] [facility]* Diagnosis Tremor- Primary Abnormal involuntary movements Parkinsonism, unspecified Parkinsonism type (HCC) [facility] Diagnostic Procedure Only (Routine) - Authorized Specialty Diagnoses / Procedures Referred By Derrell wilson Referred To Contact [facility] Diagnoses Encounter for screening mammogram for malignant neoplasm of breast Procedures ANTONELLA SCREENING W MEKA SCREENING DIGITAL BREAST TOMOSYNTHESIS BI SCREENING MAMMOGRAPHY BI 2-VIEW BREAST INC CAD Parul Chandra MD [address] [place] [address] [facility] [address] [place] [id number] Referral ID Status Reason Start Date Expiration Date Visits Requested Visits Authorized [id number] Authorized Auto-Generat ed Referral 02/27/2022 03/29/2023 [facility] Diagnostic Procedure Only (Routine) - Closed Specialty Diagnoses / Procedures Referred By Derrell wilson Referred To Contact BR IMAGING Diagnoses Encounter for screening mammogram for malignant neoplasm of breast Procedures ANTONELLA SCREENING W MEKA SCREENING DIGITAL BREAST TOMOSYNTHESIS BI SCREENING MAMMOGRAPHY BI 2-VIEW BREAST INC Parul Zaldivar MD [address] [place] [address] [facility] [address] [place] [address] Referral ID Status Reason Start Date Expiration Date V isits Requested Visits Authorized [id number] Closed Auto-Generate d Referral 02/27/2022 03/29/2023 1 1 [facility] for referral (narrative)* Diagnostic Procedure Only (Routine) - Authorized Specialty Diagnoses / Procedures Referred By Contac t Referred To Contact BR IMAGING Diagnoses Encounter for screening mammogram for malignant neoplasm of breast Procedures ANTONELLA SCREENING W MEKA SCREENING DIGITAL BREAST TOMOSYNTHESIS BI SCREENING MAMMOGRAPHY BI 2-VIEW BREAST INC CAD Parul Chandra MD [address] [place] [address] [facility] [address] [place] [address] Referral ID Status Reason Start Date Expiration Date Visits Requested Visits Authorized [id number] Authorized Auto-Generat ed Referral 06/06/2024 1 1 [facility] for referral (narrative)* Diagnostic Procedure Only (Routine) - Closed Specialty Diagnoses / Procedures Referred By Contac t Referred To Contact BR IMAGING Diagnoses Encounter for screening mammogram for malignant neoplasm of breast Procedures ANTONELLA SCREENING W MEKA SCREENING DIGITAL BREAST TOMOSYNTHESIS BI SCREENING MAMMOGRAPHY BI 2-VIEW BREAST INC CAD Parul Chandra MD [address] [place] [address] [facility] [address] [place] [address] Referral ID Status Reason Start Date Expiration Date V isits Requested Visits Authorized [id number] Closed Auto-Generate d Referral 05/08/2023 06/06/2024 1 1 [facility] for referral (narrative)* Diagnostic Procedure Only (Routine) - New Request Specialty Diagnoses / Procedures Referred By Derrell t Referred To Contact [facility] IMAGING Diagnoses Abnormal mammogram Procedures US BREAST LTD LEFT US BREAST UNI REAL TIME WITH IMAGE LIMITED Parul Chandra MD [address] [place] [address] [facility] [address] [place] [phone] Referral ID Status Reason Start Date Expiration Date Visits Requested Visits Authorized [id number] New Request Auto-Generat ed Referral 4 06/18/2025 1 1 * Diagnostic Procedure Only (Routine) - New Request Specialty Diagnoses / Procedures Referred By Derrell wilson Referred To Contact [facility] IMAGING Diagnoses Abnormal mammogram Procedures ANTONELLA DIAGNOSTIC LEFT DIAGNOSTIC MAMMOGRAPHY COMPUTER-AIDED DETCJ UNI Parul Chandra MD [address] [place] [address] [facility] [address] [place] [phone] Referral ID Status Reason Start Date Expiration Date Visits Requested Visits Authorized [id number] New Request Auto-Generat ed Referral 4 06/18/2025 1 1 [facility] for referral (narrative)* Diagnostic Procedure Only (Routine) - New Request Specialty Diagnoses / Procedures Referred By Derrell t Referred To Contact [facility] IMAGING Diagnoses Abnormal mammogram Procedures US BREAST LTD LEFT US BREAST UNI REAL TIME WITH IMAGE LIMITED Parul Chandra MD [address] [place] [address] [facility] [address] [place] [address] Referral ID Status Reason Start Date Expiration Date Visits Requested Visits Authorized [id number] New Request Auto-Generat ed Referral 4 08/13/2025 1 1 * Diagnostic Procedure Only (Routine) - New Request Specialty Diagnoses / Procedures Referred By Derrell wilson Referred To Contact [facility] IMAG[facility] Diagnoses Abnormal mammogram Procedures ANTONELLA DIAGNOSTIC LEFT DIAGNOSTIC MAMMOGRAPHY COMPUTER-AIDED DETCJ UNI Parul Chandra MD [address] [place] [address] [facility] [address] [place] [address] Referral ID Status Reason Start Date Expiration Date Visits Requested Visits Authorized [id number] New Request Auto-Generat ed Referral 4 08/13/2025 1 1 [facility] for referral (narrative)* Diagnostic Procedure Only (Routine) - Closed Specialty Diagnoses / Procedures Referred By Derrell wilson Referred To Contact [facility] IMAGING Diagnoses Abnormal mammogram Procedures US BREAST LTD LEFT US BREAST UNI REAL TIME WITH IMAGE LIMITED Parul Chandra MD [address] [place] [address] [facility] Imaging [address] [place] [address] Referral ID Status Reason Start Date Expiration Date V isits Requested Visits Authorized [id number] Closed Auto-Generate d Referral 05/19/2024 06/18/2025 1 1 [facility] for referral (narrative)* Diagnostic Procedure Only (Routine) - Authorized Specialty Diagnoses / Procedures Referred By Derrell wilson Referred To Contact BR IMAGING Diagnoses Encounter for screening mammogram for breast cancer Procedures ANTONELLA SCREENING W MEKA SCREENING DIGITAL BREAST TOMOSYNTHESIS BI SCREENING MAMMOGRAPHY BI 2-VIEW BREAST INC CAD Parul Chandra MD [address] [place] [address] [facility] [address] [place] [address] Referral ID Status Reason Start Date Expiration Date Visits Requested Visits Authorized [id number] Authorized Auto-Generat ed Referral 08/21/2024 09/20/2025 1 1 [facility] for referral (narrative)No reason for referral information availableSt[facility] Work Phone: Reason for visit Narrative* Diagnostic Procedure Only (Routine) - Closed Specialty Diagnoses / Procedures Referred By Derrell wilson Referred To Contact BR IMAGING Diagnoses Encounter for screening mammogram for malignant neoplasm of breast Procedures ANTONELLA SCREENING W MEKA SCREENING DIGITAL BREAST TOMOSYNTHESIS BI SCREENING MAMMOGRAPHY BI 2-VIEW BREAST INC CAD Parul Chandra MD [address] [place] [address] [facility] [address] [place] [address] Referral ID Status Reason Start Date Expiration Date V isits Requested Visits Authorized [id number] Closed Auto-Generate d Referral 02/27/2022 03/29/2023 1 1 [facility] for visit Narrative* Diagnostic Procedure Only (Routine) - Closed Specialty Diagnoses / Procedures Referred By Derrell wilson Referred To Contact BR IMAGING Diagnoses Encounter for screening mammogram for malignant neoplasm of breast Procedures ANTONELLA SCREENING W MEKA SCREENING DIGITAL BREAST TOMOSYNTHESIS BI SCREENING MAMMOGRAPHY BI 2-VIEW BREAST INC CAD Parul Chandra MD [address] [place] [address] [facility] Imaging [address] [place] [address] Referral ID Status Reason Start Date Expiration Date V isits Requested Visits Authorized [id number] Closed Auto-Generate d Referral 05/08/2023 06/06/2024 1 1 [facility] for visit Narrative* Diagnostic Procedure Only (Routine) - Closed Specialty Diagnoses / Procedures Referred By Derrell t Referred To Contact [facility] IMAGING Diagnoses Encounter for screening mammogram for breast cancer Procedures ANTONELLA SCREENING W MEKA SCREENING DIGITAL BREAST TOMOSYNTHESIS BI SCREENING MAMMOGRAPHY BI 2-VIEW BREAST INC CAD Parul Chandra MD [address] [place] [address] [facility] [address] [place] [address] Referral ID Status Reason Start Date Expiration Date V isits Requested Visits Authorized [id number] Closed Auto-Generate d Referral 08/20/2023 09/18/2024 1 [facility] Procedure Only (Routine) - Closed Specialty Diagnoses / Procedures Referred By Contac t Referred To Contact [facility] IMAGING Diagnoses Abnormal mammogram Procedures ANTONELLA DIAGNOSTIC LEFT DIAGNOSTIC MAMMOGRAPHY COMPUTER-AIDED DETCJ UNI Parul Chandra MD [address] [place] [address] [facility] [address] [place] [phone] Referral ID Status Reason Start Date Expiration Date V isits Requested Visits Authorized [id number] Closed Auto-Generate d Referral 05/19/2024 06/18/2025 1 1 [facility] Summary Purpose Family History Relationship Condition Age at Onset Recorded Date/T cirilo mother Malignant neoplasm Unknown Advance Directives Documents on File Type Date Recorded Patient Home Service Technician Expl anation Advance Directive(s) 10/18/2021 7:01 AM Documents on File Type Date Recorded Patient Home Service Technician Expl anation Advance Directive(s) 10/18/2021 7:01 AM Reason for Referral Specialty Diagnoses / Procedures Referred By Contac t Referred To Contact Diagnoses Essential tremor Procedures PROVIDER ORDERED FOLLOW UP OFFICE/OUTPATIENT NEW HIGH MDM 60-74 MINUTES Sebastien Lemon MD [address] [address] Referral ID Status Reason Start Date Expiration Date Visits Requested Visits Authorized [id number] Authorized PCP Requested Referral 12/04/2021 12/04/2022 1 1 Specialty Diagnoses / Procedures Referred By Contac t Referred To Contact Diagnoses Parkinsonism, unspecified Parkinsonism type (HCC) Procedures PROVIDER ORDERED FOLLOW UP OFFICE/OUTPATIENT NEW HIGH MDM 60-74 MINUTES Allison Sheppard, PROGRAMS ASSISTANT.VISUAL ARTS TEACHER [address] [place] [address] Referral ID Status Reason Start Date Expiration Date Visits Requested Visits Authorized [id number] Authorized PCP Requested Referral 05/15/2023 1 1 Referral ID Status Reason Start Date Expiration Date Visits Requested Visits Authorized [id number] Authorized PCP Requested Referral 11/20/2022 02/18/2023 1 1 Specialty Diagnoses / Procedures Referred By Contac t Referred To Contact Gastroenterology Diagnoses Rectal sphincter incontinence Diarrhea, unspecified type Bloating Procedures CONSULT TO GASTROENTEROLOGY OFFICE/OUTPATIENT NEW HIGH MDM 60-74 MINUTES Parul Chandra MD [address] [place] [address] Referral ID Status Reason Start Date Expiration Date Visits Requested Visits Authorized [id number] Authorized PCP Requested Referral 12/04/2022 12/04/2023 1 1 Specialty Diagnoses / Procedures Referred By Contac t Referred To Contact Diagnoses Essential tremor Procedures PROVIDER ORDERED FOLLOW UP Sebastien Lemon MD [address] [address] Referral ID Status Reason Start Date Expiration Date Visits Requested Visits Authorized [id number] Ref Not Required PCP Requested Referral 05/22/2023 08/20/2023 1 1 Specialty Diagnoses / Procedures Referred By Contac t Referred To Contact Diagnoses Essential tremor Procedures PROVIDER ORDERED FOLLOW UP OFFICE/OUTPATIENT [facility] 60 MINUTES Sebastien Lemon MD [address] [address] Referral ID Status Reason Start Date Expiration Date Visits Requested Visits Authorized [id number] Authorized PCP Requested Referral 11/20/2023 02/18/2024 1 1 Specialty Diagnoses / Procedures Referred By Contac t Referred To Contact CT IMAGING Diagnoses Essential tremor Procedures CT BRAIN WO IVCON CT HEAD/BRAIN W/O CONTRAST MATERIAL Sebastien Lemon MD [address] [address] [place] [address] Referral ID Status Reason Start Date Expiration Date Visits Requested Visits Authorized [id number] New Request Auto-Generat ed Referral 03/16/2024 04/15/2025 1 1 Specialty Diagnoses / Procedures Referred By Contac t Referred To Contact Psychology Diagnoses Essential tremor Procedures CONSULT TO PSYCHOLOGY OFFICE/OUTPATIENT [facility] 60 MINUTES Sebastien Lemon MD [address] [place] [place] [phone] Referral ID Status Reason Start Date Expiration Date Visits Requested Visits Authorized [id number] Pending Review PCP Requested Referral 03/16/2024 03/16/2025 1 1 Specialty Diagnoses / Procedures Referred By Contac t Referred To Contact Diagnoses Essential tremor Procedures NEUROPSYCHOLOGICAL TESTING CONSULT NEUROBEHAVIORAL STATUS XM PHYS/QHP 1ST HOUR NEUROPSYCHOLOGICAL TST EVAL PHYS/QHP 1ST HOUR NEUROPSYCHOLOGICAL TST EVAL PHYS/QHP EA ADDL HR PSYCL/NRPSYCL TST TECH 2+ TST 1ST 30 MIN PSYCL/NRPSYCL TST TECH 2+ TST EA ADDL 30 MIN Sebastien Lemon MD [address] [address] Referral ID Status Reason Start Date Expiration Date Visits Requested Visits Authorized [id number] New Request PCP Requested Referral 03/16/2024 06/14/2024 1 3 Specialty Diagnoses / Procedures Referred By Contac t Referred To Contact Neurosurgery Diagnoses Essential tremor Procedures CONSULT TO NEUROSURGERY OFFICE/OUTPATIENT [facility] 60 MINUTES Sebastien Lemon MD [address] [place] [place] [phone] Referral ID Status Reason Start Date Expiration Date Visits Requested Visits Authorized [id number] Authorized PCP Requested Referral 03/16/2024 03/16/2025 1 1 Specialty Diagnoses / Procedures Referred By Contac t Referred To Contact MR IMAGING Diagnoses Essential tremor Procedures MRI BRAIN WO/W IVCON MRI BRAIN BRAIN STEM W/O W/CONTRAST MATERIAL Sebastien Lemon MD [address] [address] [place] [address] Referral ID Status Reason Start Date Expiration Date Visits Requested Visits Authorized [id number] New Request Auto-Generat ed Referral 03/16/2024 04/15/2025 1 1 Referral ID Status Reason Start Date Expiration Date V isits Requested Visits Authorized [id number] Closed Auto-Generate d Referral 03/16/2024 04/15/2025 1 1 Chief Complaint and Reason for Visit Chief Complaint Admit Date COPD December 30, 2024 10:1 3am Reason for Visit Admit Date Obesity, class 2 December 30, 2024 10:1 3am ETHEL (obstructive sleep apnea) December 30, 2024 10:13am SOB (shortness of breath) December 30 10:13am Chief Complaint Admit Date COPD December 30, 2024 10:1 3am R06.02 - Shortness of breath February 02, 2025 11:10am R06.02 - Shortness of breath February 04, 2025 8:53am Reason for Visit Admit Date SOB (shortness of breath) December 30 10:13am Obesity, class 2 December 30, 2024 10:1 3am ETHEL (obstructive sleep apnea) December 30, 2024 10:13am Additional Source Comments INFORMATION SOURCE (unrecogn ized section and content) DATE CREATED AUTHOR 07/28/2021 [facility] DATE CREATED AUTHOR AUTHOR'S ORGANIZ ATION 10/01/2021 [facility] DATE CREATED AUTHOR AUTHOR'S ORGANIZ ATION 12/02/2021 [facility] DATE CREATED AUTHOR AUTHOR'S ORGANIZ ATION 08/23/2024 [facility] DATE CREATED AUTHOR AUTHOR'S ORGANIZ ATION 11/24/2024 [facility] DATE CREATED AUTHOR AUTHOR'S ORGANIZ ATION 02/04/2025 [facility] Source Comments (unrecognize d section and content) In the event this informatio n is protected by the Federal Confidentiality of Alcohol and Drug Abuse Patient Records regulations: The Federal rules restrict any use of the information to criminally investigate or prosecute any alcohol or drug abuse patient.[facility] the event this information is protected by the Federal Confidentiality of Alcohol and Drug Abuse Patient Records regulations: The Federal rules restrict any use of the information to criminally investigate or prosecute any alcohol or drug abuse patient.[facility] the event this information is protected by the Federal Confidentiality of Alcohol and Drug Abuse Patient Records regulations: The Federal rules restrict any use of the information to criminally investigate or prosecute any alcohol or drug abuse patient.[facility] the event this information is protected by the Federal Confidentiality of Alcohol and Drug Abuse Patient Records regulations: The Federal rules restrict any use of the information to criminally investigate or prosecute any alcohol or drug abuse patient.[facility] the event this information is protected by the Federal Confidentiality of Alcohol and Drug Abuse Patient Records regulations: The Federal rules restrict any use of the information to criminally investigate or prosecute any alcohol or drug abuse patient.[facility] the event this information is protected by the Federal Confidentiality of Alcohol and Drug Abuse Patient Records regulations: The Federal rules restrict any use of the information to criminally investigate or prosecute any alcohol or drug abuse patient.[facility] the event this information is protected by the Federal Confidentiality of Alcohol and Drug Abuse Patient Records regulations: The Federal rules restrict any use of the information to criminally investigate or prosecute any alcohol or drug abuse patient.[facility] the event this information is protected by the Federal Confidentiality of Alcohol and Drug Abuse Patient Records regulations: The Federal rules restrict any use of the information to criminally investigate or prosecute any alcohol or drug abuse patient.[facility] the event this information is protected by the Federal Confidentiality of Alcohol and Drug Abuse Patient Records regulations: The Federal rules restrict any use of the information to criminally investigate or prosecute any alcohol or drug abuse patient.[facility] the event this information is protected by the Federal Confidentiality of Alcohol and Drug Abuse Patient Records regulations: The Federal rules restrict any use of the information to criminally investigate or prosecute any alcohol or drug abuse patient.[facility] the event this information is protected by the Federal Confidentiality of Alcohol and Drug Abuse Patient Records regulations: The Federal rules restrict any use of the information to criminally investigate or prosecute any alcohol or drug abuse patient.[facility] the event this information is protected by the Federal Confidentiality of Alcohol and Drug Abuse Patient Records regulations: The Federal rules restrict any use of the information to criminally investigate or prosecute any alcohol or drug abuse patient.[facility] the event this information is protected by the Federal Confidentiality of Alcohol and Drug Abuse Patient Records regulations: The Federal rules restrict any use of the information to criminally investigate or prosecute any alcohol or drug abuse patient.[facility] the event this information is protected by the Federal Confidentiality of Alcohol and Drug Abuse Patient Records regulations: The Federal rules restrict any use of the information to criminally investigate or prosecute any alcohol or drug abuse patient.[facility] the event this information is protected by the Federal Confidentiality of Alcohol and Drug Abuse Patient Records regulations: The Federal rules restrict any use of the information to criminally investigate or prosecute any alcohol or drug abuse patient.[facility] the event this information is protected by the Federal Confidentiality of Alcohol and Drug Abuse Patient Records regulations: The Federal rules restrict any use of the information to criminally investigate or prosecute any alcohol or drug abuse patient.[facility] the event this information is protected by the Federal Confidentiality of Alcohol and Drug Abuse Patient Records regulations: The Federal rules restrict any use of the information to criminally investigate or prosecute any alcohol or drug abuse patient.[facility] the event this information is protected by the Federal Confidentiality of Alcohol and Drug Abuse Patient Records regulations: The Federal rules restrict any use of the information to criminally investigate or prosecute any alcohol or drug abuse patient.[facility] the event this information is protected by the Federal Confidentiality of Alcohol and Drug Abuse Patient Records regulations: The Federal rules restrict any use of the information to criminally investigate or prosecute any alcohol or drug abuse patient.[facility] the event this information is protected by the Federal Confidentiality of Alcohol and Drug Abuse Patient Records regulations: The Federal rules restrict any use of the information to criminally investigate or prosecute any alcohol or drug abuse patient.[facility]In the event this information is protected by the Federal Confidentiality of Alcohol and Drug Abuse Patient Records regulations: The Federal rules restrict any use of the information to criminally investigate or prosecute any alcohol or drug abuse patient.[facility] the event this information is protected by the Federal Confidentiality of Alcohol and Drug Abuse Patient Records regulations: The Federal rules restrict any use of the information to criminally investigate or prosecute any alcohol or drug abuse patient.[facility]In the event this information is protected by the Federal Confidentiality of Alcohol and Drug Abuse Patient Records regulations: The Federal rules restrict any use of the information to criminally investigate or prosecute any alcohol or drug abuse patient.[facility] the event this information is protected by the Federal Confidentiality of Alcohol and Drug Abuse Patient Records regulations: The Federal rules restrict any use of the information to criminally investigate or prosecute any alcohol or drug abuse patient.[facility]In the event this information is protected by the Federal Confidentiality of Alcohol and Drug Abuse Patient Records regulations: The Federal rules restrict any use of the information to criminally investigate or prosecute any alcohol or drug abuse patient.[facility]In the event this information is protected by the Federal Confidentiality of Alcohol and Drug Abuse Patient Records regulations: The Federal rules restrict any use of the information to criminally investigate or prosecute any alcohol or drug abuse patient.[facility]In the event this information is protected by the Federal Confidentiality of Alcohol and Drug Abuse Patient Records regulations: The Federal rules restrict any use of the information to criminally investigate or prosecute any alcohol or drug abuse patient.[facility] the event this information is protected by the Federal Confidentiality of Alcohol and Drug Abuse Patient Records regulations: The Federal rules restrict any use of the information to criminally investigate or prosecute any alcohol or drug abuse patient.[facility]In the event this information is protected by the Federal Confidentiality of Alcohol and Drug Abuse Patient Records regulations: The Federal rules restrict any use of the information to criminally investigate or prosecute any alcohol or drug abuse patient.[facility]In the event this information is protected by the Federal Confidentiality of Alcohol and Drug Abuse Patient Records regulations: The Federal rules restrict any use of the information to criminally investigate or prosecute any alcohol or drug abuse patient.[facility]In the event this information is protected by the Federal Confidentiality of Alcohol and Drug Abuse Patient Records regulations: The Federal rules restrict any use of the information to criminally investigate or prosecute any alcohol or drug abuse patient.[facility]In the event this information is protected by the Federal Confidentiality of Alcohol and Drug Abuse Patient Records regulations: The Federal rules restrict any use of the information to criminally investigate or prosecute any alcohol or drug abuse patient.[facility]In the event this information is protected by the Federal Confidentiality of Alcohol and Drug Abuse Patient Records regulations: The Federal rules restrict any use of the information to criminally investigate or prosecute any alcohol or drug abuse patient.[facility]In the event this information is protected by the Federal Confidentiality of Alcohol and Drug Abuse Patient Records regulations: The Federal rules restrict any use of the information to criminally investigate or prosecute any alcohol or drug abuse patient.[facility] the event this information is protected by the Federal Confidentiality of Alcohol and Drug Abuse Patient Records regulations: The Federal rules restrict any use of the information to criminally investigate or prosecute any alcohol or drug abuse patient.[facility] HospitalIn the event this information is protected by the Federal Confidentiality of Alcohol and Drug Abuse Patient Records regulations: The Federal rules restrict any use of the information to criminally investigate or prosecute any alcohol or drug abuse patient.[facility] HospitalIn the event this information is protected by the Federal Confidentiality of Alcohol and Drug Abuse Patient Records regulations: The Federal rules restrict any use of the information to criminally investigate or prosecute any alcohol or drug abuse patient.[facility] Reason for Visit (unrecogniz ed section and content) Reason Comments Follow Up Specialty Diagnoses / Procedures Referred By Contac t Referred To Contact Diagnoses Essential tremor Procedures PROVIDER ORDERED FOLLOW UP OFFICE/OUTPATIENT NEW HIGH MDM 60-74 MINUTES Sebastien Lemon MD [address] [address] Referral ID Status Reason Start Date Expiration Date V isits Requested Visits Authorized [id number] Closed PCP Requested Referral 11/20/2022 02/18/2023 1 1 Reason Comments Post-Op Visit Reason Comments New Patient Possible Parkinsons Reason Comments Results genetic testing post baldo RAD51C Reason Comments Other Escitalopram Approva l from [employer] Reason Comments Parkinson's Disease Patient reports incr eased issues of dropping things and daughter reports observing increased trermors. Specialty Diagnoses / Procedures Referred By Contac t Referred To Contact Diagnoses Essential tremor Parkinsonism, unspecified Parkinsonism type (HCC) Procedures PROVIDER ORDERED FOLLOW UP OFFICE/OUTPATIENT NEW HIGH MDM 60-74 MINUTES Sebastien Lemon MD [address] [address] Referral ID Status Reason Start Date Expiration Date V isits Requested Visits Authorized [id number] Closed PCP Requested Referral 05/04/2022 02/01/2023 1 1 Reason Comments Follow Up Reason Comments Established Patient Follow up Reason Onset Date Comments Refill Request 02/21/2023 Reason Comments Computator Exam Specialty Diagnoses / Procedures Referred By Contac t Referred To Contact Diagnoses Essential tremor Procedures PROVIDER ORDERED FOLLOW UP Sebastien Lemon MD [address] [address] Referral ID Status Reason Start Date Expiration Date V isits Requested Visits Authorized [id number] Closed PCP Requested Referral 05/22/2023 08/20/2023 1 1 Reason Comments Follow Up Pelvic exam Reason Onset Date Comments Refill Request 03/12/2024 Reason Onset Date Comments Refill Request 05/01/2024 Reason Comments Established Patient DBS/HIFU Eval Video Testing ET Specialty Diagnoses / Procedures Referred By Contac t Referred To Contact Neurosurgery Diagnoses Essential tremor Procedures CONSULT TO NEUROSURGERY OFFICE/OUTPATIENT [facility] 60 MINUTES Sebastien Lemon MD [address] [address] Referral ID Status Reason Start Date Expiration Date V isits Requested Visits Authorized [id number] Closed PCP Requested Referral 03/16/2024 03/16/2025 1 1 Specialty Diagnoses / Procedures Referred By Contac t Referred To Contact CT IMAGING Diagnoses Essential tremor Procedures CT BRAIN WO IVCON CT HEAD/BRAIN W/O CONTRAST MATERIAL Sebastien Lemon MD [address] [address] [address] Imaging [facility] Referral ID Status Reason Start Date Expiration Date V isits Requested Visits Authorized [id number] Closed Auto-Generate d Referral 03/16/2024 04/15/2025 1 1 Reason Comments DBS Eval Cancellation Reason Comments Mammogram Result Call Back Reason Comments Radiology US Specialty Diagnoses / Procedures Referred By Contac t Referred To Contact BR IMAGING Diagnoses Abnormal mammogram Procedures US BREAST LTD LEFT US BREAST UNI REAL TIME WITH IMAGE LIMITED Parul Chandra MD [address] [place] [address] Br Imaging [address] [place] [address] Referral ID Status Reason Start Date Expiration Date V isits Requested Visits Authorized [id number] Closed Auto-Generate d Referral 05/19/2024 06/18/2025 1 1 Reason Comments Yearly Exam Reason Onset Date Comments Refill Request 01/04/2025 Care Teams (unrecognized sec tion and content) Oxygen Equipment Aide Relationship Specialty Start Date End Date Meir Overton MD [address] [place] [address] PCP - General Internal Medicine 08/17/21 Oxygen Equipment Aide Relationship Specialty Start Date End Date Meir Overton MD [address] [place] [address] PCP - General Internal Medicine 08/17/21 Oxygen Equipment Aide Relationship Specialty Start Date End Date Meir Overton MD [address] [place] [address] PCP - General Internal Medicine 08/17/21 Oxygen Equipment Aide Relationship Specialty Start Date End Date Meir Overton MD [address] [place] [address] PCP - General Internal Medicine 08/17/21 Oxygen Equipment Aide Relationship Specialty Start Date End Date Meir Overton MD [address] [place] [address] PCP - General Internal Medicine 08/17/21 Oxygen Equipment Aide Relationship Specialty Start Date End Date Meir Overton MD [address] [place] [address] PCP - General Internal Medicine 08/17/21 Oxygen Equipment Aide Relationship Specialty Start Date End Date Meir Overton MD [address] [place] [address] PCP - General Internal Medicine 08/17/21 Oxygen Equipment Aide Relationship Specialty Start Date End Date Meir Overton MD [address] [place] [address] PCP - General Internal Medicine 08/17/21 Oxygen Equipment Aide Relationship Specialty Start Date End Date Meir Overton MD [address] [place] [address] PCP - General Internal Medicine 08/17/21 Oxygen Equipment Aide Relationship Specialty Start Date End Date Meir Overton MD [address] [place] [address] PCP - General Internal Medicine 08/17/21 Oxygen Equipment Aide Relationship Specialty Start Date End Date Meir Overton MD [address] [place] [address] PCP - General Internal Medicine 08/17/21 Oxygen Equipment Aide Relationship Specialty Start Date End Date Meir Overton MD [address] [place] [address] PCP - General Internal Medicine 08/17/21 Oxygen Equipment Aide Relationship Specialty Start Date End Date Meir Overton MD [address] [place] [address] PCP - General Internal Medicine 08/17/21 Oxygen Equipment Aide Relationship Specialty Start Date End Date Meir Overton MD [address] [place] [address] PCP - General Internal Medicine 08/17/21 Oxygen Equipment Aide Relationship Specialty Start Date End Date Meir Overton MD [address] [place] [address] PCP - General Internal Medicine 08/17/21 Oxygen Equipment Aide Relationship Specialty Start Date End Date Meir Overton MD [address] [place] [address] PCP - General Internal Medicine 08/17/21 Oxygen Equipment Aide Relationship Specialty Start Date End Date Meir Overton MD [address] [place] [address] PCP - General Internal Medicine 08/17/21 Oxygen Equipment Aide Relationship Specialty Start Date End Date Meir Overton MD [address] [place] [address] PCP - General Internal Medicine 08/17/21 Oxygen Equipment Aide Relationship Specialty Start Date End Date Meir Overton MD [address] [place] [address] PCP - General Internal Medicine 08/17/21 Oxygen Equipment Aide Relationship Specialty Start Date End Date Meir Overton MD [address] [place] [address] PCP - General Internal Medicine 08/17/21 Oxygen Equipment Aide Relationship Specialty Start Date End Date Meir Overton MD [address] [place] [address] PCP - General Internal Medicine 08/17/21 Oxygen Equipment Aide Relationship Specialty Start Date End Date Meir Overton MD [address] [place] [address] PCP - General Internal Medicine 08/17/21 Oxygen Equipment Aide Relationship Specialty Start Date End Date Meir Overton MD [address] [place] [address] PCP - General Internal Medicine 08/17/21 Oxygen Equipment Aide Relationship Specialty Start Date End Date Meir Overton MD [address] [place] [address] PCP - General Internal Medicine 08/17/21 Oxygen Equipment Aide Relationship Specialty Start Date End Date Meir Overton MD [address] [place] [address] PCP - General Internal Medicine 08/17/21 Oxygen Equipment Aide Relationship Specialty Start Date End Date Meir Overton MD [address] [place] [address] PCP - General Internal Medicine 08/17/21 Oxygen Equipment Aide Relationship Specialty Start Date End Date Meir Overton MD [address] [email or web address] [address] [place] [address] PCP - General Internal Medicine 08/17/21 Oxygen Equipment Aide Relationship Specialty Start Date End Date Meir Overton MD [address] [facility] [[email or web address] [address] [place] [address] PCP - General Internal Medicine 08/17/21 Oxygen Equipment Aide Relationship Specialty Start Date End Date Meir Overton MD [address] [facility] [address] [place] [address] PCP - General Internal Medicine 08/17/21 Team Status: Active Member Role Status Dates Dr. Jud Vega DO Family Provider Active Dr. Meir Overton MD Primary Care Provider Active Team Status: Inactive Member Role Status Dates Dr. Meir Overton MD Primary Care Provider Active Start: December 30, 2024 End: December 30, 2024 Dr. Meir Overton MD Referring Provider Active Start: December 30, 2024 End: December 30, 2024 Dr. Jose Ham DO Attending Provider Active S tart: December 30, 2024 End: December 30, 2024 Oxygen Equipment Aide Relationship Specialty Start Date End Date Meir Overton MD [address] [facility] [address] [place] [address] PCP - General Internal Medicine 08/17/21 Team Status: Active Member Role/Relationship Status Dates Dr. Meir Overton MD Primary Care Provider Active Team Status: Inactive Member Role/Relationship Status Dates Dr. Meir Overton MD Primary Care Provider Active Start: December 30, 2024 End: December 30, 2024 Dr. Meir Overton MD Referring Provider Active Start: December 30, 2024 End: December 30, 2024 Dr. Jose Brown , DO Attending Provider Active S tart: December 30, 2024 End: December 30, 2024 Team Status: Inactive Member Role/Relationship Status Dates Dr. Meir Overton MD Primary Care Provider Active Start: February 02, 2025 End: February 02, 2025 Dr. Jose Ham , DO Attending Provider Active S tart: February 02, 2025 End: February 02, 2025 Dr. Jose Ham , DO Referring Provider Active S tart: February 02, 2025 End: February 02, 2025 Team Status: Active Member Role/Relationship Status Dates Dr. Meir Overton MD Primary Care Provider Active Start: February 04, 2025 Dr. Jose Ham , DO Attending Provider Active S tart: February 04, 2025 Dr. Jose Ham , DO Referring Provider Active S tart: February 04, 2025 Dr. Jose Ham , DO Other Provider Active Start : February 04, 2025 Goals (unrecognized section and content) Goals may be documented in a n alternate sectionGoals may be documented in an alternate section FOR RECORDS PERTAINING TO PATIENTS WHO ARE OR HAVE BEEN ENROLLED IN A CHEMICAL DEPENDENCY/SUBSTANCEABUSE PROGRAM, SOME INFORMATION MAY BE OMITTED. This clinical summary was aggregated from multiple sources. Caution should be exercised in using it in the provision of clinical care. This summary normalizes information from multiple sources, and as a consequence, information in this document may materially change the coding, format and clinical context of patient data. In addition, data may be omitted in some cases. CLINICAL DECISIONS SHOULD BE BASED ON THE PRIMARY CLINICAL RECORDS. [facility] [employer] provides no warranty or guarantee of the accuracy or completeness of information in this document.
== END | disposition home or self-care (01) ==
LOC: PSN 09:57
PROVIDERS: PCP Internal Medicine; Referring Provider Internal Medicine Critical Care Medicine; Visit Provider Internal Medicine Critical Care Medicine
DX: R06.02 Shortness of breath (principal)
CPT/HCPCS: 94060; 94726; 94729